=== PATIENT | female | born 1970 | race Caucasian/White ===

== ENCOUNTER 2021-06-07 17:44 | Outpatient (CLI) | payer MEDICARE, SELFPAY ==
--- NOTE | ~2021-06-07 | MM_ITS ---
EXAMINATION: MM screening [facility] BI w babar HISTORY: Screening TECHNIQUE: Craniocaudal and mediolateral oblique 3-D tomosynthesis images were obtained and synthetic 2-D images were generated. CAD analysis was submitted and interpreted. COMPARISON: Comparison to multiple prior studies sequentially, with oldest reviewed study dated 07/23. BREAST PARENCHYMAL COMPOSITION: There are scattered areas of fibroglandular density. FINDINGS: There is no evidence of suspicious mass, calcification, or architectural distortion to sugg est malignancy in either breast. There has been no suspicious interval change. IMPRESSION: 1. No mammographic evidence of malignancy. 2. Recommend routine screening mammography in one year. BI-RADS Category 1: Negative Reviewed, dictated and finalized at location A.
== END 2021-06-07 17:45 | disposition home or self-care (01) ==
LOC: ANHIMG 17:52
PROVIDERS: PCP Emergency Medicine; Visit Provider Emergency Medicine
DX: Z12.31 Encounter for screening mammogram for malignant neoplasm of breast (principal)
CPT/HCPCS: 77063; 77067

== ENCOUNTER 2022-08-10 01:56 | Emergency (ER) | payer MEDICARE, MEDICAID, SELFPAY ==
[2022-08-10 02:04] VITALS: BP 147/107; PULSE 103; RESP 20; O2SAT 100
[2022-08-10] MEDS: diphenhydrAMINE HCl CAP 25 MG CAPSULE 50 MG PO (02:44)
[2022-08-10] MEDS: FAMOTIDINE 20 MG TABLET PO (02:44)
--- NOTE | 2022-08-10 02:49 | ED.GENADULT ---
HPI - General Adult General Chief complaint: Extremity Injury, Upper Stated complaint: left hand swollen Time Seen by Provider: 08/10/22 02:19 History of Present Illness HPI narrative: Patient 52-year-old female presents emerged from with chief complaint of left hand swelling. Patient reports that she was laying down on her bed and noticed that her hand started swelling the patient states that she had a bit of a tingling sensation on the hand and noticed that the dorsum of her left hand was significantly swollen. The patient states that the swelling went down and then came back up and noticed that she had some small bumps on the hand. The patient denies itching reports that her hand also cramped up during the episode. Related Data Allergies Allergy/AdvReac Type Severity Reaction Status Date / Time naproxen Allergy Mild ITCHING Verified 08/10/22 02:08 AND RASH Penicillins Allergy Mild RASH WITH Verified 08/10/22 02:08 ITCHING fentanyl AdvReac Unknown N&V Verified 08/10/22 02:08 Review of Systems Review of Systems: A 10 system review of systems was completed on the patient and is negative except for what is stated in the HPI. Nursing and ancillary documentation was reviewed. Exam Narrative: GENERAL: Well-appearing, well-nourished, and in no acute distress. HEAD: Normocephalic, atraumatic. EYES: PERRLA and EOMI. ENT: Nares clear, no rhinorrhea or epistaxis. Mucous membranes moist. NECK: Supple. CHEST: Clear to auscultation. No respiratory distress. HEART: Regular rate and rhythm. No murmur heard. Normal peripheral pulses. ABDOMEN: Soft, nontender, nondistended, normal active bowel sounds. EXTREMITIES: Normal range of motion. No edema. SKIN: Warm, dry, small red erythematous rash present on the dorsum of the left hand at the thenar area. There is no fluctuance there is no crepitance. Patient has full range of motion her hand. NEURO: No focal deficits. Alert and oriented x3. 5 out of 5 strength in all extremities no paresthesias present no facial droop. NIH 0 PSYCH: Normal mood and affect. Course Vital Signs Vital signs: Vital Signs Pulse Rate 103 H 08/10/22 02:04 Respiratory Rate 20 08/10/22 02:04 Blood Pressure 147/107 H 08/10/22 02:04 Pulse Oximetry 100 08/10/22 02:04 Pulse Rate 103 H 08/10/22 02:04 Respiratory Rate 20 08/10/22 02:04 Blood Pressure 147/107 H 08/10/22 02:04 Pulse Oximetry 100 08/10/22 02:04 Medical Decision Making Vital Signs Vital Signs: Vital Signs Pulse Rate 103 H 08/10/22 02:04 Respiratory Rate 20 08/10/22 02:04 Blood Pressure 147/107 H 08/10/22 02:04 Pulse Oximetry 100 08/10/22 02:04 Pulse Rate 103 H 08/10/22 02:04 Respiratory Rate 20 08/10/22 02:04 Blood Pressure 147/107 H 08/10/22 02:04 Pulse Oximetry 100 08/10/22 02:04 Discharge Plan Discharge Clinical Impression: Allergic reaction Patient Disposition: Home, Self-Care Condition: Stable Instructions: Antibiotic Form, Allergies (ED), General Allergic Reaction (ED) Prescriptions: New prednisone 20 mg tablet 40 mg PO DAILY 5 Days Qty: 10 0RF Follow-up/Referrals: Tal Rosario MD [Primary Care Provider] - Time of Disposition: 02:52
[2022-08-10 02:59] VITALS: BP 143/99; PULSE 71; RESP 23; O2SAT 95
== END 2022-08-10 03:04 | disposition home or self-care (01) ==
PROVIDERS: Emergency Provider Emergency Medicine; PCP Emergency Medicine
DX: T78.40XA Allergy, unspecified, initial encounter (principal)
CPT/HCPCS: 96372; 99283; A9270; J1100

== ENCOUNTER 2022-11-05 15:00 | Outpatient (CLI) | payer MEDICARE, SELFPAY ==
--- NOTE | ~2022-11-05 | MM_ITS ---
EXAMINATION: MM screening [facility] BI w babar HISTORY: Screening TECHNIQUE: Craniocaudal and mediolateral oblique 3-D tomosynthesis images were obtained and synthetic 2-D images were generated. CAD analysis was submitted and interpreted. COMPARISON: Comparison to multiple prior studies sequentially, with oldest reviewed study dated 03/2016. BREAST PARENCHYMAL COMPOSITION: There are scattered areas of fibroglandular density. FINDINGS: There is no evidence of suspicious mass, calcification, or architectural distortion to sugg est malignancy in either breast. There has been no suspicious interval change. IMPRESSION: 1. No mammographic evidence of malignancy. 2. Recommend routine screening mammography in one year. BI-RADS Category 1: Negative Reviewed, dictated and finalized at location A. SORTER
== END 2022-11-05 15:01 | disposition home or self-care (01) ==
PROVIDERS: PCP Emergency Medicine; Visit Provider Emergency Medicine
DX: Z12.31 Encounter for screening mammogram for malignant neoplasm of breast (principal)
CPT/HCPCS: 77063; 77067

== ENCOUNTER 2023-12-02 15:27 | Outpatient (CLI) | payer MEDICARE, MEDICAID, SELFPAY ==
--- NOTE | ~2023-12-02 | MM_ITS ---
EXAMINATION: MM screening [facility] BI w babar HISTORY: Screening mammogram TECHNIQUE: Craniocaudal and mediolateral oblique 3-D tomosynthesis images were obtained and synthetic 2-D images were generated. CAD analysis was submitted and interpreted. COMPARISON: November 05, 2022, June 07, 2021, June 02, 2019 bilateral screening mammogram e xaminations BREAST PARENCHYMAL COMPOSITION: There are scattered areas of fibroglandular density. FINDINGS: There is no evidence of suspicious mass, calcification, or architectural distortion to sugg est malignancy in either breast. There has been no suspicious interval change. IMPRESSION: 1. No mammographic evidence of malignancy. 2. Recommend routine screening mammography in one year. BI-RADS Category 1: Negative Reviewed, dictated and finalized at location A.
== END 2023-12-02 15:28 | disposition home or self-care (01) ==
PROVIDERS: PCP Emergency Medicine; Visit Provider Emergency Medicine
DX: Z12.31 Encounter for screening mammogram for malignant neoplasm of breast (principal)
CPT/HCPCS: 77063; 77067

== ENCOUNTER 2024-01-06 13:56 | Emergency (ER) | payer MEDICARE, MEDICAID, SELFPAY ==
[2024-01-06 14:03] VITALS: BP 162/109; PULSE 100; RESP 16; TEMP 36.6; O2SAT 99
[2024-01-06 14:18] VITALS: BP 153/85; PULSE 80; RESP 15; O2SAT 99
[2024-01-06 14:25] LABS: Basophils Absolute Auto 0.1 K/mm3 (0.0-0.1); Basophils Percent Auto 0.7 % (0.2-1.2); Eosinophils Absolute Auto 0.5 K/mm3 (0-0.3); Eosinophils Percent Auto 4.1 % (0-4.4); Hematocrit 47.7 % (37.0-47.0); Hemoglobin 15.7 g/dL (12.0-15.0); Immature Granulocyte Absolute 0.02 K/mm3 (0.00-0.031); Immature Granulocyte Percent A 0.2 % (0-0.5); Lymphocytes Absolute Auto 3.72 K/mm3 (0.9-3.2); Mean Corpuscular HGB Conc 32.9 g/dl (32-36); Mean Corpuscular Hemoglobin 29.8 pg (26-34); Mean Corpuscular Volume 90.7 fl (80-100); Mean Platelet Volume 11.1 fl (7.4-10.4); Monocytes Absolute Auto 1.2 K/mm3 (0.1-0.6); Monocytes Percent Auto 9.6 % (2.6-8.5); Neutrophils Absolute Auto 6.9 K/mm3 (1.3-6.7); Neutrophils Percent Auto 55.4 % (45.5-73.1); Platelet Count Result 391 k/mm3 (150-375); Red Blood Count 5.26 M/mm3 (4.2-5.4); Red Cell Distribution Width 13.2 % (11.5-14.5); White Blood Count 12.4 K/mm3 (4.5-10.0)
[2024-01-06] MEDS: SODIUM CHLORIDE 0.9% IV 1,000 ML 999 ML IV CONT (14:26)
--- NOTE | 2024-01-06 14:28 | ED.GENADULT ---
HPI - General Adult General Chief complaint: Unspecified Stated complaint: cramping, diarrhea, JUAN Time Seen by Provider: 01/06/24 13:58 History of Present Illness HPI narrative: 53-year-old female history of polycythemia vera and chronic back pain presents to the emergency room for evaluation nausea vomiting and a burning sensation in her fingertips. Patient admits to taking multiple herbal supplements, RYZE, for the past 9 days. Patient states she has been ingesting a coffee, tea, hot cocoa supplements that are made from various ground up with mushrooms. Reports her last use was 2 days ago when she began experiencing the abdominal cramping, burning sensation fingers Related Data Allergies Allergy/AdvReac Type Severity Reaction Status Date / Time naproxen Allergy Mild ITCHING Verified 08/10/22 02:08 AND RASH Penicillins Allergy Mild RASH WITH Verified 08/10/22 02:08 ITCHING fentanyl AdvReac Unknown N&V Verified 08/10/22 02:08 Review of Systems Review of Systems: CONSTITUTIONAL: Denies fever, chills, or sweats. EYES: Denies visual changes, redness, or discharge. ENT: Denies rhinorrhea, congestion, sore throat, or otalgia. CARDIOVASCULAR: Denies chest pain, palpitations, or edema. RESPIRATORY: Denies cough or dyspnea. GASTROINTESTINAL: Reports abdominal pain, nausea, vomiting, diarrhea GENITOURINARY: Denies dysuria or hematuria. SKIN: Denies rash or itching. MUSCULOSKELETAL: Denies back pain, joint pain, or myalgia. NEUROLOGIC: Reports paresthesias in finger tip. PSYCHIATRIC: Denies anxiety or depression. Exam Narrative: GENERAL: Well-appearing, well-nourished, morbidly obese HEAD: Normocephalic, atraumatic. EYES: Conjunctivae normal, PERRLA and EOMI. CHEST: Clear to auscultation. No respiratory distress. No wheezes rales or rhonchi. HEART: Regular rate and rhythm. No murmur heard. Normal peripheral pulses. ABDOMEN: Soft, nontender, nondistended, normal active bowel sounds. BACK: No CVA tenderness EXTREMITIES: Normal range of motion. No edema. No clubbing or cyanosis SKIN: Warm, dry, no rash. No noted wounds NEURO: No focal deficits. Alert and oriented x3. MAEW. CN's II-XI intact bilaterally, normal gait PSYCH: Cooperative. Anxious. Course Vital Signs Vital signs: Vital Signs Temperature 36.6 C 01/06/24 14:03 Pulse Rate 100 01/06/24 14:03 Respiratory Rate 16 01/06/24 14:03 Blood Pressure 162/109 H 01/06/24 14:03 Pulse Oximetry 99 01/06/24 14:03 Oxygen Delivery Room Air 01/06/24 14:03 Temperature 36.6 C 01/06/24 14:03 Pulse Rate 63 01/06/24 15:31 Respiratory Rate 18 01/06/24 15:31 Blood Pressure 122/108 H 01/06/24 15:31 Pulse Oximetry 100 01/06/24 15:31 Oxygen Delivery Room Air 01/06/24 14:03 Medical Decision Making MDM Narrative Medical decision making narrative: 53-year-old female presented to emergency room complaints of abdominal cramping, vomiting and diarrhea for couple of days. Stated she has been ingesting a herbal supplemental TPN coffee containing mushroom products. Poison Control is contacted, recommendations were to be drawn CMP to assess for kidney and liver function. Liver was unremarkable. Urine showed evidence of a urinary tract infection. Patient was given Zofran her symptoms instructed patient to stay using the supplemental drinks and push fluids. Vital Signs Vital Signs: Vital Signs Temperature 36.6 C 01/06/24 14:03 Pulse Rate 100 01/06/24 14:03 Respiratory Rate 16 01/06/24 14:03 Blood Pressure 162/109 H 01/06/24 14:03 Pulse Oximetry 99 01/06/24 14:03 Oxygen Delivery Room Air 01/06/24 14:03 Temperature 36.6 C 01/06/24 14:03 Pulse Rate 63 01/06/24 15:31 Respiratory Rate 18 01/06/24 15:31 Blood Pressure 122/108 H 01/06/24 15:31 Pulse Oximetry 100 01/06/24 15:31 Oxygen Delivery Room Air 01/06/24 14:03 Lab Data 01/06/24 14:19 01/06/24 14:19 Labs:
[2024-01-06 14:36] LABS: Alanine Aminotransferase 31 U/L (6-35); Albumin Level 4.8 g/dL (3.5-5.1); Alkaline Phosphatase 87 U/L (38-126); Anion Gap 9 mmol/L (4-12); Aspartate Amino Transferase 37 U/L (14-36); Blood Urea Nitrogen 17 mg/dL (7-17); Calcium 9.5 mg/dL (8.4-10.2); Carbon Dioxide 24 mmol/L (22-30); Chloride 104 mmol/L (98-107); Estimated CRCL calculation 88 ml/min; Estimated Glomerular Filt Rate > 60; Glucose 105 mg/dL (65-110); Lipase 70 U/L (23-300); Sodium 137 mmol/L (137-145)
[2024-01-06 14:37] LABS: Large Platelets Present; Platelet Estimate Slightly Increased (Adequate); Schistocytes None Seen
[2024-01-06] MEDS: diphenhydrAMINE HCl INJ 50 MG/ML VIAL 25 MG IV PUSH (14:41)
[2024-01-06] MEDS: ONDANSETRON INJ 4 MG/2 ML VIAL IV PUSH (15:06)
[2024-01-06 15:17] VITALS: BP 156/78; PULSE 63; RESP 15; O2SAT 100
[2024-01-06 15:31] VITALS: BP 122/108; PULSE 63; RESP 18; O2SAT 100
[2024-01-06 15:34] LABS: Appearance Urine Cloudy (Clear); Bacteria Urine 3+ /hpf; Bilirubin Urine 1+ (Negative); Blood Urine Negative (Negative); Color Urine Dark Yellow (Yellow); Glucose Urine UA Negative (Negative); Hyaline Casts Urine Present /lpf; Ketones Urine 1+ mg/dL (Negative); Leukocyte Esterase Ur Negative LEU/UL (Negative); Need Manual Microscopic Reviewed; Nitrate Urine Negative (Negative); Protein Urine 1+ mg/dL (Negative); Squamous Epithelial Cell Urine Few /hpf (Few); pH Urine 5.5 (5.0-9.0)
[2024-01-06 15:37] LABS: Add Urine Microscopic? YES; Specific Grav Ur 1.031 (1.001-1.035)
--- NOTE | 2024-01-06 15:46 | PC.NURSE ---
1407 Spoke with poison control who recommended testing the pts liver and kidney functions as herbs can cause damage.
== END 2024-01-06 15:59 | disposition home or self-care (01) ==
PROVIDERS: Emergency Provider Nurse Practitioner Family; PCP Emergency Medicine
DX: K52.9 Noninfective gastroenteritis and colitis, unspecified (principal); T65.91XA Toxic effect of unspecified substance, accidental (unintentional), initial encounter; N30.90 Cystitis, unspecified without hematuria
CPT/HCPCS: 36415; 80053; 81001; 83690; 85025; 87077; 87086; 87088; 96361; 96374; 96375; 99284; J1200; J2405; J7030

== ENCOUNTER 2024-01-09 08:39 | Outpatient (CLI) | payer MEDICARE, MEDICAID, SELFPAY ==
--- NOTE | ~2024-01-09 | DEXA_ITS ---
Bone Density Report Name: MELODY CHARLTON Age: 53 Sex: Female Ethnicity: White Date of : 1970 Indication: postmenopausal; screening for osteoporosis; history of glucocorticoids; cancer; asthma or emphysema; Referring Provider: IRMA MOSQUERA Study: Bone densitometry was performed. Exam Date: January 09, 2024 Accession number: [id number] Bone Density: Region BMD T-score Z-score Classification AP Spine(L1-L4) 1.043 0.0 1.1 Normal Femoral Neck (Left) 0.742 -1.0 0.1 Normal Total Hip (Left) 1.034 0.8 1.5 Normal Femoral Neck (Right) 0.713 -1.2 -0.1 Osteopenia Total Hip (Right) 0.985 0.4 1.1 Normal Total Hip Mean 1.009 0.6 1.3 Normal World Health Organization criteria for BMD impression classify patients as: Normal (T-score at or above -1.0), Osteopenia (T-score between -1.0 and -2.5), or Osteoporosis (T-score at or below -2.5). 10-year Fracture Risk(1): Major Osteoporotic Fracture 8.9% Hip Fracture 0.6% Reported Risk Factors: [place] (), Neck BMD=0.713, BMI=41.3, glucocorticoids Input outside FRAX(R) limits. Adjusted to:Fnuyty=278 kg (1) FRAX(R) Version 3.08. Fracture probability calculated for an untreated patient. Fracture probability may be lower if the patient has received treatment. Clinical Information Provided by Patient: Has taken Glucocorticoids Has used the following medications: Vitamin D Has the following medical conditions: Asthma or Emphysema, Cancer Patient maximum height was 68.5 Menopause Age: 52 Drinks caffeinated beverages Onset of menses at age 11 Number of children 2 Impression: The patient has low bone mass, based on the Right Femoral Neck T-score. The patient has an estimated ten-year risk of hip fracture of 0.6% and an estimated ten-year risk of major fracture of 8.9%, based on the WHO FRAX algorithm. The patient has risk factors, including: history of glucocorticoid therapy. Discussion: BONE DENSITY IS LOW AT ONE OR MORE SKELETAL SITES. This patient's lowest T-score is low at one or more skeletal sites. It meets the World Health Organization's (WHO) criteria for ?low bone mass? (T-score between -1.0 and -2.5). The patient's 10-year risk of fracture as calculated by FRAX is less than the threshold where pharmacological therapy is recommended by the National Osteoporosis Foundation (NOF). However, all treatment decisions require clinical judgment and consideration of individual patient factors, including patient preferences, comorbidities, previous drug use, risk factors not captured in the FRAX model (e.g., frailty, falls, vitamin D deficiency, increased bone turnover, interval significant decline in bone density) and possible under or overestimation of fracture risk by FRAX. The patient should follow a healthful lifestyle (good nutrition with adequate calcium and vitamin D, and appropriate weight-bearing exercise). Follow-Up: Consider repeating this study in 2 to 3 years to reassess this patient's status, or sooner if there is some new clinical indication. Reported by: STANISLAW on 01/09/2024 9:24:00 AM. Reviewed, dictated and finalized at location [facility]
== END 2024-01-09 08:40 | disposition home or self-care (01) ==
PROVIDERS: PCP Emergency Medicine; Visit Provider Emergency Medicine
DX: M85.88 Other specified disorders of bone density and structure, other site (principal); Z78.0 Asymptomatic menopausal state
CPT/HCPCS: 77080

== ENCOUNTER 2024-06-07 01:52 | Day surgery (SDC) | payer MEDICARE, MEDICAID, SELFPAY ==
[2024-02-09 15:23] VITALS: BMI 41.1
[2024-03-04 16:09] VITALS: BMI 41.1
--- NOTE | 2024-03-19 10:02 | SUR.PREOP ---
0958 Attempted to call patient in regards to arriving earlier, unable to leave message as the mail box is full. Attempted to call her helper/driver/call or contact centre manager. Was unable to leave message.
--- NOTE | 2024-03-19 11:50 | SUR.PREOP ---
PATIENT CALLED 1150 AND SAID SHE IS NOT CLEANED OUT STILL HAVING BROWN SOFT STOOLS. WE DISCUSSED CANCELLING HER TODAY AND HAVE HER DO A 2 DAY PREP. I TOLD HER I WOULD DISCUSS HER PREP WITH DR. CUADRA AND THEN WE WOULD CALL HER TO GET HER RESCHEDULED. PATIENT SAID SHE HAD TO DO A TWO DAY PREP IN THE PAST. EXPLAINED THAT IF SHE HAD THIS ISSUE BEFORE SHE MOST LIKELY WOULD NEED TO DO A TWO PREP FOR ALL FUTURE COLONOSCOPIES. PATIENT VOICED UNDERSTANDING. [address] CUADRA REGARDING PREP, HE WOULD LIKE HER TO DO HIS STANDARD 2 DAY MIRALAX/MAG CITRATE X2 PREP.
[2024-05-31 11:10] VITALS: BMI 41.8
[2024-06-07 08:56] VITALS: BP 106/64; PULSE 99; RESP 18; TEMP 36.1; O2SAT 99; BMI 41.7
[2024-06-07] MEDS: LACTATED RINGERS 1,000 ML 150 ML IV CONT (09:08)
--- NOTE | 2024-06-07 09:34 | WPDANESEPPF ---
Anes - Initial Pre Proc Eval Procedure: Operation Date: 03/19/24 15:00 Proposed Procedures p Colonoscopy - Wilder Holcomb MD Operation Date: 06/07/24 09:30 Proposed Procedures p Colonoscopy - Wilder Holcomb MD Date/Time: 06/07/24 09:34 Surgeon: Wilder Holcomb MD Pre Op Diagnosis: Family history malignant neoplasm of digestive org Patient Data Age: 54 Gender: F Height: 1.73 m Weight: 124.4 kg Last Vital Signs Temp 97.0 F L 06/07/24 08:56 Pulse 99 06/07/24 08:56 Resp 18 06/07/24 08:56 BP 106/64 06/07/24 08:56 Pulse Ox 99 06/07/24 08:56 O2 Del Method Room Air 06/07/24 08:56 Allergies Allergy/AdvReac Type Severity Reaction Status Date / Time naproxen Allergy Mild ITCHING Verified 06/07/24 08:50 AND RASH Penicillins Allergy Mild RASH WITH Verified 06/07/24 08:50 ITCHING fentanyl AdvReac Unknown N&V Verified 06/07/24 08:50 Home Medications Medication Instructions Recorded Confirmed Type cyclobenzaprine 10 mg tablet 10 mg PO BID PRN Spasms 03/04/24 06/07/24 History dextroamphetamine-amphetamine 15 15 mg PO BID 03/04/24 06/07/24 History mg tablet hydrocodone 7.5 mg-acetaminophen 1 tablet PO TID PRN Pain 03/04/24 06/07/24 History 325 mg tablet albuterol sulfate 90 mcg/actuation 1 puff inhalation PRN PRN 05/31/24 06/07/24 History aerosol inhaler Shortness Of Breath Or Wheezing diazepam 10 mg tablet 10 mg PO BID PRN muscle spasms 05/31/24 06/07/24 History Patient hx anesthesia problems: none Family hx anesthesia problems: none Results Review: All pre-operative results and documents have been reviewed as part of the pre-operative evaluation. [facility] Social History Social History Smoking status: Never smoker Alcohol intake: never Substance use: current Substance use type: marijuana Other substance usage details: Frequency varies, patient has not used recently Last use: Pt unsure Living arrangements: with family Spiritual care concerns: No Anes - Eval Final PreProcedure Day of Procedure 06/07/24 09:34 Patient weight: morbidly obese Heart: regular rate and rhythm Lungs: clear to auscultation Airway: Mallampati scale class II Neurological: alert and oriented Last oral intake: >/= 8 hours ASA classification: III Emergent: no Anesthetic plan: proceed Anesthesia type and monitoring: general GIVS and standard monitoring Results Review: All pre-operative results and documents have been reviewed as part of the pre-operative evaluation. Hx of polylcythemia vera, marijuana smoker, difficult to quantitate. Informed Consent: The patient's anesthetic plan and its attendant risks and benefits were discussed with the patient/family/POA. Questions were solicited and answers provided to the satisfaction of the patient/family/POA.
--- NOTE | 2024-06-07 10:23 | PM.HPGS ---
History of Present Illness History of Present Illness Consent: Risks, benefits, and alternatives have been discussed and questions answered. Patient agrees to proceed with procedure. Chief complaint: Family history malignant neoplasm of digestive org Narrative: Ericka Bruno is a 54 year old female with last colonoscopy 5 years ago, sibling had colon cancer Review of Systems Review of Systems: All systems reviewed & are unremarkable except as noted in HPI and below PMFSH Past Medical History Medical History (Updated 06/07/24 @ 10:26 by Wilder Holcomb MD) Family history of colon cancer Social History Social History Smoking status: Never smoker Alcohol intake: never Substance use: current Substance use type: marijuana Other substance usage details: Frequency varies, patient has not used recently Last use: Pt unsure Living arrangements: with family Spiritual care concerns: No Meds Home Medications and Allergies Home Medications Medication Instructions Recorded Confirmed Type cyclobenzaprine 10 mg tablet 10 mg PO BID PRN Spasms 03/04/24 06/07/24 History dextroamphetamine-amphetamine 15 15 mg PO BID 03/04/24 06/07/24 History mg tablet hydrocodone 7.5 mg-acetaminophen 1 tablet PO TID PRN Pain 03/04/24 06/07/24 History 325 mg tablet albuterol sulfate 90 mcg/actuation 1 puff inhalation PRN PRN 05/31/24 06/07/24 History aerosol inhaler Shortness Of Breath Or Wheezing diazepam 10 mg tablet 10 mg PO BID PRN muscle spasms 05/31/24 06/07/24 History Allergies Allergy/AdvReac Type Severity Reaction Status Date / Time naproxen Allergy Mild ITCHING Verified 06/07/24 08:50 AND RASH Penicillins Allergy Mild RASH WITH Verified 06/07/24 08:50 ITCHING fentanyl AdvReac Unknown N&V Verified 06/07/24 08:50 Vital Signs Vital Signs - 24 hr 06/07/24 08:56 Temperature 97.0 F L Pulse Rate 99 Respiratory Rate 18 Blood Pressure 106/64 Pulse Oximetry 99 Oxygen Delivery Room Air Exam Const: General: comfortable and no acute distress HENMT: Face/Nose/Sinus: Normal nares present Eyes: General: appearance normal, both eyes and all related structures Neck: Neck: no JVD Resp: Auscultation: clear to auscultation bilaterally Cardio: Rate: regular rate Rhythm: regular rhythm GI: Inspection: non-distended GI Palp: Yes Soft to palpation Skin: General skin exam: normal color Neuro: General: gait normal Speech: normal speech Extrem: General: normal to inspection Psych: Mental Status: mental status grossly normal Assessment and Plan Assessment and plan (1) Family history of colon cancer: Code(s): Z80.0 - Family history of malignant neoplasm of digestive organs Status: Acute Assessment and Plan: colonoscopy
[2024-06-07 10:43] VITALS: BP 139/101; PULSE 75; RESP 17; O2SAT 97
[2024-06-07 10:53] VITALS: BP 165/102; PULSE 69; RESP 19; O2SAT 99
[2024-06-07 11:03] VITALS: BP 164/99; PULSE 70; RESP 20; O2SAT 99
== END 2024-06-07 11:18 | disposition home or self-care (01) ==
PROVIDERS: PCP Emergency Medicine; Visit Provider Internal Medicine Gastroenterology
PROC: 0DJD8ZZ Inspection of Lower Intestinal Tract, Via Natural or Artificial Opening Endoscopic (ICD-10-PCS; CPT 45378; principal; 2024-03-19 15:00)
DX: Z12.11 Encounter for screening for malignant neoplasm of colon (principal); K64.4 Residual hemorrhoidal skin tags; K64.8 Other hemorrhoids; F12.90 Cannabis use, unspecified, uncomplicated; E66.01 Morbid (severe) obesity due to excess calories; Z68.41 Body mass index [BMI] 40.0-44.9, adult; Z79.891 Long term (current) use of opiate analgesic; Z79.51 Long term (current) use of inhaled steroids; Z80.0 Family history of malignant neoplasm of digestive organs
CPT/HCPCS: G0105; J2704; J7120

== ENCOUNTER 2025-01-10 01:05 | Day surgery (SDC) | payer MEDICARE, MEDICAID, SELFPAY ==
[2025-01-07 11:09] VITALS: BMI 44.4
--- OUTSIDE RECORDS SUMMARY | 2025-01-10 01:09 | XMS_ITS | Clinical Summary ---
Author Organization [facility] Address [address] [place] [address] Care Team Providers Care Technician Support Engineer Name Role Phone Tal Rosario MD Primary Care Provider [phone] Tal Rosario MD Unavailable Source Comments [facility],non-owned Affiliates and Associated Physician Practices is amultiple site organization consisting of ambulatory clinics and hospital sitesin [place], [place], [place] and [place]. This disclosure is being madepursuant to the Care Everywhere program and may not contain all information available regarding this patient. Last updated 18.[facility] Allergies Active Allergy Reactions Criticality Noted Date Comments Fentanyl OPERATING ROOM SURGICAL TECHNOLOGIST Dysfunction 02/25/2023 Penicillins Anaphylaxis High 02/25/2023 Penicillins Rash Medium 02/25/2023 Medications * Be aware that medications may not be up to date on this document. Alwaysverify current medications with the patient. albuterol HFA (Proventil; Ventolin; Proair) 108 (90 Base) MCG/ACT inhaler INHALE 2 PUFFS BY MOUTH EVERY 4 TO 6 HOURS NEEDED FOR SHORTNESS OF BREATH 2 Active amphetamine-dex troamphetamine (Adderall) 15 MG tablet Take 1 (one) tablet by mouth 2 times daily 3 Active cyclobenzaprine (Flexeril) 10 MG tablet Take 1 (one) tablet by mouth 2 times daily as needed 3 Active diazePAM (Valium) 10 MG tablet Take 1 (one) tablet by mouth Active diphenhydrAMINE (Benadryl) 25 MG capsule Take 1 (one) capsule by mouth every 6 hours as needed Active HYDROcodone-rickey taminophen ([place]) 7.5-325 MG tablet Take 1 (one) tablet by mouth 3 times daily as needed 3 Active spironolactone (Aldactone) 50 MG tablet Take 1 (one) tablet by mouth once daily 3 Active montelukast (Singulair) 10 MG tablet 4 Active Active Problems Problem Noted Date Diagnosed Date 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 Vitreous hemorrhage of left eye (HCC) due to PVD 01/28/2024 Family History Medical History Relation Name Comments Asthma Brother Cancer - Colon Brother Lymphoma Mother Relation Name Status Comments Brother Mother Social History Tobacco Use Types Packs/Day Years Used Date Smoking Tobacco: Never Smokeless Tobacco: Never Tobacco Cessation:Counseling Given: Not Answered Alcohol Use Standard Drinks/Week Comments Not Currently 0 (1 standard drink = 0.6 oz pur e alcohol) Social Comments Unknown Sex and Gender Information Value Date Recorded Sex Assigned at Not on file 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 Gender Identity Not on file Sexual Orientation Not on file Last Filed Vital Signs Vital Sign Reading Time Taken Comments Blood Pressure 130/118 01/27/2024 3:09 AM CDT Pulse 92 01/27/2024 3:09 AM CDT Temperature 36 C (96.8 F) 01/26/2024 9:42 PM CDT Respiratory Rate 19 01/27/2024 2:29 AM CDT Oxygen Saturation 96% 01/27/2024 3:09 AM CDT Inhaled Oxygen Concentration - - Weight 122.5 kg (270 lb) 01/26/2024 6:29 PM CDT Height 172.7 cm (5' 8 ) 01/26/2024 6:29 PM CDT Body Mass Index 41.05 01/26/2024 6:29 PM CDT Plan of Treatment Health Maintenance Due Date Last Done Comments OGNICOLERD (AGES 45-75) - COL ON CA SCREENING 1968 COLON MONITORING 1968 COLONOSCOPY - COLON CA SCREENING 1968 CT COLONOGRAPHY - COLON CA SCREENING 1968 Colorectal Cancer Screening 1968 FIT - COLON CA SCREENING 1968 FLEX SIG - COLON CA SCREENING 1968 LIPID TESTING 1968 MAMMOGRAM 1968 PAP SMEAR 1968 HEPATITIS C SCREENING 03/19/1986 DTAP/TDAP/TD VACCINES (1 - Tdap) 1987 HEPATITIS B VACCINE (1 of 3 - 19+ 3-dose series) 1987 PNEUMOCOCCAL VACCINE 50+ (1 of 1 - PCV) 2018 ZOSTER VACCINE (1 of 2) 2018 COVID-19 VACCINE (1 - 2023-2 5 season) 2024 DEPRESSION SCREENING 09/22/2024 MEDICARE AWV CALENDAR YEAR 2024 INFLUENZA VACCINE (Season Ended) 2025 SCREENING FOR DIABETES 01/25/2027 01/26/2024 HIV SCREENING Completed 01/27/2024 HIB VACCINE Aged Out No longer eligi ble based on patient's age to complete this topic HPV VACCINE Aged Out No longer eligi ble based on patient's age to complete this topic MENINGOCOCCAL (Group B) VACC INE SHARED DECISION-MAKING Aged Out No longer eligibl e based on patient's age to complete this topic MENINGOCOCCAL GROUPS A/C/Y/W VACCINE Aged Out No longer eligible b ased on patient's age to complete this topic Procedures Procedure Name Priority Date/Time Associated Diagnosis Comments HIV-1 HIV-2 ANTIBODY + HIV P24 AG PANEL STAT 01/27/2024 2:59 AM CDT COMPREHENSIVE METABOLIC PANEL STAT 01/26/2024 11:35 PM CDT from Last 3 Months or Most Recently Relevant to Health Maintenance Results * HIV-1 HIV-2 ANTIBODY + HIV P24 AG PANEL (01/27/2024 2:59 AM CDT) HIV Antigen/Antibod y 1 & 2 Non-reacti ve Non-react alina 01/27/2024 3:53 AM CDT [facility] Comment:No Laboratory eviden ce of HIV infection. Blood BLOOD SPECIMEN / Unknown Venipuncture / Unknown 01/27/2024 2:59 AM CDT 01/27/2024 3:06 AM CDT us Sahil Ponce MD LAB - CHEMISTRY ORDERABLES Fin al Result [facility] [address] [place] [address], [facility] [phone] * (ABNORMAL) COMPREHENSIVE METABOLIC PANEL (01/26/2024 11:35 PM CDT) BUN 13 7 - 26 mg/dL 01/27/2024 12:20 AM [facility] Creatinine 0.84 0.56 - 0.96 mg/dL 01/27/2024 12:20 AM [facility] Sodium 138 136 - 145 mmol/L 01/27/2024 12:20 AM [facility] Potassium 4.1 3.5 - 4.5 mmol/L 01/27/2024 12:20 AM [facility] Chloride 106 98 - 107 mmol/L 01/27/2024 12:20 AM [facility] CO2 21(L) 22 - 29 mmol/L 01/27/2024 12:20 AM [facility] Glucose 100 70 - 115 mg/dL 01/27/2024 12:20 AM [facility] Calcium 10.1 8.4 - 10.2 mg/dL 01/27/2024 12:20 AM [facility] Protein Total 7.3 6.0 - 8.3 g/dL 01/27/2024 12:20 AM [facility] Albumin 4.0 3.4 - 5.0 g/dL 01/27/2024 12:20 AM [facility] Bilirubin Total 0.5 0.2 - 1.2 mg/dL 01/27/2024 12:20 AM [facility] Alkaline Phosphatase 85 40 - 150 U/L 01/27/2024 12:20 AM [facility] ALT 19 5 - 55 U/L 01/27/2024 12:20 AM [facility] AST 22 5 - 34 U/L 01/27/2024 12:20 AM [facility] Anion Gap 11 6 - 16 01/27/2024 12:20 AM [facility] BUN/Creatinine Ratio 15 7 - 23 01/27/2024 12:20 AM [facility] Osmolality Calculated 286 275 - 295 mOsm/kg 01/27/2024 12:20 AM [facility] Albumin/Globulin Ratio 1.2 1.1 - 2.3 01/27/2024 12:20 AM [facility] eGFR by CKD-EPI 82(L) >=90 mL/min/1.7 3 m2 01/27/2024 12:20 AM [facility] Blood BLOOD SPECIMEN / Unknown Venipuncture / Unknown 01/26/2024 11:35 PM CDT 01/26/2024 11:54 PM [facility] Sahil Ponce MD LAB - CHEMISTRY ORDERABLES Fin al Result [facility] [address] [place] [address], [facility] [phone] from Last 3 Months or Most Recently Relevant to Health Maintenance Insurance AETNA MEDICARE [facility] MEDICAID - [place] MEDICARE [employer] MEDICARE MANAGED CARE MEDICARE ADV MEDICAID - [place] Care Teams Technician Support Engineer Relationship Specialty Start Date End Date Tal Rosario MD [address] [place] [address] PCP - General Family Medicine 02/26/23 Tal Rosario MD [address] [place] [address] [facility] 02/26/23
--- OUTSIDE RECORDS SUMMARY | 2025-01-10 01:10 | XMS_ITS | Encounter Summary ---
Author Organization [facility] Address [address] [place] [address] Phone Care Team Providers Care Nurse Practitioner Manager Name Role Phone Tal Rosario Primary Care Provider [phone] Charla Brothers MD Unavailable Reason for Visit * Reason Comments Medication Refill Encounter Details Date Type Department Care Team (Late st Contact Info) Description 01/14/2024 Refill [facility] [address] [address] Charla Brothers MD [address] [place] [address] Medication Refill Social History Tobacco Use Types Packs/Day Years Used Date Smoking Tobacco: Never Smokeless Tobacco: Never Alcohol Use Standard Drinks/Week Comments Yes 1 (1 standard drink = 0.6 oz pur e alcohol) rarely Comments Unknown Sex and Gender Information Value Date Recorded Sex Assigned at Not on file 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 Question Answer Date of Assessment Author Patient Health Questionnaire-2 Score 0 01/14/2024 1:19 PM Sulema Mitchell CMA documented as of this encounter Miscellaneous Notes * Telephone Encounter - Sabra James RN - 01/14/2024 2:33 PM CDT Refill request from pharmacy. Please fill if appropriate. documented in this encounter Plan of Treatment Upcoming Encounters Date Type Department Care Team (Late st Contact Info) Description 01/12/2025 1:00 PM CDT Lab [facility] [address] [phone] Charla Brothers MD [address] [place] [address] [phone] Lab [facility] 01/12/2025 1:15 PM CDT Office Visit [facility] [address] [phone] Charla Brothers MD [address] [place] [address] [phone] documented as of this encounter Visit Diagnoses Not on filedocumented in this encounter Care Teams Nurse Practitioner Manager Relationship Specialty Start Date End Date Tal Rosario [address] [place] [address] PCP - General Family Medicine 11/13/22 Charla Brothers MD [address] [place] [address] [phone] Consulting Physician Oncology 03/26/24 documented as of this encounter
--- OUTSIDE RECORDS SUMMARY | 2025-01-10 01:10 | XMS_ITS | Referral Summary ---
Author Organization [facility] Address [address] [place] [address] Care Team Providers Care Screw Machine Set Up Operator Name Role Phone Referral, Self Unavailable Unavailable Rosy Cote MD Unavailable [phone] Charla Brothers MD Unavailable Tal Rosario MD Primary Care Provider [phone] Allergies Active Allergy Reactions Criticality Noted Date Comments Fentanyl Other (See comments) Low 02/25/2023 Penicillamine Rash Medium 01/08/2016 Rash Medications albuterol HFA (PROVENTIL HFA,VENTOLIN HFA,PROAIR HFA) 90 mcg/actuation inhaler Inhale 1 puff every 8 (eight) hours as needed 04/11/2022 Active cyanocobalamin (Vitamin B-12) 1,000 mcg tablet Take 1 tablet (1,000 mcg total) by mouth daily Active cyclobenzaprine (FLEXERIL) 10 mg tablet Take 1 tablet (10 mg total) by mouth 2 (two) times a day as needed 10/24/2022 Active dextroamphetami ne-amphetamine (ADDERALL) 15 mg tablet Take 1 tablet (15 mg total) by mouth 2 (two) times a day Active diazePAM (VALIUM) 10 mg tablet Take 1 tablet (10 mg total) by mouth every 6 (six) hours as needed Active diphenhydrAMINE 25 mg capsule Take 1 tablet/capsu le (25 mg total) by mouth every 8 (eight) hours as needed Active HYDROcodone-rickey taminophen (NORCO) 7.5-325 mg per tablet Take 1 tablet by mouth 3 (three) times a day as needed for pain Active clindamycin (CLEOCIN) 150 mg capsule Take 1 capsule (150 mg total) by mouth every 6 (six) hours 07/22/2024 Active Active Problems Problem Noted Date Diagnosed Date 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 Monthly or less 08/16/2024 Q2: How many drinks containi ng alcohol do you have on a typical day when you are drinking? 1 or 2 08/16/2024 Q3: How often do you have si x or more drinks on one occasion? 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 Gender Identity Not on file Sexual Orientation Not on file Last Filed Vital Signs Vital Sign Reading Time Taken Comments Blood Pressure 136/90 08/16/2024 2:19 PM DIALYSIS TECH Pulse 91 08/16/2024 2:19 PM DIALYSIS TECH Temperature 36.7 C (98.1 F) 08/16/2024 2:19 PM DIALYSIS TECH Respiratory Rate 19 08/16/2024 2:19 PM DIALYSIS TECH Oxygen Saturation 97% 08/16/2024 2:19 PM DIALYSIS TECH Inhaled Oxygen Concentration - - Weight 129 kg (284 lb 6.4 oz) 08/16/2024 2:19 PM DIALYSIS TECH Height 172.7 cm (5' 8 ) 05/07/2024 2:46 PM CDT Body Mass Index 43.24 05/07/2024 2:46 PM CDT Plan of Treatment Not on file Insurance IDPA AETNA MEDICARE GOLD AETNA MEDICARE GOLD [facility] Address: [facility] [id number] [place] [phone] [facility] Care Teams Screw Machine Set Up Operator Relationship Specialty Start Date End Date Tal Rosario MD [facility] [place] [address] PCP - General Family Medicine 05/07/24 Referral, Self 04/30/24 Rosy Cote MD Consulting Physician Hematology 04/30/24 Charla Brothers MD [address] [place] [phone] Referring Physician Hematology 05/05/24
--- OUTSIDE RECORDS SUMMARY | 2025-01-10 01:10 | XMS_ITS | Continuity of Care Document ---
Author Organization [facility] Address [address] [place] [address] Phone Care Team Providers Care Soil Expert Name Role Phone Santana Martins MD Unavailable Unavailable Allergies, Adverse Reactions, Alerts Substance Reaction Status Criticality Penicillins Hives / Skin Rash Active No Informa tion Medications Medication Instructions Dosage Effective Dates (start - stop) Status Comments Patanol 0.1 % Eye Drops instill 1 drop by ophthalmic route 2 times every day into affected eye(s) at an interval of 6 to 8 hours - Active Qvar 40 mcg/Actuation Aerosol Inhaler inhale 2 puff by inhalation route 2 times every day - Active ProAir HFA 90 mcg/Actuation Aerosol Inhaler inhale 2 puff by inhalation route 4 - 6 hours as needed - Active fexofenadine 180 mg Tab take 1 tablet (180MG) by oral route every day 180 MG - Active Vicoprofen 7.5 mg-200 mg Tab - Active Sudafed 12 Hour 120 mg Tab take 1 tablet (120MG) by oral route every 12 hours 120 MG - Active Patanol 0.1 % Eye Drops instill 1 drop by ophthalmic route 2 times every day into affected eye(s) at an interval of 6 to 8 hours - No Longer Active Advance Directives Directive Yes / No Effective Date File Name No Information Encounters Encounter Description Practice Location Reason(s) For Visit Diagnoses Date Provider Providers Copied on Encounter [employer] [facility], [address], [place], [place], [id number] , tel: [phone] [facility] No Information 2 Eliezer Dillon. [address] [place], [place], [id number] , . tel: [phone] [employer], [address] [place] [address], [id number] , tel: [phone] [facility] Allergic rhinitis due to other allergenAcute atopic conjunctivitisINTRI NSIC ASTHMA, UNSPECIFIEDContact dermatitis and other eczema due to other s Nov-3 0201 1 Eliezer Dillon. [address], [id number] , . tel: [phone] Referring Provider: Dario Thomas, [facility] [address], [address]. tel:[phone] [employer], [address] [place] [address], [id number] , tel: [phone] [facility] Allergic rhinitis due to other allergenAcute atopic conjunctivitis January-0 4 1 Eliezer Dillon. [address], [id number] , . tel: [phone] Referring Provider: Dario Thomas, [facility] [address], [address]. tel:[phone] Family History Family Member Type Diagnosis Age At Onset Brother Problem (finding) Allergies Brother Problem (finding) Allergies Father Problem (finding) Allergies Payers Payer name Insurance type Covered green party ID Authoriza tion(s) MEDICARE [place] [id number] Social History Type Description Quantity Date Captured Comments Sex Female Smoking Status No Information Chief Complaint And Reason For Visit No Information Reason For Referral Reason For Referral No Information History Of Present Illness Encounter Date Complaint History Of Prese nt Illness No Information Functional Status Date Functional Assessmen t No Information Instructions Date Instruction Additional Infor mation No Information Assessments Type Assessment Date No Information Patient Care Teams Name Effective Dates (start - stop) Status Members No Information
--- OUTSIDE RECORDS SUMMARY | 2025-01-10 01:10 | XMS_ITS | Clinical Summary ---
Author Organization [facility] Address [address], [address] [place] [address] Phone Care Team Providers Care Oil Lease Buyer Name Role Phone Tal Rosario Primary Care Provider [phone] Charla Brothers MD Unavailable Allergies Active Allergy Reactions Criticality Noted Date Comments Fentanyl Other (see Comments) 02/25/2023 Penicillin V Rash 12/09/2022 Medications cyclobenzaprine (FLEXERIL) 10 MG Tablet TAKE 1 TABLET BY MOUTH TWICE DAILY NEEDED 3 Active HYDROcodone-rickey taminophen (NORCO) 7.5-325 MG Tablet TAKE 1 TABLET BY MOUTH THREE TIMES DAILY NEEDED FOR PAIN 3 Active diphenhydrAMINE (BENADRYL) 25 MG Capsule Take 25 mg by mouth. Active albuterol 108 (90 Base) MCG/ACT Aerosol Solution 2 Active Cyanocobalamin (VITAMIN B-12) 1000 MCG Tablet Take 1,000 mcg by mouth daily. Active other by Other route. Nad vitamin Active spironolactone (ALDACTONE) 50 MG Tablet Take 50 mg by mouth daily. 4 Active famotidine (PEPCID) 10 MG Tablet Take 40 mg by mouth daily. Active amphetamine-dex troamphetamine (Adderall) 15 MG Tablet Take 1 Tablet by mouth 2 times daily. 5 Active diazePAM (Valium) 10 MG Tablet Take 10 mg by mouth 2 times daily as needed. 5 Active Omeprazole 20 MG Tablet Delayed Response Take by mouth. Active amphetamine-dex troamphetamine (ADDERALL) 15 MG Tablet Take 15 mg by mouth 2 times daily. 3 12/16/19 Discontinu ed(Med List Clean Up) diazePAM (Valium) 10 MG Tablet Take 1 Tablet by mouth. 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 Encounters Date Type Department Care Team Description 12/15/2024 1:15 PM CDT Office Visit [facility] [address] [phone] Sharon Quesada APRN, JB Polycythemia vera (HCC) (Primary Dx); Nausea; Gastroesophageal reflux disease without esophagitis; MALORIE-2 gene mutation; B12 deficiency 12/15/2024 1:00 PM CDT Lab [facility] [address] [phone] Nurse, Cc [place] Polycythemia vera (HCC) 12/15/2024 Travel 11/17/2024 1:30 PM CLOUD PHYSICIST Office Visit [facility] [address] [phone] Janice Garnett APRN, CORPORATE TRAINING MANAGER Polycythemia vera (HCC) (Primary Dx); Nausea; MALORIE-2 gene mutation; Thrombocytosis; Gastroesophageal reflux disease without esophagitis 11/17/2024 1:00 PM CLOUD PHYSICIST Lab [facility] [address] [phone] Nurse, Cc [place] Polycythemia vera (HCC) 11/17/2024 Travel 10/22/2024 1:35 PM CLOUD PHYSICIST Lab [facility] [address] [phone] Nurse, Cc [place] Serum calcium elevated 10/22/2024 Travel 10/15/2024 Results Follow-Up [facility] [address] [place] [phone] Charla Brothers MD Serum calcium elevated (Primary Dx) 10/13/2024 2:30 PM CLOUD PHYSICIST Office Visit [facility] [address] [address] Janice Garnett APRN, JB Polycythemia vera (HCC) (Primary Dx); MALORIE-2 gene mutation; Nausea; Gastroesophageal reflux disease without esophagitis 10/13/2024 2:15 PM CLOUD PHYSICIST Lab [facility] [address] [address] [facility]); MALORIE-2 gene mutation; Thrombocytosis 10/13/2024 Refill [facility] [address] [phone] Janice Garnett APRN, CNP Medication Refill 10/13/2024 Travel from Last 3 Months Family History Medical History Relation Name Comments Colon Cancer Brother 1 Dementia Mother Leukemia/Lymphoma Mother Relation Name Status Comments Brother 1 Alive Brother 2 Alive Child 1 Alive Child 2 Alive Child 3 Alive Father pancreatic dise ase Mother large cell non hodgkins Sister 1 Alive Sister 2 Alive Social History Tobacco Use Types Packs/Day Years Used Date Smoking Tobacco: Never Smokeless Tobacco: Never Tobacco Cessation:Counseling Given: Not Answered Alcohol Use Standard Drinks/Week Comments Yes 1 (1 standard drink = 0.6 oz pur e alcohol) rarely Comments Unknown Sex and Gender Information Value Date Recorded Sex Assigned at Not on file Legal Sex Female 11:26 AM CLOUD PHYSICIST Gender Identity Not on file Sexual Orientation Not on file Last Filed Vital Signs Vital Sign Reading Time Taken Comments Blood Pressure 148/88 12/15/2024 1:32 PM CDT Pulse 102 12/15/2024 1:32 PM CDT Temperature 36.4 C (97.5 F) 12/15/2024 1:32 PM CDT Respiratory Rate 18 12/15/2024 1:32 PM CDT Oxygen Saturation 98% 12/15/2024 1:32 PM CDT Inhaled Oxygen Concentration - - Weight 132.2 kg (291 lb 6.4 oz) 12/15/2024 1:32 PM CDT Height 172.7 cm (5' 8 ) 12/15/2024 1:32 PM CDT Body Mass Index 44.31 12/15/2024 1:32 PM CDT Plan of Treatment Upcoming Encounters Date Type Department Care Team (Late st Contact Info) Description 01/12/2025 1:00 PM CDT Lab [facility] [address] [phone] Charla Brothers MD [address] [place] [phone] Lab, [facility] 01/12/2025 1:15 PM CDT Office Visit [facility] [address] [phone] Charla Brothers MD [address] [place] [phone] Health Maintenance Due Date Last Done Comments Hepatitis C Virus (HCV) Screening 1968 Mammogram 1968 TdaP Immunization 1968 SARS-COV-2 Immunization (#1) 1973 Hepatitis B Immunization (1 of 3 - 19+ 3-dose series) 1987 Pneumococcal Immunization (5 0+ years) (1 of 2 - PCV) 1987 Zoster Immunization (1 of 2) 1987 Pap Smear 1989 Cervical Cancer Screening (CCS) 1998 HPV/Cotest 1998 Colonoscopy 2013 Colorectal Cancer Screening 2013 Cologuard 2018 Immunochemical Fecal Occult Blood 2018 Influenza Immunization (Seas on Ended) 2025 Respiratory Syncytial Virus (RSV) Immunization (Adult) (1 - 1-dose 75+ series) 2043 Meningococcal Immunization (ACWY) Aged Out No longer eligible based on patient's age to complete this topic Rotavirus Immunization Aged Out No lo nger eligible based on patient's age to complete this topic Procedures Procedure Name Priority Date/Time Associated Diagnosis Comments CBC WITH AUTO DIFF OH Routine 12/15/2024 1:18 PM CDT CMP (COMPREHENSIVE METABOLIC PANEL) Routine 12/15/2024 1:18 PM CDT Polycythemia vera (HCC) LACTATE DEHYDROGENASE (LD) Routine 12/15/2024 1:18 PM CDT Polycythemia vera (HCC) CBC WITH AUTO DIFF OH Routine 11/17/2024 1:45 PM CLOUD PHYSICIST CMP (COMPREHENSIVE METABOLIC PANEL) Routine 11/17/2024 1:45 PM CLOUD PHYSICIST Polycythemia vera (HCC) LACTATE DEHYDROGENASE (LD) Routine 11/17/2024 1:45 PM CLOUD PHYSICIST Polycythemia vera (HCC) CMP (COMPREHENSIVE METABOLIC PANEL) Routine 10/22/2024 1:41 PM CLOUD PHYSICIST Serum calcium elevated CBC WITH AUTO DIFF OH Routine 10/13/2024 2:41 PM CLOUD PHYSICIST CMP (COMPREHENSIVE METABOLIC PANEL) Routine 10/13/2024 2:41 PM CLOUD PHYSICIST Polycythemia vera (HCC) MALORIE-2 gene mutation Thrombocytosis LACTATE DEHYDROGENASE (LD) Routine 10/13/2024 2:41 PM CLOUD PHYSICIST Polycythemia vera (HCC) MALORIE-2 gene mutation Thrombocytosis from Last 3 Months Results * (ABNORMAL) CBC WITH AUTO DIFF OH (12/15/2024 1:18 PM CDT) Only the most recent of3 resultswithin the time period is included. [facility] WBC 9.6 4.0 - 10.0 10*3/uL [facility] HGB 13.9 11.2 - 15.7 g/dL [facility] HCT 44.4 34.1 - 44.9 % [facility] PLT 400(H) 163 - 369 10*3/uL [facility] MPV 10.6 9.4 - 12.4 fL [facility] RBC 4.99 3.93 - 5.22 10*6/uL [facility] MCV 89 79 - 95 fL [facility] MCH 27.9 25.6 - 32.2 pg [facility] MCHC 31.3(L) 32.2 - 36.5 g/dL [facility] RDW 16.6(H) 11.6 - 14.4 % [facility] Neutrophils % 65.4 36.0 - 66.0 % [facility] Lymphocytes % 23.3 19.0 - 40.0 % [facility] Monocytes % 5.9 4.1 - 12.1 % [facility] Eosinophils % 4.4(H) 0.0 - 3.5 % [facility] Basophils % 0.7 0.0 - 1.0 % [facility] Absolute Neutrophils 6.3 1.4 - 6.6 10*3/uL [facility] Absolute Lymphocytes 2.2 0.8 - 4.0 10*3/uL [facility] Absolute Monocytes 0.6 0.2 - 1.2 10*3/uL [facility] Absolute Eosinophils 0.4 0.0 - 0.4 10*3/uL [facility] Absolute Basophils 0.1 0.0 - 0.1 10*3/uL [facility] 12/15/2024 1:18 PM CDT us Charla Brothers MD LAB SEND OUTS Final Result [facility] EX[facility]NAL [facility] * LACTATE DEHYDROGENASE (LD) (12/15/2024 1:18 PM CDT) Only the most recent of3 resultswithin the time period is included. LDH 149 140 - 271 U/L [facility] Blood 12/15/2024 1:18 PM CDT Narrative [facility] - 12/15/2024 2:58 PM CDT Release to patient->Immediate us Charla Brothers MD CHEMISTRY ORDERABLES Final Resul t [facility] [place] [address], [place] [phone] * (ABNORMAL) CMP (COMPREHENSIVE METABOLIC PANEL) (12/15/2024 1:18 PM CDT) Only the most recent of4 resultswithin the time period is included. Glucose 141(H) 70 - 105 mg/dL [facility] Blood Urea Nitrogen 17 7 - 25 mg/dL [facility] Creatinine 1.1 0.6 - 1.2 mg/dL [facility] Sodium 139 136 - 145 mEq/L [facility] Potassium 3.8 3.5 - 5.1 mEq/L [facility] Chloride 105 98 - 107 mEq/L [facility] Bicarbonate 24 21 - 31 mEq/L [facility] Total Bilirubin 0.4 0.3 - 1.0 mg/dL [facility] Alk. Phosphatase 80 34 - 104 U/L [facility] Aspartate Aminotransferase 22 13 - 39 U/L [facility] Alanine Aminotransferase 21 7 - 52 U/L [facility] Total Protein 7.1 6.4 - 8.9 g/dL [facility] Albumin 4.1 3.5 - 5.7 g/dL [facility] Calcium 9.1 8.6 - 10.3 mg/dL [facility] Anion Gap 13.8 7.0 - 15.0 mEq/L [facility] Globulin 3.0 2.0 - 3.5 g/dL [facility] EGFR 59(L) >60 ml/min/1. 73m2 [facility] Comment: This eGFR is calculated using 2020 CKD-EPI Creatinine equation without race modifier based on the NKF-ASN task force recommendations Equation: jOHK=766*min(SCr/k,1)a*max(SCr/k,1)-1.200*0.9938Age*1.012 (if female), where SCr is serum creatinine, k is 0.7 for females and 0.9 for males, and a is -0.241 for females and -0.302 for males Blood 12/15/2024 1:[address] [facility] - 12/15/2024 2:58 PM CDT Release to patient->Immediate IS THE PATIENT REQUIRED TO BE FASTING FOR 8 HOURS?->No Charla Brothers MD CHEMISTRY ORDERABLES Final Resul t [facility] [place] [address], [place] [phone] from Last 3 Months Insurance MEDICAID [place] MEDICARE C [employer]ET[employer] Care Teams Oil Lease Buyer Relationship Specialty Start Date End Date Tal Rosario [address] [place] [address] PCP - General Family Medicine 11/13/22 Charla Brothers MD [address] [place] [address] Consulting Physician Oncology 03/26/24
--- OUTSIDE RECORDS SUMMARY | 2025-01-10 01:10 | XMS_ITS | Encounter Summary ---
Author Organization [facility] Health Address [address] [place] [address] Care Team Providers Care Cured Meat Packing Supervisor Name Role Phone Tal Rosario MD Primary Care Provider [phone] Tal Rosario MD Unavailable Encounter Details Date Type Department Care Team (Late st Contact Info) Description 03/06/2023 Telephone [facility] - Centralized Scheduling [address] [place] [phone] Torrey Borges MD [address] [place] [address] Social History Tobacco Use Types Packs/Day Years Used Date Smoking Tobacco: Never Assessed Comments Unknown Sex and Gender Information Value Date Recorded Sex Assigned at Not on file Legal Sex Female 6:26 AM ENGROSSER Gender Identity Not on file Sexual Orientation Not on file documented as of this encounter Miscellaneous Notes * Telephone Encounter - Guido Holder - 03/11/2023 4:06 PM CDT R/S BMP APPOINTMENT. Guido Holder Bench Lathe Operator III Pulmonary Critical Care & Sleep Disorders * Telephone Encounter - Chapis Godoy - 03/06/2023 9:54 AM CDT Has multiple tests scheduled on same day as bumped appt. Please contact the patient to reschedule. documented in this encounter Plan of Treatment Not on file documented as of this encounter Visit Diagnoses Not on filedocumented in this encounter Care Teams Cured Meat Packing Supervisor Relationship Specialty Start Date End Date Tal Rosario MD [address] [place] [address] PCP - General Family Medicine 02/26/23 Tal Rosario MD [address] [place] [address] Family Medicine 02/26/23 documented as of this encounter
--- OUTSIDE RECORDS SUMMARY | 2025-01-10 01:10 | XMS_ITS | Encounter Summary ---
Author Organization [facility] Health Address [address] [place] [address] Care Team Providers Care Global Account Executive Name Role Phone Tal Rosario MD Primary Care Provider [phone] Tal Rosario MD Unavailable Encounter Details Date Type Department Care Team (Late st Contact Info) Description 01/27/2024 Ophth Exam [facility] - Ophthalmology [address] [place] [phone] Gareth Nicholas MD [address] [facility] [address] Social History Tobacco Use Types Packs/Day Years Used Date Smoking Tobacco: Never Smokeless Tobacco: Never Alcohol Use Standard Drinks/Week Comments Not Currently 0 (1 standard drink = 0.6 oz pur e alcohol) Social Comments Unknown Sex and Gender Information Value Date Recorded Sex Assigned at Not on file Legal Sex Female 6:26 AM TOBACCO WEIGHER Gender Identity Not on file Sexual Orientation Not on file documented as of this encounter Plan of Treatment Not on file documented as of this encounter Visit Diagnoses Not on filedocumented in this encounter Care Teams Global Account Executive Relationship Specialty Start Date End Date Tal Rosario MD [address] [place] [address] PCP - General Family Medicine 02/26/23 Tal Rosario MD [address] [place] [address] Family Medicine 02/26/23 documented as of this encounter
--- OUTSIDE RECORDS SUMMARY | 2025-01-10 01:10 | XMS_ITS | Encounter Summary ---
Author Organization [facility] Health Address [address] [facility] [place] [address] Care Team Providers Care Bromination Equipment Operator Name Role Phone Tal Rosario MD Primary Care Provider [phone] Tal Rosario MD Unavailable Encounter Details Date Type Department Care Team (Late st Contact Info) Description 03/11/2023 Telephone [facility] - Centralized Scheduling [address] [place] [phone] Torrey Borges MD [address] [place] [address] Social History Tobacco Use Types Packs/Day Years Used Date Smoking Tobacco: Never Assessed Comments Unknown Sex and Gender Information Value Date Recorded Sex Assigned at Not on file Legal Sex Female 6:26 AM JANITOR CARETAKER Gender Identity Not on file Sexual Orientation Not on file documented as of this encounter Miscellaneous Notes * Telephone Encounter - Chapis Godoy - 03/11/2023 1:42 PM CDT Patient wants all 3 tests scheduled on same day as appointment w/ Dr. Borges. Please contact the patients to assist w/ rescheduling all appointments. documented in this encounter Plan of Treatment Not on file documented as of this encounter Visit Diagnoses Not on filedocumented in this encounter Care Teams Bromination Equipment Operator Relationship Specialty Start Date End Date Tal Rosario MD [address] [place] [address] PCP - General Family Medicine 02/26/23 Tal Rosario MD [address] [place] [address] Family Medicine 02/26/23 documented as of this encounter
--- OUTSIDE RECORDS SUMMARY | 2025-01-10 01:10 | XMS_ITS | Continuity of Care Document ---
Author Organization [facility] Address [address] [place] [address] Phone Care Team Providers Care Metal Or Wood Blocker Name Role Phone Alex Hernandez Unavailable Unavailable Advance Directives Directive Yes / No Effective Date File Name No Information Encounters Encounter Description Practice Location Reason(s) For Visit Diagnoses Date Provider Providers Copied on Encounter [facility], [address], [place], [place], [id number], tel:[phone] [facility] No Information David Johnson. [address] [place], [address], . tel:[phone] Referring Provider: Alex Mc, [address] [place], [place], [place]. tel:[phone] Family History Family Member Type Diagnosis Age At Onset No Information Payers Payer name Insurance type Covered republican ID Authoriza tion(s) Medicaid [facility] [id number] Social History Type Description Quantity Date Captured [...]
--- OUTSIDE RECORDS SUMMARY | 2025-01-10 01:10 | XMS_ITS | Continuity of Care Document ---
Author Organization [facility] Address [address] [place] [address] [place] [address] Phone Care Team Providers Care Strip Presser Name Role Phone Tal Rosario MD Unavailable Unavailable Allergies, Adverse Reactions, Alerts Substance Reaction Status Criticality penicillin G Active No Information Medications Medication Instructions Dosage Effective Dates (start - stop) Status Comments Ventolin HFA 90 mcg/actuation aerosol inhaler inhale 2 puff by inhalation route every 4 - 6 hours as needed as needed - Active PRN for sob spironolactone 50 mg tablet take 1 tablet by oral route every day 50 MG - Active Adderall 15 mg tablet take 1 tablet by oral route 2 times every day - Active hydrocodone 7.5 mg-acetaminophen 325 mg tablet take 1 tablet by oral route 3 times every day as needed for pain as needed 1 tablet - Active PRN for pain, avoid driving or operate machines, naloxone 0.4 mg/mL injection solution inject 0.4 milliliter by intravenous route over once, may repeat at 2 to 3 minute intervals as needed as needed 0.4 MG - Active PRN for OD Valium 10 mg tablet take 1 tablet by oral route 2 times every day as needed 10 MG - Active avoid driving or operate machines, PRN for anxiety cyclobenzaprine 10 mg tablet take 1 tablet by oral route 2 times every day as needed 10 MG - Active PRN for pain, avoid driving or operate machines Singulair 10 mg tablet take 1 tablet by oral route every day in the evening 10 MG - Active Procedures Procedure Date OFFICE/OUTPATIENT VISIT, EST OFFICE/OUTPATIENT VISIT, EST PREV VISIT, EST, AGE 40-64 OFFICE/OUTPATIENT VISIT, EST OFFICE/OUTPATIENT VISIT, EST OFFICE/OUTPATIENT VISIT, EST OFFICE/OUTPATIENT VISIT, EST OFFICE/OUTPATIENT VISIT, EST OFFICE/OUTPATIENT VISIT, EST OFFICE/OUTPATIENT VISIT, EST OFFICE/OUTPATIENT VISIT, EST OFFICE/OUTPATIENT VISIT, EST OFFICE/OUTPATIENT VISIT, EST OFFICE/OUTPATIENT VISIT, EST OFFICE/OUTPATIENT VISIT, EST OFFICE/OUTPATIENT VISIT, EST PREV VISIT, EST, AGE 40-64 OFFICE/OUTPATIENT VISIT, EST OFFICE/OUTPATIENT VISIT, EST OFFICE/OUTPATIENT VISIT, EST OFFICE/OUTPATIENT VISIT, EST OFFICE/OUTPATIENT VISIT, EST OFFICE/OUTPATIENT VISIT, EST OFFICE/OUTPATIENT VISIT, EST OFFICE/OUTPATIENT VISIT, EST OFFICE/OUTPATIENT VISIT, EST OFFICE/OUTPATIENT VISIT, EST OFFICE/OUTPATIENT VISIT, EST OFFICE/OUTPATIENT VISIT, EST OFFICE/OUTPATIENT VISIT, EST PREV VISIT, EST, AGE 40-64 OFFICE/OUTPATIENT VISIT, EST OFFICE/OUTPATIENT VISIT, EST OFFICE/OUTPATIENT VISIT, EST OFFICE/OUTPATIENT VISIT, EST OFFICE/OUTPATIENT VISIT, EST OFFICE/OUTPATIENT VISIT, EST OFFICE/OUTPATIENT VISIT, EST OFFICE/OUTPATIENT VISIT, EST OFFICE/OUTPATIENT VISIT, EST OFFICE/OUTPATIENT VISIT, EST OFFICE/OUTPATIENT VISIT, EST OFFICE/OUTPATIENT VISIT, EST OFFICE/OUTPATIENT VISIT, EST OFFICE/OUTPATIENT VISIT, EST PREV VISIT, EST, AGE 40-64 OFFICE/OUTPATIENT VISIT, EST OFFICE/OUTPATIENT VISIT, EST OFFICE/OUTPATIENT VISIT, EST OFFICE/OUTPATIENT VISIT, EST OFFICE/OUTPATIENT VISIT, EST OFFICE/OUTPATIENT VISIT, EST OFFICE/OUTPATIENT VISIT, EST OFFICE/OUTPATIENT VISIT, EST OFFICE/OUTPATIENT VISIT, EST OFFICE/OUTPATIENT VISIT, EST OFFICE/OUTPATIENT VISIT, EST OFFICE/OUTPATIENT VISIT, EST OFFICE/OUTPATIENT VISIT, EST OFFICE/OUTPATIENT VISIT, EST -2019 OFFICE/OUTPATIENT VISIT, EST OFFICE/OUTPATIENT VISIT, EST OFFICE/OUTPATIENT VISIT, EST -2019 PPPS, subseq visit OFFICE/OUTPATIENT VISIT, EST OFFICE/OUTPATIENT VISIT, EST OFFICE/OUTPATIENT VISIT, EST -2019 OFFICE/OUTPATIENT VISIT, EST -2019 OFFICE/OUTPATIENT VISIT, EST -2019 OFFICE/OUTPATIENT VISIT, EST -2019 OFFICE/OUTPATIENT VISIT, EST -2019 OFFICE/OUTPATIENT VISIT, EST OFFICE/OUTPATIENT VISIT, EST OFFICE/OUTPATIENT VISIT, EST OFFICE/OUTPATIENT VISIT, EST OFFICE/OUTPATIENT VISIT, EST OFFICE/OUTPATIENT VISIT, EST OFFICE/OUTPATIENT VISIT, EST OFFICE/OUTPATIENT VISIT, EST OFFICE/OUTPATIENT VISIT, EST OFFICE/OUTPATIENT VISIT, EST PPPS, subseq visit OFFICE/OUTPATIENT VISIT, EST OFFICE/OUTPATIENT VISIT, EST OFFICE/OUTPATIENT VISIT, EST OFFICE/OUTPATIENT VISIT, EST OFFICE/OUTPATIENT VISIT, EST OFFICE/OUTPATIENT VISIT, EST OFFICE/OUTPATIENT VISIT, EST OFFICE/OUTPATIENT VISIT, EST OFFICE/OUTPATIENT VISIT, EST OFFICE/OUTPATIENT VISIT, EST OFFICE/OUTPATIENT VISIT, EST OFFICE/OUTPATIENT VISIT, EST OFFICE/OUTPATIENT VISIT, EST PPPS, initial visit OFFICE/OUTPATIENT VISIT, EST OFFICE/OUTPATIENT VISIT, EST OFFICE/OUTPATIENT VISIT, EST OFFICE/OUTPATIENT VISIT, EST OFFICE/OUTPATIENT VISIT, EST OFFICE/OUTPATIENT VISIT, EST OFFICE/OUTPATIENT VISIT, EST OFFICE/OUTPATIENT VISIT, EST OFFICE/OUTPATIENT VISIT, EST OFFICE/OUTPATIENT VISIT, EST OFFICE/OUTPATIENT VISIT, EST OFFICE/OUTPATIENT VISIT, EST OFFICE/OUTPATIENT VISIT, EST OFFICE/OUTPATIENT VISIT, EST OFFICE/OUTPATIENT VISIT, EST OFFICE/OUTPATIENT VISIT, EST OFFICE/OUTPATIENT VISIT, EST OFFICE/OUTPATIENT VISIT, EST OFFICE/OUTPATIENT VISIT, EST -2015 OFFICE/OUTPATIENT VISIT, EST OFFICE/OUTPATIENT VISIT, EST OFFICE/OUTPATIENT VISIT, EST OFFICE/OUTPATIENT VISIT, EST OFFICE/OUTPATIENT VISIT, EST OFFICE/OUTPATIENT VISIT, EST OFFICE/OUTPATIENT VISIT, EST OFFICE/OUTPATIENT VISIT, EST OFFICE/OUTPATIENT VISIT, EST OFFICE/OUTPATIENT VISIT, EST OFFICE/OUTPATIENT VISIT, EST OFFICE/OUTPATIENT VISIT, EST OFFICE/OUTPATIENT VISIT, EST OFFICE/OUTPATIENT VISIT, EST OFFICE/OUTPATIENT VISIT, EST OFFICE/OUTPATIENT VISIT, EST OFFICE/OUTPATIENT VISIT, EST OFFICE/OUTPATIENT VISIT, EST OFFICE/OUTPATIENT VISIT, EST OFFICE/OUTPATIENT VISIT, EST OFFICE/OUTPATIENT VISIT, EST OFFICE/OUTPATIENT VISIT, EST OFFICE/OUTPATIENT VISIT, EST OFFICE/OUTPATIENT VISIT, EST OFFICE/OUTPATIENT VISIT, EST OFFICE/OUTPATIENT VISIT, EST OFFICE/OUTPATIENT VISIT, EST OFFICE/OUTPATIENT VISIT, EST OFFICE/OUTPATIENT VISIT, EST OFFICE/OUTPATIENT VISIT, EST OFFICE/OUTPATIENT VISIT, EST OFFICE/OUTPATIENT VISIT, EST OFFICE/OUTPATIENT VISIT, EST OFFICE/OUTPATIENT VISIT, EST OFFICE/OUTPATIENT VISIT, EST OFFICE/OUTPATIENT VISIT, EST OFFICE/OUTPATIENT VISIT, EST OFFICE/OUTPATIENT VISIT, EST OFFICE/OUTPATIENT VISIT, EST OFFICE/OUTPATIENT VISIT, EST OFFICE/OUTPATIENT VISIT, EST OFFICE/OUTPATIENT VISIT, EST OFFICE/OUTPATIENT VISIT, EST OFFICE/OUTPATIENT VISIT, EST OFFICE/OUTPATIENT VISIT, EST OFFICE/OUTPATIENT VISIT, EST OFFICE/OUTPATIENT VISIT, EST OFFICE/OUTPATIENT VISIT, EST OFFICE/OUTPATIENT VISIT, EST OFFICE/OUTPATIENT VISIT, EST OFFICE/OUTPATIENT VISIT, EST OFFICE/OUTPATIENT VISIT, EST OFFICE/OUTPATIENT VISIT, EST OFFICE/OUTPATIENT VISIT, EST Advance Directives Directive Yes / No Effective Date File Name No Information Encounters Encounter Description Practice Location Reason(s) For Visit Diagnoses Date Provider Providers Copied on Encounter OFFICE/OUTPA TIENT VISIT, [facility], [address] [place], [place] [address]alexandria [place], [address], tel:[phone] [facility] ADD (chief complaint)manuel n (chief complaint)AUSTIN D1 (chief complaint)hir ustism1 (chief complaint)ast hma1 (chief complaint) Chronic pain syndromeAttentio n deficitGERD w/o esophagitisMild intermittent asthma, uncomplicatedHir sutism 5 Abraham Parada. [address], [place], [place], [address] , [place]. [phone] OFFICE/OUTPA TIENT VISIT, EST [facility], [address], [place], [place], [address], [place] tel:[phone] [facility] ADD (chief complaint)manuel n (chief complaint)AUSTIN D1 (chief complaint)anx iety1 (chief complaint) Chronic pain syndromeAttentio n deficitGERD w/o esophagitisGener alized Anxiety DisorderEncounte r for other screening for malignant neoplasm of breast 5 Abraham Parada. [address], [address], [place], [place], [address] , [place]. [phone] PREV VISIT, EST, AGE 40-64 [facility], [address], [place], [place], [address], [place] tel:[phone] [facility] physical (chief complaint) Encounter for general adult medical examination without abnormal findings 5 Abraham Parada. [address], [place], [place], [address] , [place]. tel:[phone] OFFICE/OUTPA TIENT VISIT, EST [facility], [address], [place], [place], [address], [place] tel:[phone] [facility] ADD (chief complaint)manuel n (chief complaint)P vera1 (chief complaint)anx iety1 (chief complaint) Attention deficitChronic pain syndromePolycyth emia veraGeneralized Anxiety DisorderGERD w/o esophagitis 5 Abraham Parada. [address], [place], [place], [address] , [place]. tel:[phone] OFFICE/OUTPA TIENT VISIT, EST [facility], [address] [place], [address], [place] tel:[phone] [facility] ADD (chief complaint)manuel n (chief complaint)hir sutism1 (chief complaint) HirsutismChronic pain syndromeAttentio n deficitPolycythe jose vera 4 Abraham Parada. [address], [place], [place], [address] , [place]. tel:[phone] OFFICE/OUTPA TIENT VISIT, [facility], [address] [place], [address], [place] tel:[phone] [facility] ADD (chief complaint)manuel n (chief complaint)P vera1 (chief complaint) Attention deficitChronic pain syndromePolycyth emia veraThrombocytos is 4 Abraham Parada. [address], [place], [place], [address] , [place]. tel:[phone] OFFICE/OUTPA TIENT VISIT, EST [facility], [address] [place], [address], [place] tel:[phone] [facility] ADD (chief complaint)manuel n (chief complaint)too thache1 (chief complaint)P vera1 (chief complaint) Chronic pain syndromeAttentio n deficitAtypical facial painPolycythemia veraGeneralized Anxiety Disorder 4 Abraham Parada. [address] [place], [address] , [place]. tel:[phone] OFFICE/OUTPA TIENT VISIT, EST [facility], [address] [place], [address], [place] tel:[phone] [facility] ADD (chief complaint)manuel n (chief complaint) Attention deficitChronic pain syndromeEncounte r for screening for malignant neoplasm of colon 4 Abraham Parada. [address], [place], [place], [address] , [place]. tel:[phone] OFFICE/OUTPA TIENT VISIT, [facility], [address], [place], [place], [address], [place] tel:[phone] [facility] ADD (chief complaint)manuel n (chief complaint)kimmie ycythemia1 (chief complaint)anx iety1 (chief complaint) Attention deficitChronic pain syndromeHirsutis mSecondary polycythemiaGene ralized Anxiety Disorder 4 Abraham Parada. [address], [address], [place], [place], [address] , [place]. tel:[phone] OFFICE/OUTPA TIENT VISIT, [facility], [address], [place], [place], [address], [place] tel:[phone] [facility] ADD (chief complaint)manuel n (chief complaint) Attention deficitChronic pain syndrome 4 Abraham Parada. [address], [place], [place], [address] , [place]. tel:[phone] OFFICE/OUTPA TIENT VISIT, [facility], [address], [place], [place], [address], [place] tel:[phone] [facility] ADD (chief complaint)manuel n (chief complaint) Chronic pain syndromeAttentio n deficit 4 Abraham Parada. [address], [place], [place], [address] , [place]. tel:[phone] OFFICE/OUTPA TIENT VISIT, [facility], [address], [place], [place], [address], [place] tel:[phone] [facility] ADD (chief complaint)manuel n (chief complaint)ast hma1 (chief complaint)hir sutism1 (chief complaint) Attention deficitChronic pain syndromeHirsutis mMild intermittent asthma, uncomplicated 4 Abraham Parada. [address], [place], [place], [address] , [place]. tel:[phone] OFFICE/OUTPA TIENT VISIT, [facility], [address], [place], [place], [address], [place] tel:[phone] [facility] ADD (chief complaint)manuel n (chief complaint)ost eopenia1 (chief complaint) Attention deficitChronic pain syndromeOther specified disorder of bone densitySecondary polycythemia 4 Abraham Parada. [address] [facility] [address], [place], [place], [address] , [place]. tel:[phone] OFFICE/OUTPA TIENT VISIT, EST [facility], [address], [place], [place], [address], [place] tel:[phone] [facility] hypothyroidis m1 (chief complaint)ADD (chief complaint)manuel n (chief complaint)GI virus1 (chief complaint) Attention deficitChronic pain syndromeHypothyr oidismGastroente ritis 4 Abraham Parada. [address], [place], [place], [address] , [place]. tel:[phone] OFFICE/OUTPA TIENT VISIT, [facility], [address] [place], [address], [place] tel:[phone] [facility] ADD (chief complaint)manuel n (chief complaint)thy roid1 (chief complaint) Attention deficitChronic pain syndromeHypothyr oidismOth disrd of bone density and structure, unspecified siteEncounter for screening for malignant neoplasm of colon 4 Abraham Walsh [address], [place], [place], [address] , [place]. tel:[phone] OFFICE/OUTPA TIENT VISIT, EST [facility], [address] [place], [address], [place] tel:[phone] [facility] ADD (chief complaint)manuel n (chief complaint)anx iety1 (chief complaint)HLP (chief complaint)thy roid1 (chief complaint) Attention deficitChronic pain syndromeMixed hyperlipidemiaGe neralized Anxiety DisorderHypothyr oidism 4 Rosario Tal. [address], [place], [place], [address] , [place]. tel:[phone] PREV VISIT, EST, AGE 40-64 [facility], [address], [place], [place], [address], [place] tel:[phone] [facility] Medicine physical (chief complaint) Encounter for general adult medical exam w abnormal findingsAttentio n deficitHirsutism Chronic pain syndromePolycyth emia veraProteinuriaM ild intermittent asthma, uncomplicated Sep- 4 Rosario Tal. [address], [place], [place], [address] , [place]. tel:[phone] OFFICE/OUTPA TIENT VISIT, EST [facility], [address], [place], [place], [address], [place] tel:[phone] [facility] ADD (chief complaint)manuel n (chief complaint)hir sutism1 (chief complaint)fac ial flushing1 (chief complaint) Attention deficitChronic pain syndromeHirsutis mFlushing 3 Rosario Tal. [address], [place], [place], [address] , [place]. tel:[phone] OFFICE/OUTPA TIENT VISIT, EST [facility], [address], [place], [place], [address], [place] tel:[phone] [facility] ADD (chief complaint)ast hma1 (chief complaint)manuel n (chief complaint)vis ual1 (chief complaint) Mild intermittent asthma, uncomplicatedAtt ention deficitChronic pain syndromeOther visual disturbances Jul-3 0 3 Rosario Tal. [address], [place], [place], [address] , [place]. tel:[phone] OFFICE/OUTPA TIENT VISIT, EST [facility], [address], [place], [place], [address], [place] tel:[phone] [facility] ADD (chief complaint)manuel n (chief complaint)ast hma1 (chief complaint) Chronic pain syndromeAttentio n deficitMild intermittent asthma, uncomplicated 3 Abraham Parada. [address], [place], [place], [address] , [place]. tel:[phone] OFFICE/OUTPA TIENT VISIT, [facility], [address], [place], [place], [address], [place] tel:[phone] [facility] ADD (chief complaint)manuel n (chief complaint)ast hma1 (chief complaint) Attention deficitChronic pain syndromeMild intermittent asthma, uncomplicated 3 Abraham Parada. [address], [place], [place], [address] , [place]. tel:[phone] OFFICE/OUTPA TIENT VISIT, [facility], [address], [place], [place], [address], [place] tel:[phone] [facility] ADD (chief complaint)manuel n (chief complaint)brien ropathy1 (chief complaint) Attention deficitChronic pain syndromeIdiopath ic progressive neuropathySecond solis polycythemia 3 Abraham Parada. [address], [place], [place], [address] , [place]. tel:[phone] OFFICE/OUTPA TIENT VISIT, [facility], [address], [place], [place], [address], [place] tel:[phone] [facility] ADD (chief complaint)manuel n (chief complaint) Chronic pain syndromeAttentio n deficit 3 Abraham Parada. [address], [place], [place], [address] , [place]. tel:[phone] OFFICE/OUTPA TIENT VISIT, EST [facility], [address] [place], [address], [place] tel:[phone] [facility] ADD (chief complaint)manuel n (chief complaint)gra nuloma1 (chief complaint)P vera1 (chief complaint) Polycythemia veraAttention deficitChronic pain syndromeShortnes s of breath 3 Abraham Parada. [address], [place], [place], [address] , [place]. tel:[phone] OFFICE/OUTPA TIENT VISIT, [facility], [address], [place], [place], [address], [place] [phone] [facility] ADD (chief complaint)manuel n (chief complaint)maxi g nodule1 (chief complaint)fat igue1 (chief complaint) Attention deficitChronic pain syndromePolycyth emia veraSolitary lung nodule 3 Rosario Tal. [address], [place], [place], [address] , [place]. tel:[phone] OFFICE/OUTPA TIENT VISIT, [facility], [address], [place], [place], [address], [place] tel:[phone] [facility] ADD (chief complaint)manuel n (chief complaint)P vera1 (chief complaint)hir ustism1 (chief complaint) Polycythemia veraFibrosis of lungAttention deficitChronic pain syndromeHirsutis m 3 Rosario Tal. [address], [place], [place], [address] , [place]. [phone] OFFICE/OUTPA TIENT VISIT, [facility], [address], [place], [place], [address], [place] tel:[phone] [facility] ADD (chief complaint)manuel n (chief complaint)Kimmie ycythemia1 (chief complaint) Attention deficitChronic pain syndromeSecondar y polycythemiaFibr osis of lung 3 Rosario Tal. [address], [place], [place], [address] , [place]. tel:[phone] OFFICE/OUTPA TIENT VISIT, [facility], [address], [place], [place], [address], [place] tel:[phone] [facility] ADD (chief complaint)manuel n (chief complaint)kimmie ycythemia1 (chief complaint)manuel n (chief complaint)con stipation1 (chief complaint) Irritable bowel syndrome with constipationAtte ntion deficitChronic pain syndromeSecondar y polycythemiaMono neuropathy 3 Abraham Walsh [address], [place], [place], [address] , [place]. [phone] OFFICE/OUTPA TIENT VISIT, EST [facility], [address], [place], [place], [address], [place] tel:[phone] [facility] ADD (chief complaint)manuel n (chief complaint)con stipation1 (chief complaint) Attention deficitChronic pain syndromeIrritabl e bowel syndrome with constipationSeco ndary polycythemia 3 Abraham Walsh [address], [place], [place], [address] , [place]. tel:[phone] PREV VISIT, EST, AGE 40-64 [facility], [address], [place], [place], [address], [place] tel:[phone] [facility] physical (chief complaint) Encounter for general adult medical exam w abnormal findingsMixed hyperlipidemiaPr oteinuriaSeconda ry polycythemiaVisu al disturbanceAtten tion deficitChronic pain syndromeHirsutis m 3 Abraham Walsh [address], [place], [place], [address] , [place]. tel:[phone] OFFICE/OUTPA TIENT VISIT, EST [facility], [address] [place], [address], [place] tel:[phone] [facility] ADD (chief complaint)manuel n (chief complaint)hir sutism1 (chief complaint)orozco d pain1 (chief complaint) MononeuropathyHi rsutismChronic pain syndromeAttentio n deficit 3 Abraham Walsh [address], [place], [place], [address] , [place]. tel:[phone] OFFICE/OUTPA TIENT VISIT, EST [facility], [address] [place], [address], [place] tel:[phone] [facility] ADD (chief complaint)manuel n (chief complaint)orozco d swelling1 (chief complaint) Attention deficitChronic pain syndromeAbnormal weight gainLocalized swelling of left arm w/ lump 2 Abraham Parada. [address], [place], [place], [address] , [place]. tel:[phone] OFFICE/OUTPA TIENT VISIT, [facility], [address] [place], [address], [place] tel:[phone] [facility] pain (chief complaint)ADd (chief complaint)hir sutism1 (chief complaint) Attention deficitChronic pain syndromeHirsutis m 2 Abraham Parada. [address], [place], [place], [address] , [place]. tel:[phone] OFFICE/OUTPA TIENT VISIT, [facility], [address] [place], [address], [place] tel:[phone] [facility] pain (chief complaint)ADD (chief complaint)hir sutism1 (chief complaint) HirsutismChronic pain syndromeAttentio n deficitEncounter for other screening for malignant neoplasm of breast 2 Abraham Parada. [address], [place], [place], [address] , [place]. tel:[phone] OFFICE/OUTPA TIENT VISIT, [facility], [address] [place], [place], [address], [place] tel:[phone] [facility] pain (chief complaint)ADD (chief complaint) Chronic pain syndromeAttentio n deficit 2 Abraham Parada. [address], [place], [place], [address] , [place]. tel:[phone] OFFICE/OUTPA TIENT VISIT, [facility], [address] [place], [address], [place] tel:[phone] [facility] Medicine pain (chief complaint)ADD (chief complaint)alexander ght gain1 (chief complaint)HLP (chief complaint) Attention deficitChronic pain syndromeMixed hyperlipidemiaAb normal weight gain 2 Abraham Walsh [address], [place], [place], [address] , [place]. tel:[phone] OFFICE/OUTPA TIENT VISIT, [facility], [address], [place], [place], [address], [place] tel:[phone] [facility] pain (chief complaint)ADD (chief complaint)ast hma1 (chief complaint) Attention deficitChronic pain syndromeAllergic rhinitis due to pollenMild intermittent asthma, uncomplicated 2 Abraham Walsh [address], [place], [place], [address] , [place]. tel:[phone] OFFICE/OUTPA TIENT VISIT, [facility], [address], [place], [place], [address], [place] tel:[phone] [facility] pain (chief complaint)ADD (chief complaint) Chronic pain syndromeAttentio n deficit 2 Abraham Walsh [address], [place], [place], [address] , [place]. tel:[phone] OFFICE/OUTPA TIENT VISIT, [facility], [address], [place], [place], [address], [place] tel:[phone] [facility] pain (chief complaint)ADD (chief complaint) Attention deficitChronic pain syndrome 2 Abraham Walsh [address], [address], [place], [place], [address] , [place]. tel:[phone] OFFICE/OUTPA TIENT VISIT, [facility], [address], [place], [place], [address], [place] tel:[phone] [facility] Medicine sick (chief complaint)manuel n (chief complaint)ADD (chief complaint) Attention deficitChronic pain syndromeAcute bronchitisGenera lized Anxiety Disorder 2 Abraham Walsh [address], [address] [place], [address] , . tel:[phone] OFFICE/OUTPA TIENT VISIT, EST [facility], [address], [place], [address], tel:[phone] [facility] anxiety1 (chief complaint)manuel n (chief complaint)ADD (chief complaint) Attention deficitChronic pain syndromeGenerali zed Anxiety Disorder 2 Abraham Parada. [address], [address], [place], [place], [address] , [place]. tel:[phone] OFFICE/OUTPA TIENT VISIT, EST [facility], [address] [place], [place], [address], tel:[phone] [facility] anxiety1 (chief complaint)manuel n (chief complaint)ADD (chief complaint) Chronic pain syndromeAttentio n deficitNeuropath yAnxiolytic dependence 2 Abraham Parada. [address], [address], [place], [place], [address] , [place]. tel:[phone] OFFICE/OUTPA TIENT VISIT, EST [facility], [address], [place], [address], tel:[phone] [facility] pain (chief complaint)ADD (chief complaint)anx iety1 (chief complaint) Attention deficitChronic pain syndromeAnxiolyt ic dependenceNeurop athy 2 Abraham Parada. [address], [place], [place], [address] , [place]. tel:[phone] PREV VISIT, EST, AGE 40-64 [facility], [address] [place], [place], [address], tel:[phone] [facility] pain (chief complaint)ADD (chief complaint)anx iety1 (chief complaint) Encounter for general adult medical exam w abnormal findingsAttentio n deficitChronic pain syndromeAnxiolyt ic dependenceHyperl ipidemia 2 Abraham Parada. [address], [address], [place], [place], [address] , . tel:[phone] OFFICE/OUTPA TIENT VISIT, [facility], [address] [place], [place], [address], tel:[phone] [facility] pain (chief complaint)ADD (chief complaint)anx iety1 (chief complaint) Attention deficitChronic pain syndromeAnxiolyt ic dependence 1 Abraham Walsh [address] [place], [address] , [place]. tel:[phone] OFFICE/OUTPA TIENT VISIT, [facility], [address] [place], [place], [address], tel:[phone] [facility] pain (chief complaint)ADD (chief complaint)anx iety1 (chief complaint) Attention deficitChronic pain syndromeAnxiolyt ic dependence 1 Abraham Walsh [address] [place], [place], [address] , [place]. tel:[phone] OFFICE/OUTPA TIENT VISIT, [facility], [address], [place], [address], tel:[phone] [facility] pain (chief complaint)ADD (chief complaint)anx iety1 (chief complaint) Chronic pain syndromeAttentio n deficitAnxiolyti c dependenceEncoun ter for other screening for malignant neoplasm of breast 1 Abraham Walsh [address] [place], [address] , [place]. [phone] OFFICE/OUTPA TIENT VISIT, [facility], [address], [place], [address], tel:[phone] [facility] pain (chief complaint)ADD (chief complaint)anx iety1 (chief complaint)sin us1 (chief complaint) Anxiolytic dependenceChroni c pain syndromeAttentio n deficitAcute sinusitis 1 Abraham Walsh [address] [place], [place], [address] , [place]. tel:[phone] OFFICE/OUTPA TIENT VISIT, EST [facility], [address] [place], [address], [place] tel:[phone] [facility] ADD (chief complaint)manuel n (chief complaint)anx iety1 (chief complaint)HLP (chief complaint)dexter norrhea1 (chief complaint) HyperlipidemiaAm enorrheaAttentio n deficitAnxiolyti c dependenceChroni c pain syndrome 1 Rosario Tal. [address], [address], [place], [place], [address] , [place]. tel:[phone] OFFICE/OUTPA TIENT VISIT, [facility], [address] [place], [place], [address], [place] tel:[phone] [facility] ADD (chief complaint)manuel n (chief complaint)anx iety1 (chief complaint)ear pain1 (chief complaint)itc hing1 (chief complaint) Attention deficitChronic pain syndromeAnxiolyt ic dependenceDiffus e otitis externa, right earItch 1 Rosario Tal. [address], [address], [place], [place], [address] , [place]. tel:[phone] OFFICE/OUTPA TIENT VISIT, [facility], [address] [place], [place], [address], [place] tel:[phone] [facility] ADD (chief complaint)manuel n (chief complaint)anx iety1 (chief complaint) Anxiolytic dependenceAttent ion deficitChronic pain syndrome 1 Rosario Tal. [address], [address], [place], [place], [address] , [place]. tel:[phone] OFFICE/OUTPA TIENT VISIT, [facility], [address] [place], [address], [place] tel:[phone] [facility] ADD (chief complaint)manuel n (chief complaint)anx iety1 (chief complaint) Chronic pain syndromeAnxiolyt ic dependenceAttent ion deficitAbnormal weight gain 1 Abraham Parada. [address], [address], [place], [place], [address] , [place]. tel:[phone] OFFICE/OUTPA TIENT VISIT, [facility], [address], [place], [place], [address], [place] tel:[phone] [facility] ADD (chief complaint)manuel n (chief complaint)anx iety1 (chief complaint) Chronic pain syndromeAnxiolyt ic dependenceAttent ion deficit Dec- 1 Abraham Parada. [address], [address], [place], [place], [address] , [place]. tel:[phone] OFFICE/OUTPA TIENT VISIT, [facility], [address], [place], [place], [address], [place] tel:[phone] [facility] ADD (chief complaint)manuel n (chief complaint)anx iety1 (chief complaint)ast hma1 (chief complaint) Chronic pain syndromeAnxiolyt ic dependenceFatigu eAsthma 1 Abraham Parada. [address], [address], [place], [place], [address] , [place]. tel:[phone] OFFICE/OUTPA TIENT VISIT, [facility], [address], [place], [place], [address], [place] tel:[phone] [facility] ADD (chief complaint)manuel n (chief complaint)anx iety1 (chief complaint) Chronic pain syndromeFatigueA nxiolytic dependence 1 Abraham Parada. [address], [address], [place], [place], [address] , [place]. tel:[phone] OFFICE/OUTPA TIENT VISIT, [facility], [address] [place], [place], [address], [place] tel:[phone] [facility] ADD (chief complaint)manuel n (chief complaint)anx ity1 (chief complaint)ear pain1 (chief complaint) Chronic pain syndromeAnxiolyt ic dependenceFatigu eOtalgia, right ear 1 Abraham Parada. [address], [address], [place], [place], [address] , [place]. tel:[phone] OFFICE/OUTPA TIENT VISIT, [facility], [address], [place], [place], [address], [place] tel:[phone] [facility] ADD (chief complaint)manuel n (chief complaint)anx iety1 (chief complaint)HLP (chief complaint)irr egular period1 (chief complaint) Chronic pain syndromeAnxiolyt ic dependenceFatigu eHyperlipidemiaA menorrhea - 0 Abraham Parada. [address], [place], [place], [address] , [place]. [phone] OFFICE/OUTPA TIENT VISIT, [facility], [address] [place], [place], [address], [place] tel:[phone] [facility] pain (chief complaint)anx iety1 (chief complaint)ADD (chief complaint)abd pain1 (chief complaint) Abdominal painChronic pain syndromeFatigueA nxiolytic dependence 0 Abraham Parada. [address], [place], [place], [address] , [place]. [phone] OFFICE/OUTPA TIENT VISIT, [facility], [address] [place], [place], [address], [place] tel:[phone] [facility] pain (chief complaint)anx iety1 (chief complaint)ADD (chief complaint)sob (chief complaint) Chronic pain syndromeFatigueA nxiolytic dependenceAsthma Encounter for other screening for malignant neoplasm of breast 0 Abraham Parada. [address], [address], [place], [place], [address] , [place]. tel:[phone] OFFICE/OUTPA TIENT VISIT, [facility], [address] [place], [place], [address], [place] tel:[phone] [facility] pain (chief complaint)anx iety1 (chief complaint)ADD (chief complaint)HLP (chief complaint)hem orrhoid1 (chief complaint) Chronic pain syndromeFatigueA nxiolytic dependenceHyperl ipidemiaHemorrho idAllergic rhinitis 0 Abraham Walsh [address] [facility] [address] [place], [place], [address] , [place]. [phone] OFFICE/OUTPA TIENT VISIT, [facility], [address] [place], [address], [place] [phone] [facility] physical (chief complaint) Encounter for general adult medical exam w abnormal findingsFatigueH yperlipidemiaAll ergic rhinitisChronic pain syndromeAnxiolyt ic dependence 0 Abraham Walsh [address] [facility] [place], [address] , [place]. [phone] OFFICE/OUTPA TIENT VISIT, [facility], [address] [place], [place], [address], [place] tel:[phone] [facility] pain (chief complaint)anx iety1 (chief complaint)ADD (chief complaint) FatigueChronic pain syndromeAnxiolyt ic dependence 0 Abraham Walsh [address] [facility] [place], [address] , [place]. [phone] OFFICE/OUTPA TIENT VISIT, [facility], [address] [place], [place], [address], [place] tel:[phone] [facility] pain1 (chief complaint)anx iety1 (chief complaint)ADD (chief complaint) Chronic pain syndromeFatigueA nxiolytic dependence 0 Abraham Walsh [address] [place], [place], [address] , [place]. tel:[phone] OFFICE/OUTPA TIENT VISIT, [facility], [address] [place], [address], [place] tel:[phone] [facility] pain (chief complaint)anx iety1 (chief complaint)fat igue1 (chief complaint)ast hma1 (chief complaint) FatigueAsthmaChr onic pain syndromeAnxiolyt ic dependence 0 Abraham Parada. [address] [place], [place], [address] , [place]. tel:[phone] OFFICE/OUTPA TIENT VISIT, [facility], [address] [place], [place], [address], tel:[phone] [facility] pain (chief complaint)anx iety1 (chief complaint)fat igue1 (chief complaint)HLP (chief complaint) Chronic pain syndromeAnxiolyt ic dependenceHyperl ipidemiaFatigue 0 Abraham Walsh [address] [place], [place], [address] , [place]. tel:[phone] OFFICE/OUTPA TIENT VISIT, [facility], [address] [place], [place], [address], [place] tel:[phone] [facility] pain (chief complaint)anx iety1 (chief complaint)ADD (chief complaint) FatigueAnxiolyti c dependenceChroni c pain syndrome 0 Abraham Walsh [address] [place], [place], [address] , [place]. tel:[phone] OFFICE/OUTPA TIENT VISIT, [facility], [address] [place], [place], [address], [place] tel:[phone] [facility] pain (chief complaint)anx iety1 (chief complaint)fat igue (chief complaint) FatigueChronic pain syndromeAnxiolyt ic dependence 0 Abraham Parada. [address] [place], [place], [address] , [place]. tel:[phone] OFFICE/OUTPA TIENT VISIT, [facility], [address] [place], [place], [address], tel:[phone] [facility] pain (chief complaint)anx iety1 (chief complaint)fat igue1 (chief complaint) Chronic pain syndromeFatigueA nxiolytic dependence 3 0 Abraham Parada. [address], [address], [place], [place], [address] , [place]. tel:[phone] OFFICE/OUTPA TIENT VISIT, [facility], [address], [place], [place], [address], [place] tel:[phone] [facility] chronic pain (chief complaint)anx iety1 (chief complaint)ADD (chief complaint) Chronic pain syndromeFatigueA nxiolytic dependence 0 - 0 Abraham Parada. [address], [address], [place], [place], [address] , [place]. tel:[phone] OFFICE/OUTPA TIENT VISIT, [facility], [address] [place], [place], [address], [place] tel:[phone] [facility] anxiety1 (chief complaint)manuel n1 (chief complaint)fat igue1 (chief complaint) Essential (primary) hypertensionFati gueAnxiolytic dependenceGlauco maChronic pain syndrome 0 9 Abraham Parada. [address], [facility] A, [place], [place], [address] , [place]. tel:[phone] Referring Provider: Isma Adan [place], [place], [address]. tel:[phone] OFFICE/OUTPA TIENT VISIT, [facility], [address] [place], [place], [address], [place] tel:[phone] [facility] anxiety1 (chief complaint)chr onic pain1 (chief complaint)ADD (chief complaint)ast hma1 (chief complaint)HTN (chief complaint) AsthmaChronic pain syndromeAttentio n deficitEssential (primary) hypertensionAnxi olytic dependenceGlauco ma 0 6 9 Abraham Walsh [address], [address], [place], [place], [address] , [place]. tel:[phone] Referring Provider: Isma Adan [address], [place], [place], [address]. tel:[phone] OFFICE/OUTPA TIENT VISIT, [facility], [address], [place], [place], [address], [place] tel:[phone] [facility] chronic pain1 (chief complaint)anx iety1 (chief complaint)ADD (chief complaint)ast hma1 (chief complaint) AsthmaChronic pain syndromeAnxiolyt ic dependenceFatigu e 9 Abraham Parada. [address], [address], [place], [place], [address] , [place]. [phone] Referring Provider: Isma Adan, [place], [place], [address]. tel:[phone] OFFICE/OUTPA TIENT VISIT, [facility], [address], [place], [place], [address], [place] tel:[phone] [facility] chronic pain1 (chief complaint)ADD (chief complaint)anx iety1 (chief complaint) Attention deficitChronic pain syndromeAnxiolyt ic dependence May-0 6 9 Abraham Parada. [address], [place], [place], [address] , [place]. [phone] OFFICE/OUTPA TIENT VISIT, [facility], [address] [place], [place], [address], [place] tel:[phone] [facility] chronic pain1 (chief complaint)ADD (chief complaint)anx iety1 (chief complaint)fat igue1 (chief complaint)all ergy1 (chief complaint) FatigueChronic pain syndromeAnxiolyt ic dependenceAllerg ic rhinitis Apr-0 9 Abraham Parada. [address], [place], [place], [address] , [place]. tel:[phone] Referring Provider: Isma Adan, [place], [place], [address]. tel:[phone] OFFICE/OUTPA TIENT VISIT, [facility], [address], [place], [place], [address], [place] tel:[phone] [facility] cough1 (chief complaint)kathryn k pain1 (chief complaint)anx iety1 (chief complaint)ADD 1 (chief complaint) Acute bronchitisChroni c pain syndromeAnxiolyt ic dependenceAttent ion deficit 9 Abraham Parada. [address], [place], [place], [address] , [place]. tel:[phone] Referring Provider: Isma Adan [address], [place], [place], [address]. tel:[phone] OFFICE/OUTPA TIENT VISIT, [facility], [address] [place], [place], [address], [place] tel:[phone] [facility] fatigue1 (chief complaint)manuel n1 (chief complaint)ADD (chief complaint)hem orrhoid1 (chief complaint)sob 1 (chief complaint) FatigueAsthmaChr onic pain syndromeAnxiolyt ic dependenceEncoun ter for other screening for malignant neoplasm of breast 9 Abraham Parada. [address], [address], [place], [place], [address] , [place]. tel:[phone] Referring Provider: Isma Adan [facility] [address], [place], [place], [address]. tel:[phone] OFFICE/OUTPA TIENT VISIT, [facility], [address] [place], [address], [place] tel:[phone] [facility] HTN (chief complaint)anx iety1 (chief complaint)kathryn k pain1 (chief complaint)fat igue1 (chief complaint) Essential (primary) hypertensionAbno rmal weight gainChronic pain syndromeAnxiolyt ic dependenceFatigu e 9 Abraham Parada. [address], [place], [place], [address] , [place]. tel:[phone] Referring Provider: Isma Adan [address], [place], [place], [address]. tel:[phone] OFFICE/OUTPA TIENT VISIT, [facility], [address], [place], [place], [address], [place] tel:[phone] [facility] PHysical (chief complaint) Encounter for general adult medical exam w abnormal findingsHyperlip idemiaEssential (primary) hypertensionChro joseph pain syndromeAnxiolyt ic dependence Apr- 0-201 9 Abraham Parada. [address], [place], [place], [address] , [place]. tel:[phone] Referring Provider: Isma Adan [address], [place], [place], [address]. tel:[phone] OFFICE/OUTPA TIENT VISIT, [facility], [address], [place], [place], [address], [place] tel:[phone] [facility] HLP (chief complaint)chr onic pain1 (chief complaint)anx iety1 (chief complaint)ADD (chief complaint) HyperlipidemiaCh ronic pain syndromeAbnormal weight gainAnxiolytic dependenceAttent ion deficit Nov- 4 9 Abraham Parada. [address], [address], [place], [place], [address] , [place]. tel:[phone] Referring Provider: Isma Adan [address], [place], [place], [address]. tel:[phone] OFFICE/OUTPA TIENT VISIT, [facility], [address], [place], [place], [address], [place] tel:[phone] [facility] chronic pain (chief complaint)ADD (chief complaint)anx iety1 (chief complaint)alexander ght gain1 (chief complaint) Abnormal weight gainChronic pain syndromeAttentio n deficitAnxiolyti c dependence 9 Abraham Parada. [address], [place], [place], [address] , [place]. tel:[phone] Referring Provider: Isma Adan [address], [place], [place], [address]. tel:[phone] OFFICE/OUTPA TIENT VISIT, [facility], [address], [place], [place], [address], [place] tel:[phone] [facility] chronic pain1 (chief complaint)ADD (chief complaint)anx iety1 (chief complaint)HTN (chief complaint) Essential (primary) hypertensionChro joseph pain syndromeAnxiolyt ic dependenceAttent ion deficit 9 Abraham Parada. [address], [place], [place], [address] , [place]. tel:[phone] Referring Provider: Tal Rosario, [address], [place], [place], [address]. tel:[phone] OFFICE/OUTPA TIENT VISIT, [facility], [address], [place], [place], [address], [place] tel:[phone] [facility] chronic pain1 (chief complaint)anx iety1 (chief complaint)ADD (chief complaint)HTN (chief complaint) Essential (primary) hypertensionChro joseph pain syndromeAnxiolyt ic dependence 8 Abraham Parada. [address], [place], [place], [address] , [place]. [phone] Referring Provider: Isma Adan [facility] [address], [place], [place], [address]. tel:[phone] OFFICE/OUTPA TIENT VISIT, [facility], [address], [place], [place], [address], [place] tel:[phone] [facility] asthma1 (chief complaint)kathryn k pain1 (chief complaint)ADD (chief complaint)anx iety1 (chief complaint)dys phagia1 (chief complaint) AsthmaDysphagiaA nxiolytic dependenceChroni c pain syndromeEssentia l (primary) hypertension 8 Abraham Parada. [address], [place], [place], [address] , [place]. tel:[phone] Referring Provider: Isma Adan [address], [place], [place], [address]. tel:[phone] OFFICE/OUTPA TIENT VISIT, [facility], [address], [place], [place], [address], [place] tel:[phone] [facility] chronic pain (chief complaint)ins omnia1 (chief complaint)ADD (chief complaint)dys hpagia1 (chief complaint)MTH FR (chief complaint) DysphagiaMethyle netetrahydrofola te reductase deficiencyAttent ion deficitChronic pain syndromeInsomnia Asthma 8 Abraham Walsh [address], [address], [place], [place], [address] , [place]. tel:[phone] Referring Provider: Isma Adan [facility], [place], [place], [address]. tel:[phone] OFFICE/OUTPA TIENT VISIT, [facility], [address], [place], [place], [address], [place] tel:[phone] [facility] chronic pain1 (chief complaint)anx iety1 (chief complaint)ADD (chief complaint)AUSTIN D1 (chief complaint) Chronic pain syndromeAnxiolyt ic dependenceAttent ion and concentration deficitDysphagia 8 Abraham Walsh [address], [address], [place], [place], [address] , [place]. tel:[phone] Referring Provider: Isma Adan [facility] A, [place], [place], [address]. tel:[phone] OFFICE/OUTPA TIENT VISIT, [facility], [address] [place], [place], [address], [place] [phone] [facility] chronci pain1 (chief complaint)anx iety1 (chief complaint)ADD (chief complaint)MTH FR (chief complaint) Body mass index (BMI) 36.0-36.9, adultChronic pain syndromeAnxiolyt ic dependenceMethyl enetetrahydrofol ate reductase deficiency 8 Abraham Walsh [address], [address], [place], [place], [address] , [place]. tel:[phone] Referring Provider: Isma Adan [address], [place], [place], [address]. tel:[phone] OFFICE/OUTPA TIENT VISIT, [facility], [address], [place], [place], [address], [place] tel:[phone] [facility] asthma1 (chief complaint)chr onic pain1 (chief complaint)anx iety1 (chief complaint)ADD (chief complaint) AsthmaChronic pain syndromeAllergic rhinitisAnxiolyt ic dependence 8 Abraham Parada. [address], [address], [place], [place], [address] , [place]. tel:[phone] OFFICE/OUTPA TIENT VISIT, [facility], [address], [place], [place], [address], [place] tel:[phone] [facility] chronic pain1 (chief complaint)anx iety1 (chief complaint)ADD (chief complaint)sin us allergy1 (chief complaint) Body mass index (BMI) 36.0-36.9, adultChronic pain syndromeAnxiolyt ic dependenceAllerg ic rhinitis 8 Abraham Parada. [address], [place], [place], [address] , [place]. tel:[phone] Referring Provider: Isma Adan [facility] [address], [place], [place], [address]. tel:[phone] OFFICE/OUTPA TIENT VISIT, [facility], [address], [place], [place], [address], [place] tel:[phone] [facility] chronic pain (chief complaint)anx iety1 (chief complaint)ADD (chief complaint)alexander ght gain1 (chief complaint) Body mass index (BMI) 36.0-36.9, adultAbnormal weight gainChronic pain syndromeAnxiolyt ic dependence 8 Abraham Parada. [address], [place], [place], [address] , [place]. tel:[phone] Referring Provider: Isma Adan [facility] [address], [place], [place], [address]. tel:[phone] OFFICE/OUTPA TIENT VISIT, [facility], [address], [place], [place], [address], [place] tel:[phone] [facility] back pain1 (chief complaint)ins omnia1 (chief complaint)ADD (chief complaint) Chronic pain syndromeInsomnia 8 Abraham Parada. [address], [place], [place], [address] , [place]. tel:[phone] Referring Provider: Isma Adan [address], [place], [place], [address]. tel:[phone] OFFICE/OUTPA TIENT VISIT, [facility], [address], [place], [place], [address], [place] tel:[phone] [facility] back pain1 (chief complaint)ins omnia1 (chief complaint)ADD (chief complaint)can nabis (chief complaint) Abnormal weight gainChronic pain syndromeEncounte r for general adult medical exam w abnormal findingsEncntr for general adult medical exam w/o abnormal findings 8 Abraham Parada. [address], [place], [place], [address] , [place]. tel:[phone] Referring Provider: Isma Adan [address], [place], [place], [address]. tel:[phone] OFFICE/OUTPA TIENT VISIT, [facility], [address], [place], [place], [address], [place] tel:[phone] [facility] lumbago1 (chief complaint)ADD (chief complaint)anx iety1 (chief complaint) Chronic pain syndromeBody mass index (BMI) 35.0-35.9, adult 8 Abraham Parada. [address], [place], [place], [address] , [place]. tel:[phone] Referring Provider: Isma Adan [address], [place], [place], [address]. tel:[phone] OFFICE/OUTPA TIENT VISIT, [facility], [address], [place], [place], [address], [place] [phone] [facility] back pain1 (chief complaint)ADD 1 (chief complaint)anx iety1 (chief complaint)fin austin pain1 (chief complaint) Chronic pain syndromePain in left finger(s)Anxioly tic dependence 8 Abraham Parada. [address], [place], [place], [address] , [place]. tel:[phone] Referring Provider: Isma Adan [facility], [place], [place], [address]. tel:[phone] OFFICE/OUTPA TIENT VISIT, [facility], [address], [place], [place], [address], [place] tel:[phone] [facility] anxiety1 (chief complaint)kathryn k pain1 (chief complaint)ADD (chief complaint)obe sity1 (chief complaint)All ergy (chief complaint) Anxiolytic dependenceChroni c pain syndromeBody mass index (BMI) 35.0-35.9, adultAllergic rhinitis 7 Abraham Parada. [address], [place], [place], [address] , [place]. tel:[phone] Referring Provider: Isma Adan [facility] A, [place], [place], [address]. tel:[phone] OFFICE/OUTPA TIENT VISIT, [facility], [address] [place], [address], [place] tel:[phone] [facility] back pain1 (chief complaint)anx iety1 (chief complaint)ADD (chief complaint) Chronic pain syndromeAnxiolyt ic dependence 7 Abraham Parada. [address], [place], [place], [address] , [place]. [phone] Referring Provider: Isma Adan [address], [place], [place], [address]. tel:[phone] OFFICE/OUTPA TIENT VISIT, [facility], [address], [place], [place], [address], [place] tel:[phone] [facility] allergy1 (chief complaint)kathryn k pain1 (chief complaint)ADD (chief complaint)col on CA (chief complaint) InsomniaAllergic rhinitisChronic pain syndromeFamily history of malignant neoplasm of digestive organs 7 Abraham Parada. [address], [place], [place], [address] , [place]. tel:[phone] Referring Provider: Isma Adan [address], [place], [place], [address]. tel:[phone] OFFICE/OUTPA TIENT VISIT, [facility], [address], [place], [place], [address], [place] tel:[phone] [facility] HTN (chief complaint)kathryn k pain1 (chief complaint)ADD (chief complaint)anx iety1 (chief complaint)all ergy1 (chief complaint) Allergic rhinitisEssentia l (primary) hypertensionChro joseph pain syndromeInsomnia 7 Abraham Parada. [address], [place], [place], [address] , [place]. tel:[phone] Referring Provider: Isma Adan [address], [place], [place], [address]. tel:[phone] OFFICE/OUTPA TIENT VISIT, [facility], [address], [place], [place], [address], [place] tel:[phone] [facility] ADD (chief complaint)kathryn k pain1 (chief complaint)ins omnia1 (chief complaint) InsomniaChronic pain syndrome 7 Abraham Parada. [address], [place], [place], [address] , [place]. tel:[phone] Referring Provider: Isma Adan [address], [place], [place], [address]. tel:[phone] OFFICE/OUTPA TIENT VISIT, [facility], [address], [place], [place], [address], [place] tel:[phone] [facility] Medicine Allergy1 (chief complaint)ins omnia1 (chief complaint)kathryn k pain1 (chief complaint)ADD (chief complaint) Allergic rhinitisChronic pain syndromeInsomnia 7 Abraham Parada. [address], [place], [place], [address] , [place]. tel:[phone] Referring Provider: Isma Adan [address], [place], [place], [address]. tel:[phone] OFFICE/OUTPA TIENT VISIT, [facility], [address], [place], [place], [address], [place] tel:[phone] [facility] back pain1 (chief complaint)ins omnia1 (chief complaint)ADD 1 (chief complaint)all ergy1 (chief complaint) Chronic pain syndromeInsomnia Allergic rhinitisOtitis media, unspecified, right ear Abraham Parada. [address], [place], [place], [address] , [place]. tel:[phone] Referring Provider: Isma Adan [address], [place], [place], [address]. tel:[phone] OFFICE/OUTPA TIENT VISIT, [facility], [address], [place], [place], [address], [place] tel:[phone] [facility] back pain1 (chief complaint)ins omnia1 (chief complaint)ADD 1 (chief complaint)HTN (chief complaint) Chronic pain syndromeEssentia l (primary) hypertensionAnxi olytic dependence 7 Abraham Walsh [address], [place], [place], [address] , [place]. tel:[phone] Referring Provider: Isma Adan [address], [place], [place], [address]. tel:[phone] OFFICE/OUTPA TIENT VISIT, [facility], [address], [place], [place], [address], [place] tel:[phone] [facility] Medicine ADD (chief complaint)kathryn k pain1 (chief complaint)anx iety1 (chief complaint) Chronic pain syndromeAnxiolyt ic dependence Dec- 7 Abraham Parada. [address], [place], [place], [address] , [place]. tel:[phone] Referring Provider: Isma Adan [address], [place], [place], [address]. tel:[phone] OFFICE/OUTPA TIENT VISIT, [facility], [address], [place], [place], [address], [place] tel:[phone] [facility] pain1 (chief complaint)ADD (chief complaint)anx iety1 (chief complaint) Chronic pain syndromeAnxiolyt ic dependence Nov- 7 Abraham Parada. [address], [place], [place], [address] , [place]. tel:[phone] Referring Provider: Isma Adan [address], [place], [place], [address]. tel:[phone] OFFICE/OUTPA TIENT VISIT, [facility], [address], [place], [place], [address], [place] tel:[phone] [facility] back pain1 (chief complaint)anx iety1 (chief complaint)ADD 1 (chief complaint) Chronic pain syndromeAnxiolyt ic dependence Oct- 7 Abraham Parada. [address], [place], [place], [address] , [place]. tel:[phone] Referring Provider: Isma Adan [address], [place], [place], [address]. tel:[phone] OFFICE/OUTPA TIENT VISIT, [facility], [address], [place], [place], [address], [place] tel:[phone] [facility] HTN (chief complaint)kathryn k pain1 (chief complaint)Anx iety1 (chief complaint)ADD 1 (chief complaint) Essential (primary) hypertensionChro joseph pain syndromeAnxiolyt ic dependenceEncoun ter for other screening for malignant neoplasm of breast 7 Abraham Parada. [address], [place], [place], [address] , [place]. tel:[phone] Referring Provider: Isma Adan [address], [place], [place], [address]. tel:[phone] OFFICE/OUTPA TIENT VISIT, [facility], [address], [place], [place], [address], [place] tel:[phone] [facility] HTN (chief complaint)kathryn k pain1 (chief complaint)ADD (chief complaint)anx iety1 (chief complaint) Chronic pain syndromeInsomnia Essential (primary) hypertension 6 Abraham Walsh [address], [place], [place], [address] , [place]. tel:[phone] Referring Provider: Isma Adan [facility], [place], [place], [address]. tel:[phone] OFFICE/OUTPA TIENT VISIT, [facility], [address], [place], [place], [address], [place] tel:[phone] [facility] HTN (chief complaint)kathryn k pain1 (chief complaint)ADD (chief complaint)anx etiy1 (chief complaint) Essential (primary) hypertensionChro joseph pain syndromeAnxiolyt ic dependenceInsomn ia 6 Abraham Walsh [address], [place], [place], [address] , [place]. tel:[phone] Referring Provider: Isma Adan [address], [place], [place], [address]. tel:[phone] OFFICE/OUTPA TIENT VISIT, [facility], [address] [place], [address], [place] tel:[phone] [facility] back apin1 (chief complaint)ADD (chief complaint)anx iety1 (chief complaint) Chronic pain syndromeAnxiolyt ic dependence 0 6 Abraham Walsh [address], [place], [place], [address] , [place]. tel:[phone] Referring Provider: Isma Adan [address], [place], [place], [address]. tel:[phone] OFFICE/OUTPA TIENT VISIT, [facility], [address], [place], [place], [address], [place] tel:[phone] [facility] LBP (chief complaint)anx iety1 (chief complaint)ADD (chief complaint)hem aturia1 (chief complaint) Chronic pain syndromeAnxiolyt ic dependenceHematu nora 6 Abraham Parada. [address], [place], [place], [address] , [place]. tel:[phone] Referring Provider: Isma Adan [address], [place], [place], [address]. tel:[phone] OFFICE/OUTPA TIENT VISIT, [facility], [address], [place], [place], [address], [place] tel:[phone] [facility] hematuria1 (chief complaint)LBP (chief complaint)anx iety1 (chief complaint)HTN (chief complaint) Essential (primary) hypertensionLow back painAnxiolytic dependenceHematu nora 6 Abraham Parada. [address], [place], [place], [address] , [place]. tel:[phone] Referring Provider: Isma Adan [address], [place], [place], [address]. tel:[phone] OFFICE/OUTPA TIENT VISIT, [facility], [address], [place], [place], [address], [place] tel:[phone] [facility] anxiety1 (chief complaint)kathryn k pain1 (chief complaint)ADD (chief complaint) Chronic pain syndromeAnxiolyt ic dependence 6 Abraham Parada. [address], [place], [place], [address] , [place]. tel:[phone] Referring Provider: Isma Adan [address], [place], [place], [address]. tel:[phone] OFFICE/OUTPA TIENT VISIT, [facility], [address], [place], [place], [address], [place] tel:[phone] [facility] chronic pain (chief complaint)anx iety1 (chief complaint) Abnormal weight gainChronic pain syndrome 6 Abraham Parada. [address], [place], [place], [address] , [place]. [phone] Referring Provider: Tal Rosario, Isma [facility] A, [place], [place], [address]. tel:[phone] OFFICE/OUTPA TIENT VISIT, [facility], [address], [place], [place], [address], [place] tel:[phone] [facility] anxiety1 (chief complaint)fib romyalgia1 (chief complaint)ADD 1 (chief complaint)hem aturia1 (chief complaint) Chronic pain syndromeAnxiolyt ic dependenceHematu riaAttention deficit 3 6 Abraham Parada. [address], [place], [place], [address] , [place]. [phone] Referring Provider: Isma Adan [facility], [place], [place], [address]. tel:[phone] OFFICE/OUTPA TIENT VISIT, [facility], [address], [place], [place], [address], [place] tel:[phone] [facility] Fibromyalgia (chief complaint)fib romyalgia1 (chief complaint)ADD (chief complaint)anx iety1 (chief complaint)HTN (chief complaint)hem aturia1 (chief complaint) FibromyalgiaEsse ntial (primary) hypertensionHema turiaAnxiolytic dependence 0 6 Abraham Parada. [address], [place], [place], [address] , [place]. [phone] Referring Provider: Isma Adan [facility], [place], [place], [address]. tel:[phone] OFFICE/OUTPA TIENT VISIT, [facility], [address], [place], [place], [address], [place] tel:[phone] [facility] fibromyalgia (chief complaint)fib romyalgia1 (chief complaint)ADD (chief complaint)anx iety1 (chief complaint)HTN (chief complaint) Anxiolytic dependenceFibrom yalgiaEssential (primary) hypertension January-0 5 6 Abraham Parada. [address], [place], [place], [address] , [place]. [phone] Referring Provider: Isma Adan [facility], [place], [place], [address]. tel:[phone] OFFICE/OUTPA TIENT VISIT, [facility], [address], [place], [place], [address], [place] tel:[phone] [facility] back pain1 (chief complaint)anx iety1 (chief complaint)ADD 1 (chief complaint)col on CA (chief complaint)itc hy eye (chief complaint) Acute atopic conjunctivitis, bilateralFibromy algiaFamily history of malignant neoplasm, unspecified Dec-0 7 6 Abraham Parada. [address], [place], [place], [address] , [place]. [phone] Referring Provider: Isma Adan [facility], [place], [place], [address]. tel:[phone] OFFICE/OUTPA TIENT VISIT, [facility], [address], [place], [place], [address], [place] tel:[phone] [facility] anxiety (chief complaint)chr onic pain (chief complaint)ADD (chief complaint) Chronic pain syndromeAnxiolyt ic dependence Nov- 0 6 Abraham Parada. [address], [place], [place], [address] , [place]. tel:[phone] Referring Provider: Isma Adan [address], [place], [place], [address]. tel:[phone] OFFICE/OUTPA TIENT VISIT, [facility], [address], [place], [place], [address], [place] tel:[phone] [facility] Medicine HTN (chief complaint)fib romyalgia1 (chief complaint)anx iety1 (chief complaint)chio mogram (chief complaint)ADD (chief complaint) FibromyalgiaAnxi olytic dependenceInconc lusive mammogramEssenti al (primary) hypertension 6 Abraham Parada. [address], [place], [place], [address] , [place]. [phone] Referring Provider: Isma Adan Sebastian [facility] A, [place], [place], [address]. tel:[phone] OFFICE/OUTPA TIENT VISIT, [facility], [address], [place], [place], [address], [place] tel:[phone] [facility] mammogram1 (chief complaint)kathryn k pain (chief complaint)anx iety1 (chief complaint)ADD (chief complaint) Inconclusive mammogramChronic pain syndromeAnxiolyt ic dependence 6 Abraham Parada. [address], [place], [place], [address] , [place]. [phone] Referring Provider: Isma Adna [address], [place], [place], [address]. tel:[phone] OFFICE/OUTPA TIENT VISIT, [facility], [address], [place], [place], [address], [place] tel:[phone] [facility] HTN1 (chief complaint)anx iety1 (chief complaint)kathryn k pain1 (chief complaint) Chronic pain syndromeAnxiolyt ic dependenceEssent ial (primary) hypertension 5 Abraham Parada. [address], [place], [place], [address] , [place]. [phone] Referring Provider: Isma Adan [address], [place], [place], [address]. tel:[phone] OFFICE/OUTPA TIENT VISIT, [facility], [address], [place], [place], [address], [place] tel:[phone] [facility] HTN1 (chief complaint)kathryn k pain1 (chief complaint)ADD 1 (chief complaint) Essential (primary) hypertensionOthe r spondylosis, lumbar regionAttention deficitGeneraliz ed anxiety disorder 5 Abraham Walsh [address], [place], [place], [address] , [place]. tel:[phone] Referring Provider: Isma Adan [address], [place], [place], [address]. tel:[phone] OFFICE/OUTPA TIENT VISIT, [facility], [address], [place], [place], [address], [place] tel:[phone] [facility] HTN (chief complaint)LBP 1 (chief complaint)ADD 1 (chief complaint)Anx iety1 (chief complaint) Essential (primary) hypertensionEnco unter for other screening for malignant neoplasm of breastOther spondylosis, lumbar region 5 Abraham Parada. [address], [place], [place], [address] , [place]. tel:[phone] Referring Provider: Isma Adan [address], [place], [place], [address]. tel:[phone] OFFICE/OUTPA TIENT VISIT, [facility], [facility] [address] [place], [address], [place] tel:[phone] [facility] HTN (chief complaint)Anx iety (chief complaint)kathryn k pain (chief complaint)ADD (chief complaint) Dietary surveillance and counselingLumbag oUnspecified essential hypertensionAnxi olytic dependence 5 Abraham Parada. [address], [place], [place], [address] , [place]. tel:[phone] Referring Provider: Isma Adan [address], [place], [place], [address]. tel:[phone] OFFICE/OUTPA TIENT VISIT, [facility], [address], [place], [place], [address], [place] tel:[phone] [facility] lumbago (chief complaint)Anx iety (chief complaint)ADD (chief complaint)HTN (chief complaint) LumbagoUnspecifi ed essential hypertensionDiet solis surveillance and counseling 5 Abraham Parada. [address], [place], [place], [address] , [place]. tel:[phone] Referring Provider: Isma Adan [address], [place], [place], [address]. tel:[phone] OFFICE/OUTPA TIENT VISIT, [facility], [address], [place], [place], [address], [place] tel:[phone] [facility] back pain (chief complaint)ADD (chief complaint)Anx eity (chief complaint) Dietary surveillance and counselingUnspec ified essential hypertensionLumb agoAnxiolytic dependence 5 Abraham Parada. [address], [place], [place], [address] , [place]. tel:[phone] Referring Provider: Isma Adan [address], [place], [place], [address]. tel:[phone] OFFICE/OUTPA TIENT VISIT, [facility], [address], [place], [place], [address], [place] tel:[phone] [facility] lumbago (chief complaint)ADD (chief complaint)Anx iety (chief complaint) Dietary surveillance and counselingUnspec ified essential hypertensionLumb ago 5 Abraham Parada. [address], [place], [place], [address] , [place]. tel:[phone] Referring Provider: Isma Adan [address], [place], [place], [address]. tel:[phone] OFFICE/OUTPA TIENT VISIT, [facility], [address], [place], [place], [address], [place] tel:[phone] [facility] back pain (chief complaint)ADD (chief complaint)Anx iety (chief complaint) Dietary surveillance and counselingLumbag oAnxiolytic dependence 5 Abraham Parada. [address], [place], [place], [address] , [place]. tel:[phone] Referring Provider: Isma Adan [address], [place], [place], [address]. tel:[phone] OFFICE/OUTPA TIENT VISIT, [facility], [address], [place], [place], [address], [place] [phone] [facility] bee sting (chief complaint)kathryn k pain (chief complaint)ADD (chief complaint)anx iety (chief complaint) Dietary surveillance and counselingOrbita l cellulitisLumbag o 5 Abraham Walsh [address], [place], [place], [address] , [place]. tel:[phone] Referring Provider: Isma Adan [address], [place], [place], [address]. tel:[phone] OFFICE/OUTPA TIENT VISIT, [facility], [address], [place], [place], [address], [place] tel:[phone] [facility] ulnar neuropathy (chief complaint)kathryn k pain (chief complaint)hem aturia (chief complaint)anx iety (chief complaint) Dietary surveillance and counselingLesion of ulnar nerveLumbagoHEMA TURIA NOS 5 Abraham Ash[address], [place], [place], [address] , [place]. [phone] Referring Provider: Isma Adan [address], [place], [place], [address]. tel:[phone] OFFICE/OUTPA TIENT VISIT, [facility], [address], [place], [place], [address], [place] tel:[phone] [facility] back pain (chief complaint)Anx eity (chief complaint)ADD (chief complaint) Dietary surveillance and counselingLumbag oOpioid type dependence, unspecified use 5 Abraham Parada. [address], [place], [place], [address] , . tel:[phone] Referring Provider: Isma Adan [address], [place], [place], [address]. tel:[phone] OFFICE/OUTPA TIENT VISIT, [facility], [address] [place], [address], [place] tel:[phone] [facility] chest nodule (chief complaint)kathryn k pain (chief complaint)anx iety (chief complaint)ADD (chief complaint)sin us (chief complaint) Dietary surveillance and counselingSOLITA RY PULMONRY NODULELumbagoSed ative, hypnotic or anxiolytic dependence, unspecifiedOther acute sinusitis 5 Abraham Parada. [address], [place], [place], [address] , [place]. tel:[phone] Referring Provider: Isma Adan [address], [place], [place], [address]. tel:[phone] OFFICE/OUTPA TIENT VISIT, [facility], [address] [place], [address], [place] tel:[phone] [facility] back pain (chief complaint)ADD (chief complaint)anx iety (chief complaint) Dietary surveillance and counselingOther diseases of lung, not elsewhere classifiedLumbag o 5 Abraham Parada. [address], [place], [place], [address] , [place]. [phone] Referring Provider: Isma Adan [address] [place], [address]. tel:[phone] OFFICE/OUTPA TIENT VISIT, [facility], [address], [place], [place], [address], [place] tel:[phone] [facility] back pain (chief complaint)anx iety (chief complaint)ADD (chief complaint) Dietary surveillance and counselingLumbag oSwelling, mass, or lump in chest 4 Abraham Parada. [address], [place], [place], [address] , [place]. tel:[phone] Referring Provider: Isma Adan [address], [place], [place], [address]. tel:[phone] OFFICE/OUTPA TIENT VISIT, [facility], [address], [place], [place], [address], [place] tel:[phone] [facility] paresthesia (chief complaint)kathryn k pain (chief complaint)ADd (chief complaint)anx iety (chief complaint) Dietary surveillance and counselingDistur bance of skin sensationCervica lgiaInjury to ulnar nerveSwelling, mass, or lump in chest 4 Abraham Walsh [address], [place], [place], [address] , [place]. tel:[phone] Referring Provider: Isma Adan [address], [place], [place], [address]. tel:[phone] OFFICE/OUTPA TIENT VISIT, [facility], [address] [place], [address], [place] tel:[phone] [facility] back pain (chief complaint)num bness (chief complaint)Anx iety (chief complaint) Dietary surveillance and counselingLumbag oDisturbance of skin sensationCervica lgia 4 Abraham Walsh [address], [address], [place], [place], [address] , [place]. tel:[phone] Referring Provider: Isma Adan [address], [place], [place], [address]. tel:[phone] OFFICE/OUTPA TIENT VISIT, [facility], [address], [place], [place], [address], [place] tel:[phone] [facility] numbness (chief complaint)kathryn k pain (chief complaint)anx iety (chief complaint)fat igue (chief complaint) Dietary surveillance and counselingFatigu e / MalaiseDisturban ce of skin sensationLumbago 4 Abraham Parada. [address], [place], [place], [address] , [place]. tel:[phone] Referring Provider: Isma Adan [address], [place], [place], [address]. tel:[phone] OFFICE/OUTPA TIENT VISIT, [facility], [address] [place], [address], [place] tel:[phone] [facility] back pain (chief complaint)Anx iety (chief complaint)maxi g nodule (chief complaint)num bness (chief complaint) Dietary surveillance and counselingDistur bance of skin sensationLumbago Swelling, mass, or lump in chest 4 Abraham Walsh [address], [address], [place], [place], [address] , [place]. tel:[phone] Referring Provider: Isma Adan [address], [place], [place], [address]. tel:[phone] OFFICE/OUTPA TIENT VISIT, [facility], [address] [place], [address], [place] tel:[phone] [facility] cough (chief complaint)kathryn k pain (chief complaint)anx iety (chief complaint)aDD (chief complaint)con traception (chief complaint) Dietary surveillance and counselingBronch itis, AcuteLumbago 4 Abraham Parada. [address], [place], [place], [address] , [place]. tel:[phone] Referring Provider: Isma Adan [facility] A, [place], [place], [address]. tel:[phone] OFFICE/OUTPA TIENT VISIT, [facility], [address] [place], [address], [place] tel:[phone] [facility] back pain (chief complaint)anx iety (chief complaint)ADD (chief complaint) Dietary surveillance and counselingLumbag o 4 Abraham Parada. [address], [place], [place], [address] , [place]. tel:[phone] Referring Provider: Isma Adan [address], [place], [place], [address]. tel:[phone] OFFICE/OUTPA TIENT VISIT, [facility], [address] [place], [address], [place] tel:[phone] [facility] contact dermatitis (chief complaint)anx iety (chief complaint)kathryn k pain (chief complaint) Dietary surveillance and counselingOther diseases of lung, not elsewhere classifiedRash and other nonspecific skin eruptionLumbago 4 Abraham Parada. [address], [place], [place], [address] , [place]. tel:[phone] Referring Provider: Isma Adan [facility] [place], [address]. tel:[phone] OFFICE/OUTPA TIENT VISIT, [facility], [address] [place], [address], [place] tel:[phone] [facility] rash (chief complaint)kathryn k pain (chief complaint)Anx iety (chief complaint)num bness (chief complaint) Dietary surveillance and counselingContac t dermatitis and other eczema due to other specified agentsLumbagoDis turbance of skin sensationSwellin g, mass, or lump in chest 4 Abraham Parada. [address], [place], [place], [address] , [place]. [phone] Referring Provider: [facility] [place], [address]. tel:[phone] OFFICE/OUTPA TIENT VISIT, [facility], [address], [place], [place], [address], [place] tel:[phone] [facility] back pain (chief complaint)rig ht arm numbness (chief complaint)maxi g nodule (chief complaint) Dietary surveillance and counselingSwelli ng, mass, or lump in chestDisturbance of skin sensationLumbago Dec- 4 Abraham Walsh [address], [place], [place], [address] , [place]. tel:[phone] Referring Provider: Isma Adan [address], [place], [place], [address]. tel:[phone] OFFICE/OUTPA TIENT VISIT, [facility], [address], [place], [place], [address], [place] tel:[phone] [facility] back pain (chief complaint)orozco d numbness (chief complaint)Anx iety (chief complaint)ADD (chief complaint) Dietary surveillance and counselingLumbag oDisturbance of skin sensationOther diseases of lung, not elsewhere classified 4 Abraham Walsh [address], [place], [place], [address] , [place]. [phone] Referring Provider: Isma Adan [address], [place], [place], [address]. tel:[phone] OFFICE/OUTPA TIENT VISIT, [facility], [address], [place], [place], [address], [place] tel:[phone] [facility] back pain (chief complaint)ADD (chief complaint)anx iety (chief complaint) Dietary surveillance and counselingLumbag oOther diseases of lung, not elsewhere classified 4 Abraham Walsh [address], [place], [place], [address] , [place]. tel:[phone] Referring Provider: Isma Adan [address], [place], [place], [address]. tel:[phone] OFFICE/OUTPA TIENT VISIT, [facility], [address], [place], [place], [address], [place] tel:[phone] [facility] back pain (chief complaint)anx iety (chief complaint)ADD (chief complaint) Dietary surveillance and counselingLumbag o Sep- 4 Abraham Walsh [address], [place], [place], [address] , [place]. tel:[phone] Referring Provider: Isma Adan [address], [place], [place], [address]. tel:[phone] OFFICE/OUTPA TIENT VISIT, [facility], [address], [place], [place], [address], [place] tel:[phone] [facility] lung nodule (chief complaint)anx iety (chief complaint)ADD (chief complaint)nec k pain (chief complaint) Dietary surveillance and counselingOther diseases of lung, not elsewhere classifiedCervic algiaLumbago 3 Abraham Walsh [address], [place], [place], [address] , [place]. [phone] Referring Provider: Isma Adan [address], [place], [place], [address]. tel:[phone] OFFICE/OUTPA TIENT VISIT, [facility], [address], [place], [place], [address], [place] tel:[phone] [facility] back pain (chief complaint)anx iety (chief complaint)ADD (chief complaint) Dietary surveillance and counselingLumbag oPain in joint involving lower leg 3 Abraham Walsh [address], [place], [place], [address] , [place]. [phone] Referring Provider: Isma Adan [address], [place], [place], [address]. tel:[phone] OFFICE/OUTPA TIENT VISIT, [facility], [address], [place], [place], [address], [place] tel:[phone] [facility] pain (chief complaint)blo piedad in stool (chief complaint)nod e left knee (chief complaint) Dietary surveillance and counselingLumbag oPain in joint involving lower legHemorrhage of rectum and anus 3 Abraham Walsh [address], [place], [place], [address] , [place]. tel:[phone] Referring Provider: Tal Rosario, [address], [place], [place], [address]. tel:[phone] OFFICE/OUTPA TIENT VISIT, [facility], [address], [place], [place], [address], [place] [phone] [facility] lumbago (chief complaint)anx iety (chief complaint) Dietary surveillance and counselingLumbag oCervicalgia 3 Abraham Parada. [address], [place], [place], [address] , [place]. [phone] Referring Provider: Isma Adan [address], [place], [place], [address]. tel:[phone] OFFICE/OUTPA TIENT VISIT, [facility], [address], [place], [place], [address], [place] tel:[phone] [facility] lumbago (chief complaint)ADD (chief complaint)par esthesia (chief complaint) Dietary surveillance and counselingCervic algiaLumbagoDist urbance of skin sensationOther diseases of lung, not elsewhere classified 3 Abraham Parada. [address], [place], [place], [address] , [place]. tel:[phone] Referring Provider: Isma Adan [address], [place], [place], [address]. tel:[phone] OFFICE/OUTPA TIENT VISIT, [facility], [address], [place], [place], [address], [place] tel:[phone] [facility] back pain (chief complaint)anx iety (chief complaint)ADD (chief complaint) Dietary surveillance and counselingLumbag oDisturbance of skin sensationCervica lgia 3 Abraham Parada. [address], [place], [place], [address] , [place]. tel:[phone] Referring Provider: Tal Rosario [address], [place], [place], [address]. tel:[phone] OFFICE/OUTPA TIENT VISIT, [facility], [address], [place], [place], [address], [place] tel:[phone] [facility] back pain (chief complaint)anx iety (chief complaint)ADD (chief complaint) Dietary surveillance and counselingLumbag oHypertension, Unspecified 3 Abraham Parada. [address], [place], [place], [address] , [place]. tel:[phone] Referring Provider: Isma Adan [address], [place], [place], [address]. tel:[phone] OFFICE/OUTPA TIENT VISIT, [facility], [address], [place], [place], [address], [place] tel:[phone] [facility] back pain (chief complaint)anx iety (chief complaint)ADD (chief complaint)all ergy (chief complaint) Dietary surveillance and counselingLumbag oInsomnia, OtherAllergic rhinitis, cause unspecified 3 Abraham Parada. [address], [place], [place], [address] , [place]. tel:[phone] Referring Provider: Isma Adan [address], [place], [place], [address]. tel:[phone] OFFICE/OUTPA TIENT VISIT, [facility], [address], [place], [place], [address], [place] tel:[phone] [facility] back pain (chief complaint)ADD (chief complaint)juan david matitis (chief complaint)all ergy (chief complaint) Dietary surveillance and counselingLumbag oInsomnia, OtherContact dermatitis and other eczema, unspecified cause 3 Abraham Parada. [address], [place], [place], [address] , [place]. tel:[phone] Referring Provider: Isma Adan [address], [place], [place], [address]. tel:[phone] OFFICE/OUTPA TIENT VISIT, [facility], [address], [place], [place], [address], [place] tel:[phone] [facility] HTN (chief complaint)anx iety (chief complaint)ADD (chief complaint)obe isty (chief complaint) Dietary surveillance and counselingHypert ension, UnspecifiedAbnor mal weight gainInsomnia, Other Dec- 3 Abraham Parada. [address], [place], [place], [address] , [place]. [phone] Referring Provider: Isma Adan [address], [place], [place], [address]. tel:[phone] OFFICE/OUTPA TIENT VISIT, [facility], [address], [place], [place], [address], [place] tel:[phone] [facility] back pain (chief complaint)anx iety (chief complaint) Dietary surveillance and counselingLumbag oHypertension, Unspecified Nov- 3 Abraham Parada. [address], [place], [place], [address] , [place]. tel:[phone] Referring Provider: Isma Adan [address], [place], [place], [address]. tel:[phone] OFFICE/OUTPA TIENT VISIT, [facility], [address], [place], [place], [address], [place] tel:[phone] [facility] back pain (chief complaint)anx iety (chief complaint)rashad h (chief complaint) Dietary surveillance and counselingLumbag oRash and other nonspecific skin eruption 3 Abraham Parada. [address], [place], [place], [address] , [place]. tel:[phone] Referring Provider: Isma Adan [address], [place], [place], [address]. tel:[phone] OFFICE/OUTPA TIENT VISIT, [facility], [address], [place], [place], [address], [place] tel:[phone] [facility] back pain (chief complaint)anx iety (chief complaint)ADD (chief complaint)HLP (chief complaint) Dietary surveillance and counselingLumbag oOther and unspecified hyperlipidemia 3 Abraham Parada. [address], [place], [place], [address] , [place]. tel:[phone] Referring Provider: Isma Adan [address], [place], [place], [address]. tel:[phone] OFFICE/OUTPA TIENT VISIT, [facility], [address], [place], [place], [address], [place] tel:[phone] [facility] back pain (chief complaint)ADD (chief complaint)Anx iety (chief complaint)Obe sity (chief complaint) Dietary surveillance and counselingLumbag oObesity 2 Abraham Parada. [address], [place], [place], [address] , [place]. tel:[phone] Referring Provider: Isma Adan [address], [place], [place], [address]. tel:[phone] OFFICE/OUTPA TIENT VISIT, [facility], [address], [place], [place], [address], [place] tel:[phone] [facility] back pain (chief complaint)anx iety (chief complaint)ADD (chief complaint) LumbagoOther and unspecified hyperlipidemiaDi etary surveillance and counseling 2 Abraham Parada. [address], [place], [place], [address] , [place]. tel:[phone] Referring Provider: Isma Adan [address], [place], [place], [address]. tel:[phone] OFFICE/OUTPA TIENT VISIT, [facility], [address], [place], [place], [address], [place] tel:[phone] [facility] back pain (chief complaint)anx iety (chief complaint) Dietary surveillance and counselingLumbag oGeneralized anxiety disorderAttentio n deficit disorder of childhood without mention of hyperactivity 2 Abraham Parada. [address], [place], [place], [address] , . [phone] Referring Provider: Isma Adan [facility] A, [place], [place], [address]. tel:[phone] OFFICE/OUTPA TIENT VISIT, [facility], [address], [place], [place], [address], [phone] [facility] sore throat (chief complaint) Viral Infection, Unspecified 2 Abraham Parada. [address], [place], [place], [address] , [place]. [phone] Referring Provider: Isma Adan [facility] [place], [address]. tel:[phone] OFFICE/OUTPA TIENT VISIT, [facility], [address], [place], [place], [address], [place] [phone] [facility] back pain (chief complaint)anx iety (chief complaint)fat igue (chief complaint) Dietary surveillance and counselingLumbag oGeneralized anxiety disorderAttentio n deficit disorder of childhood without mention of hyperactivity 2 Abraham Parada. [address] [place], [address] , [place]. [phone] Referring Provider: Isma Adan [address] [place], [address]. tel:[phone] Family History Family Member Type Diagnosis Age At Onset Brother Problem (finding) colon CA at 49 Brother Problem (finding) Alive and well Mother Problem (finding) Stroke Father Problem (finding) pancrea disease Payers Payer name Insurance type Covered green party ID Authoriza tion(s) [employer] CI [id number] Social History Type Description Quantity Date Captured Comments Alcohol Use Details Caffeine Use Details Unknown Tobacco Use Status Never smoked tobacco 2024 Smoking Status Never smoker Sex Female Vital Signs Date / Time: Height Weight BMI Pulse Rate Blood Pressure Temperature Respiratory Rate Body Surface Area Head Circumference BMI percentile Pulse Ox Inhaled Ox 3:03 PM 68.00 in 293.40 lbs 44.6 1 kg/m eter (2) 90 /min 120/74 mm[Hg] 97.8 F 16 /min 96 Chief Complaint And Reason For Visit From encounter dated '12/30/2024 14:55'. ADD (chief complaint). Description: Patient has ADD. Patient has inattentive type. Patient feels scatterbrained. Patient feel poor focus and difficulty completing tasks. Patient states that Adderall is helping with symptoms. Patient feels more focused. Pt feels more energy. Patient denies any headache, dry mouth, headache, chest pain. Patient denies any appetite loss. pain (chief complaint). Description: Pt has chronic low back pain. Pt denies any worsening pain. Ptdenies any loss of bladder control. Pt has 7/10 pain pt failed NSAID and ultram. Pt has DDD ,Pt takes norco PRN for pain. Pt denies any saddle area paresthesia. Pt failed neurontin. pt takes norco and flexeril PRn and doing ok. Pt also takes flexeril PRn GERD1 (chief complaint). Description: Pt has been having GERD and frequent nausea, Pt unable to tolerate omeprazole or pepcid Pt was referred to GI for EGD. Pt has some dysphagia feeling and globus feeling as well. hirustism1 (chief complaint). Description: Pt has facial hirsutism. pt takes spironolactone and doing ok Pt needs it refilled asthma1 (chief complaint). Description: Pt has asthma Pt is on singulair Pt needs albuterol refilled pt unable to tolerate steroid inhaler Plan Of Treatment Date Type Action Status Goal Pap/HPV testing. Due on due Goal Influenza vaccine. Due on Ap due Goal Depression screening. Due on due Goal FOBT. Due on due Goal Tdap. Due on due Goal Td vaccine. Due on due Goal Lipid panel. Due on due Goal Sigmoidoscopy. Due on due Goal Sigmoidoscopy. Due on due Goal Pap/HPV testing. Due on due Goal Influenza vaccine. Due on due Goal Depression screening. Due on due Goal FOBT. Due on due Goal Tdap. Due on due Goal Td vaccine. Due on due Goal Lipid panel. Due on due Goal Lipid panel. Due on due Goal Td vaccine. Due on due Goal Tdap. Due on due Goal FOBT. Due on due Goal Sigmoidoscopy. Due on due Goal Pap/HPV testing. Due on due Goal Influenza vaccine. Due on due Goal Depression screening. Due on due Goal Depression screening. Due on due Goal Influenza vaccine. Due on due Goal Pap/HPV testing. Due on due Goal Sigmoidoscopy. Due on due Goal Lipid panel. Due on due Goal Td vaccine. Due on due Goal Tdap. Due on due Goal FOBT. Due on due Goal Tdap. Due on due Goal Td vaccine. Due on due Goal Lipid panel. Due on due Goal Sigmoidoscopy. Due on due Goal Pap/HPV testing. Due on due Goal Influenza vaccine. Due on due Goal Depression screening. Due on due Goal FOBT. Due on due Goal FOBT. Due on due Goal Tdap. Due on due Goal Td vaccine. Due on due Goal Lipid panel. Due on due Goal Sigmoidoscopy. Due on due Goal Pap/HPV testing. Due on due Goal Influenza vaccine. Due on due Goal Depression screening. Due on due Goal Depression screening. Due on due Goal Influenza vaccine. Due on due Goal Pap/HPV testing. Due on due Goal Sigmoidoscopy. Due on due Goal FOBT. Due on due Goal Tdap. Due on due Goal Td vaccine. Due on due Goal Lipid panel. Due on due Goal Depression screening. Due on due Goal Influenza vaccine. Due on Oc due Goal Pap/HPV testing. Due on due Goal Sigmoidoscopy. Due on due Goal FOBT. Due on due Goal Tdap. Due on due Goal Td vaccine. Due on due Goal Lipid panel. Due on due Goal Depression screening. Due on due Goal Influenza vaccine. Due on due Goal Pap/HPV testing. Due on due Goal Sigmoidoscopy. Due on due Goal FOBT. Due on due Goal Tdap. Due on due Goal Td vaccine. Due on due Goal Lipid panel. Due on due Goal Depression screening. Due on due Goal Influenza vaccine. Due on due Goal Pap/HPV testing. Due on due Goal Sigmoidoscopy. Due on due Goal FOBT. Due on due Goal Tdap. Due on due Goal Td vaccine. Due on due Goal Lipid panel. Due on due Goal Lipid panel. Due on due Goal Td vaccine. Due on due Goal Tdap. Due on due Goal FOBT. Due on due Goal Depression screening. Due on due Goal Influenza vaccine. Due on due Goal Pap/HPV testing. Due on due Goal Sigmoidoscopy. Due on due Goal Sigmoidoscopy. Due on due Goal Lipid panel. Due on due Goal Td vaccine. Due on due Goal Tdap. Due on due Goal FOBT. Due on due Goal Depression screening. Due on due Goal Influenza vaccine. Due on due Goal Pap/HPV testing. Due on due Goal Pap/HPV testing. Due on due Goal Influenza vaccine. Due on due Goal Depression screening. Due on due Goal FOBT. Due on due Goal Tdap. Due on due Goal Sigmoidoscopy. Due on due Goal Lipid panel. Due on due Goal Td vaccine. Due on due Goal Td vaccine. Due on due Goal Lipid panel. Due on due Goal Sigmoidoscopy. Due on due Goal Pap/HPV testing. Due on due Goal Influenza vaccine. Due on due Goal Depression screening. Due on due Goal FOBT. Due on due Goal Tdap. Due on due Goal Tdap. Due on due Goal FOBT. Due on due Goal Td vaccine. Due on due Goal Lipid panel. Due on due Goal Sigmoidoscopy. Due on due Goal Pap/HPV testing. Due on due Goal Influenza vaccine. Due on due Goal Depression screening. Due on due Goal Depression screening. Due on due Goal Influenza vaccine. Due on due Goal Pap/HPV testing. Due on due Goal Sigmoidoscopy. Due on due Goal Tdap. Due on due Goal FOBT. Due on due Goal Td vaccine. Due on due Goal Lipid panel. Due on due Goal Lipid panel. Due on due Goal Td vaccine. Due on due Goal FOBT. Due on due Goal Tdap. Due on due Goal Depression screening. Due on due Goal Influenza vaccine. Due on due Goal Pap/HPV testing. Due on due Goal Sigmoidoscopy. Due on due Goal Sigmoidoscopy. Due on due Goal Lipid panel. Due on due Goal Td vaccine. Due on due Goal FOBT. Due on due Goal Tdap. Due on due Goal Depression screening. Due on due Goal Influenza vaccine. Due on due Goal Pap/HPV testing. Due on due Goal Pap/HPV testing. Due on due Goal Influenza vaccine. Due on due Goal Depression screening. Due on due Goal Tdap. Due on due Goal FOBT. Due on due Goal Sigmoidoscopy. Due on due Goal Lipid panel. Due on due Goal Td vaccine. Due on due Goal Td vaccine. Due on due Goal Lipid panel. Due on due Goal Sigmoidoscopy. Due on due Goal Pap/HPV testing. Due on due Goal Influenza vaccine. Due on due Goal Depression screening. Due on due Goal Tdap. Due on due Goal FOBT. Due on due Goal FOBT. Due on due Goal Tdap. Due on due Goal Td vaccine. Due on due Goal Lipid panel. Due on due Goal Sigmoidoscopy. Due on due Goal Pap/HPV testing. Due on due Goal Influenza vaccine. Due on due Goal Depression screening. Due on due Goal Depression screening. Due on due Goal Influenza vaccine. Due on due Goal Pap/HPV testing. Due on due Goal Sigmoidoscopy. Due on due Goal FOBT. Due on due Goal Tdap. Due on due Goal Td vaccine. Due on due Goal Lipid panel. Due on due Goal Sigmoidoscopy. Due on due Goal Pap/HPV testing. Due on due Goal Influenza vaccine. Due on due Goal Depression screening. Due on due Goal FOBT. Due on due Goal Tdap. Due on due Goal Td vaccine. Due on due Goal Lipid panel. Due on due Goal Lipid panel. Due on due Goal Td vaccine. Due on due Goal Tdap. Due on due Goal FOBT. Due on due Goal Sigmoidoscopy. Due on due Goal Pap/HPV testing. Due on due Goal Influenza vaccine. Due on due Goal Depression screening. Due on due Goal Depression screening. Due on due Goal Influenza vaccine. Due on due Goal Pap/HPV testing. Due on due Goal Sigmoidoscopy. Due on due Goal Lipid panel. Due on due Goal Td vaccine. Due on due Goal Tdap. Due on due Goal FOBT. Due on due Goal FOBT. Due on due Goal Tdap. Due on due Goal Depression screening. Due on due Goal Influenza vaccine. Due on due Goal Pap/HPV testing. Due on due Goal Sigmoidoscopy. Due on due Goal Lipid panel. Due on due Goal Td vaccine. Due on due Goal Td vaccine. Due on due Goal Lipid panel. Due on due Goal Sigmoidoscopy. Due on due Goal FOBT. Due on due Goal Tdap. Due on due Goal Depression screening. Due on due Goal Influenza vaccine. Due on due Goal Pap/HPV testing. Due on due Goal Sigmoidoscopy. Due on due Goal Pap/HPV testing. Due on due Goal Influenza vaccine. Due on due Goal Depression screening. Due on due Goal Tdap. Due on due Goal FOBT. Due on due Goal Td vaccine. Due on due Goal Lipid panel. Due on due Goal Lipid panel. Due on due Goal Td vaccine. Due on due Goal FOBT. Due on due Goal Tdap. Due on due Goal Sigmoidoscopy. Due on due Goal Pap/HPV testing. Due on due Goal Influenza vaccine. Due on due Goal Depression screening. Due on due Goal Lipid panel. Due on due Goal Td vaccine. Due on due Goal FOBT. Due on due Goal Tdap. Due on due Goal Sigmoidoscopy. Due on due Goal Pap/HPV testing. Due on due Goal Influenza vaccine. Due on due Goal Depression screening. Due on due Goal Pap/HPV testing. Due on due Goal Sigmoidoscopy. Due on due Goal Lipid panel. Due on due Goal Td vaccine. Due on due Goal FOBT. Due on due Goal Tdap. Due on due Goal Depression screening. Due on due Goal Influenza vaccine. Due on due Goal Influenza vaccine. Due on due Goal Depression screening. Due on due Goal Pap/HPV testing. Due on due Goal Sigmoidoscopy. Due on due Goal Lipid panel. Due on 022 due Goal Td vaccine. Due on due Goal FOBT. Due on due Goal Tdap. Due on due Goal Tdap. Due on due Goal FOBT. Due on due Goal Td vaccine. Due on due Goal Lipid panel. Due on due Goal Influenza vaccine. Due on due Goal Depression screening. Due on due Goal Pap/HPV testing. Due on due Goal Sigmoidoscopy. Due on due Goal Sigmoidoscopy. Due on due Goal Pap/HPV testing. Due on due Goal Tdap. Due on due Goal FOBT. Due on due Goal Td vaccine. Due on due Goal Lipid panel. Due on due Goal Influenza vaccine. Due on due Goal Depression screening. Due on due Goal Depression screening. Due on due Goal Influenza vaccine. Due on due Goal Lipid panel. Due on due Goal Td vaccine. Due on due Goal Sigmoidoscopy. Due on due Goal Pap/HPV testing. Due on due Goal Tdap. Due on due Goal FOBT. Due on due Goal FOBT. Due on due Goal Tdap. Due on due Goal Depression screening. Due on due Goal Influenza vaccine. Due on due Goal Lipid panel. Due on due Goal Td vaccine. Due on due Goal Sigmoidoscopy. Due on due Goal Pap/HPV testing. Due on due Goal Pap/HPV testing. Due on due Goal Sigmoidoscopy. Due on due Goal Td vaccine. Due on due Goal Lipid panel. Due on due Goal FOBT. Due on due Goal Tdap. Due on due Goal Depression screening. Due on due Goal Influenza vaccine. Due on due Goal Influenza vaccine. Due on due Goal Depression screening. Due on due Goal Pap/HPV testing. Due on due Goal Sigmoidoscopy. Due on due Goal Td vaccine. Due on due Goal Lipid panel. Due on due Goal FOBT. Due on due Goal Tdap. Due on due Goal Tdap. Due on due Goal FOBT. Due on due Goal Lipid panel. Due on due Goal Td vaccine. Due on due Goal Influenza vaccine. Due on due Goal Depression screening. Due on due Goal Pap/HPV testing. Due on due Goal Sigmoidoscopy. Due on due Goal Sigmoidoscopy. Due on due Goal Pap/HPV testing. Due on due Goal Tdap. Due on due Goal FOBT. Due on due Goal Lipid panel. Due on due Goal Td vaccine. Due on due Goal Influenza vaccine. Due on due Goal Depression screening. Due on due Goal Depression screening. Due on due Goal Influenza vaccine. Due on due Goal Td vaccine. Due on due Goal Lipid panel. Due on due Goal Sigmoidoscopy. Due on due Goal Pap/HPV testing. Due on due Goal Tdap. Due on due Goal FOBT. Due on due Goal Influenza vaccine. Due on due Goal Td vaccine. Due on due Goal Lipid panel. Due on due Goal Sigmoidoscopy. Due on due Goal Pap/HPV testing. Due on due Goal FOBT. Due on due Goal Tdap. Due on due Goal Depression screening. Due on due Goal Depression screening. Due on due Goal Tdap. Due on due Goal Influenza vaccine. Due on due Goal Td vaccine. Due on due Goal Lipid panel. Due on due Goal Sigmoidoscopy. Due on due Goal Pap/HPV testing. Due on due Goal FOBT. Due on due Goal FOBT. Due on due Goal Pap/HPV testing. Due on due Goal Depression screening. Due on due Goal Tdap. Due on due Goal Influenza vaccine. Due on due Goal Td vaccine. Due on due Goal Lipid panel. Due on due Goal Sigmoidoscopy. Due on due Goal Sigmoidoscopy. Due on due Goal Lipid panel. Due on due Goal Td vaccine. Due on due Goal Influenza vaccine. Due on due Goal Tdap. Due on due Goal FOBT. Due on due Goal Pap/HPV testing. Due on due Goal Depression screening. Due on due Goal Depression screening. Due on due Goal Pap/HPV testing. Due on due Goal Sigmoidoscopy. Due on due Goal Lipid panel. Due on due Goal Td vaccine. Due on due Goal Influenza vaccine. Due on due Goal Tdap. Due on due Goal FOBT. Due on due Goal FOBT. Due on due Goal Tdap. Due on due Goal Depression screening. Due on due Goal Pap/HPV testing. Due on due Goal Sigmoidoscopy. Due on due Goal Lipid panel. Due on due Goal Td vaccine. Due on due Goal Influenza vaccine. Due on Oc due Goal Influenza vaccine. Due on Se due Goal Td vaccine. Due on due Goal Lipid panel. Due on due Goal Sigmoidoscopy. Due on due Goal Pap/HPV testing. Due on due Goal FOBT. Due on due Goal Tdap. Due on due Goal Depression screening. Due on due Goal Depression screening. Due on due Goal Tdap. Due on due Goal Influenza vaccine. Due on due Goal Td vaccine. Due on due Goal Lipid panel. Due on due Goal Sigmoidoscopy. Due on due Goal Pap/HPV testing. Due on due Goal FOBT. Due on due Goal FOBT. Due on due Goal Pap/HPV testing. Due on due Goal Depression screening. Due on due Goal Tdap. Due on due Goal Influenza vaccine. Due on due Goal Td vaccine. Due on due Goal Lipid panel. Due on due Goal Sigmoidoscopy. Due on due Goal Sigmoidoscopy. Due on due Goal Lipid panel. Due on due Goal Td vaccine. Due on due Goal Influenza vaccine. Due on due Goal Tdap. Due on due Goal FOBT. Due on due Goal Pap/HPV testing. Due on due Goal Depression screening. Due on due Goal Sigmoidoscopy. Due on due Goal Lipid panel. Due on due Goal Td vaccine. Due on due Goal Influenza vaccine. Due on due Goal Tdap. Due on due Goal FOBT. Due on due Goal Pap/HPV testing. Due on due Goal Depression screening. Due on due Goal Sigmoidoscopy. Due on due Goal Lipid panel. Due on due Goal Td vaccine. Due on due Goal Influenza vaccine. Due on due Goal Tdap. Due on due Goal FOBT. Due on due Goal Pap/HPV testing. Due on due Goal Depression screening. Due on due Goal Depression screening. Due on due Goal Sigmoidoscopy. Due on due Goal Lipid panel. Due on due Goal Td vaccine. Due on due Goal Influenza vaccine. Due on due Goal Tdap. Due on due Goal FOBT. Due on due Goal Pap/HPV testing. Due on due Goal Sigmoidoscopy. Due on due Goal Lipid panel. Due on due Goal Td vaccine. Due on due Goal Influenza vaccine. Due on due Goal Tdap. Due on due Goal FOBT. Due on due Goal Pap/HPV testing. Due on due Goal Depression screening. Due on due Goal Sigmoidoscopy. Due on due Goal Lipid panel. Due on due Goal Td vaccine. Due on due Goal Influenza vaccine. Due on due Goal Tdap. Due on due Goal FOBT. Due on due Goal Pap/HPV testing. Due on due Goal Depression screening. Due on due Goal Depression screening. Due on due Goal Pap/HPV testing. Due on due Goal FOBT. Due on due Goal Tdap. Due on due Goal Influenza vaccine. Due on due Goal Td vaccine. Due on due Goal Lipid panel. Due on due Goal Sigmoidoscopy. Due on due Goal Sigmoidoscopy. Due on due Goal Lipid panel. Due on due Goal Td vaccine. Due on due Goal Influenza vaccine. Due on due Goal Tdap. Due on due Goal FOBT. Due on due Goal Pap/HPV testing. Due on due Goal Depression screening. Due on due Goal Sigmoidoscopy. Due on due Goal Lipid panel. Due on due Goal Td vaccine. Due on due Goal Influenza vaccine. Due on Oc due Goal Tdap. Due on due Goal FOBT. Due on due Goal Pap/HPV testing. Due on due Goal Depression screening. Due on due Goal Depression screening. Due on due Goal Pap/HPV testing. Due on due Goal FOBT. Due on due Goal Tdap. Due on due Goal Influenza vaccine. Due on Se due Goal Td vaccine. Due on due Goal Lipid panel. Due on due Goal Sigmoidoscopy. Due on due Goal Depression screening. Due on due Goal Pap/HPV testing. Due on due Goal FOBT. Due on due Goal Tdap. Due on due Goal Influenza vaccine. Due on due Goal Td vaccine. Due on due Goal Lipid panel. Due on due Goal Sigmoidoscopy. Due on due Goal Depression screening. Due on due Goal Pap/HPV testing. Due on due Goal FOBT. Due on due Goal Tdap. Due on due Goal Influenza vaccine. Due on due Goal Td vaccine. Due on due Goal Lipid panel. Due on due Goal Sigmoidoscopy. Due on due Goal Depression screening. Due on due Goal Pap/HPV testing. Due on due Goal FOBT. Due on due Goal Tdap. Due on due Goal Influenza vaccine. Due on due Goal Td vaccine. Due on due Goal Lipid panel. Due on due Goal Sigmoidoscopy. Due on due Goal Depression screening. Due on due Goal Pap/HPV testing. Due on due Goal FOBT. Due on due Goal Tdap. Due on due Goal Influenza vaccine. Due on due Goal Td vaccine. Due on due Goal Lipid panel. Due on due Goal Sigmoidoscopy. Due on due Goal Sigmoidoscopy. Due on due Goal Lipid panel. Due on due Goal Td vaccine. Due on due Goal Influenza vaccine. Due on due Goal Tdap. Due on due Goal FOBT. Due on due Goal Pap/HPV testing. Due on due Goal Depression screening. Due on due Goal Depression screening. Due on due Goal Pap/HPV testing. Due on due Goal FOBT. Due on due Goal Tdap. Due on due Goal Influenza vaccine. Due on due Goal Td vaccine. Due on due Goal Lipid panel. Due on due Goal Sigmoidoscopy. Due on due Goal Depression screening. Due on due Goal Pap/HPV testing. Due on due Goal FOBT. Due on due Goal Tdap. Due on due Goal Influenza vaccine. Due on due Goal Td vaccine. Due on due Goal Lipid panel. Due on due Goal Sigmoidoscopy. Due on due Goal Depression screening. Due on due Goal Pap/HPV testing. Due on due Goal FOBT. Due on due Goal Tdap. Due on due Goal Influenza vaccine. Due on due Goal Td vaccine. Due on due Goal Lipid panel. Due on due Goal Sigmoidoscopy. Due on due Goal Sigmoidoscopy. Due on due Goal Lipid panel. Due on due Goal Td vaccine. Due on due Goal Influenza vaccine. Due on due Goal Tdap. Due on due Goal FOBT. Due on due Goal Pap/HPV testing. Due on due Goal Depression screening. Due on due Goal Sigmoidoscopy. Due on due Goal Lipid panel. Due on due Goal Td vaccine. Due on due Goal Influenza vaccine. Due on due Goal Tdap. Due on due Goal FOBT. Due on due Goal Pap/HPV testing. Due on due Goal Depression screening. Due on due Goal Special diet education compl eted Goal Sigmoidoscopy. Due on due Goal Lipid panel. Due on due Goal Td vaccine. Due on due Goal Influenza vaccine. Due on due Goal Tdap. Due on due Goal FOBT. Due on due Goal Pap/HPV testing. Due on due Goal Depression screening. Due on due Goal Special diet education compl eted Goal FOBT. Due on due Goal Pap/HPV testing. Due on due Goal Depression screening. Due on due Goal Sigmoidoscopy. Due on due Goal Lipid panel. Due on due Goal Td vaccine. Due on due Goal Influenza vaccine. Due on due Goal Tdap. Due on due Goal Special diet education compl eted Goal Lipid panel. Due on due Goal Sigmoidoscopy. Due on due Goal Depression screening. Due on due Goal Pap/HPV testing. Due on due Goal FOBT. Due on due Goal Tdap. Due on due Goal Influenza vaccine. Due on due Goal Td vaccine. Due on due Goal Special diet education compl eted Goal Lipid panel. Due on due Goal Sigmoidoscopy. Due on due Goal Depression screening. Due on due Goal Pap/HPV testing. Due on due Goal FOBT. Due on due Goal Tdap. Due on due Goal Influenza vaccine. Due on due Goal Td vaccine. Due on due Goal Special diet education compl eted Goal Lipid panel. Due on due Goal Sigmoidoscopy. Due on due Goal Depression screening. Due on due Goal Pap/HPV testing. Due on due Goal FOBT. Due on due Goal Tdap. Due on due Goal Influenza vaccine. Due on due Goal Td vaccine. Due on due Goal Special diet education compl eted Goal Lipid panel. Due on due Goal Sigmoidoscopy. Due on due Goal Depression screening. Due on due Goal Pap/HPV testing. Due on due Goal FOBT. Due on due Goal Tdap. Due on due Goal Influenza vaccine. Due on due Goal Td vaccine. Due on due Goal Prescribed dietary intake co mpleted Goal Lipid panel. Due on due Goal Sigmoidoscopy. Due on due Goal Depression screening. Due on due Goal Pap/HPV testing. Due on due Goal FOBT. Due on due Goal Tdap. Due on due Goal Influenza vaccine. Due on due Goal Td vaccine. Due on due Goal Special diet education compl eted Goal Td vaccine. Due on due Goal Influenza vaccine. Due on due Goal Tdap. Due on due Goal FOBT. Due on due Goal Pap/HPV testing. Due on due Goal Depression screening. Due on due Goal Sigmoidoscopy. Due on due Goal Lipid panel. Due on due Goal Special diet education compl eted Goal Td vaccine. Due on due Goal Influenza vaccine. Due on due Goal Tdap. Due on due Goal FOBT. Due on due Goal Pap/HPV testing. Due on due Goal Depression screening. Due on due Goal Sigmoidoscopy. Due on due Goal Lipid panel. Due on due Goal Special diet education compl eted Goal Td vaccine. Due on 19 due Goal Influenza vaccine. Due on due Goal Tdap. Due on due Goal FOBT. Due on due Goal Pap/HPV testing. Due on due Goal Depression screening. Due on due Goal Sigmoidoscopy. Due on due Goal Lipid panel. Due on due Goal Special diet education compl eted Goal Td vaccine. Due on 19 due Goal Influenza vaccine. Due on due Goal Tdap. Due on due Goal FOBT. Due on due Goal Pap/HPV testing. Due on due Goal Depression screening. Due on due Goal Sigmoidoscopy. Due on due Goal Lipid panel. Due on due Goal Special diet education compl eted Goal Td vaccine. Due on 18 due Goal Influenza vaccine. Due on due Goal Tdap. Due on due Goal FOBT. Due on due Goal Pap/HPV testing. Due on due Goal Depression screening. Due on due Goal Sigmoidoscopy. Due on due Goal Lipid panel. Due on due Goal Special diet education compl eted Goal Td vaccine. Due on 18 due Goal Influenza vaccine. Due on due Goal Tdap. Due on due Goal FOBT. Due on due Goal Pap/HPV testing. Due on due Goal Depression screening. Due on due Goal Sigmoidoscopy. Due on due Goal Lipid panel. Due on due Goal Special diet education compl eted Goal Lipid panel. Due on due Goal Sigmoidoscopy. Due on due Goal Depression screening. Due on due Goal Pap/HPV testing. Due on due Goal FOBT. Due on due Goal Tdap. Due on due Goal Influenza vaccine. Due on due Goal Td vaccine. Due on 18 due Goal Special diet education compl eted Goal Td vaccine. Due on 18 due Goal Influenza vaccine. Due on due Goal Tdap. Due on due Goal FOBT. Due on due Goal Pap/HPV testing. Due on due Goal Depression screening. Due on due Goal Sigmoidoscopy. Due on due Goal Lipid panel. Due on due Goal Prescribed dietary intake co mpleted Goal Lipid panel. Due on due Goal Sigmoidoscopy. Due on due Goal Depression screening. Due on due Goal Pap/HPV testing. Due on due Goal FOBT. Due on due Goal Tdap. Due on due Goal Influenza vaccine. Due on due Goal Td vaccine. Due on 18 due Goal Special diet education compl eted Goal Lipid panel. Due on due Goal Sigmoidoscopy. Due on due Goal Depression screening. Due on due Goal Pap/HPV testing. Due on due Goal FOBT. Due on due Goal Tdap. Due on due Goal Influenza vaccine. Due on due Goal Td vaccine. Due on due Goal Special diet education compl eted Goal Lipid panel. Due on due Goal Depression screening. Due on due Goal Pap/HPV testing. Due on due Goal Tdap. Due on due Goal Influenza vaccine. Due on due Goal Td vaccine. Due on 18 due Goal Special diet education compl eted Goal Td vaccine. Due on 18 due Goal Influenza vaccine. Due on due Goal Tdap. Due on due Goal Pap/HPV testing. Due on due Goal Depression screening. Due on due Goal Lipid panel. Due on 018 due Goal Special diet education compl eted Goal Td vaccine. Due on 18 due Goal Influenza vaccine. Due on due Goal Tdap. Due on due Goal Pap/HPV testing. Due on due Goal Depression screening. Due on due Goal Lipid panel. Due on due Goal Special diet education compl eted Goal Depression screening. Due on due Goal Pap/HPV testing. Due on due Goal Tdap. Due on due Goal Td vaccine. Due on due Goal Special diet education compl eted Goal Tdap. Due on due Goal Pap/HPV testing. Due on due Goal Td vaccine. Due on due Goal Depression screening. Due on due Goal Td vaccine. Due on 18 due Goal Depression screening. Due on due Goal Tdap. Due on due Goal Pap/HPV testing. Due on due Goal Pap/HPV testing. Due on due Goal Td vaccine. Due on due Goal Tdap. Due on due Goal Depression screening. Due on due Goal Td vaccine. Due on due Goal Depression screening. Due on due Goal Tdap. Due on due Goal Pap/HPV testing. Due on due Goal Pap/HPV testing. Due on due Goal Depression screening. Due on due Goal Td vaccine. Due on due Goal Tdap. Due on due Goal Pap/HPV testing. Due on due Goal Td vaccine. Due on due Goal Tdap. Due on due Goal Depression screening. Due on due Goal Td vaccine. Due on due Goal Tdap. Due on due Goal Pap/HPV testing. Due on due Goal Depression screening. Due on due Goal Depression screening. Due on due Goal Td vaccine. Due on due Goal Pap/HPV testing. Due on due Goal Tdap. Due on due Goal Pap/HPV testing. Due on due Goal Depression screening. Due on due Goal Td vaccine. Due on due Goal Tdap. Due on due Goal Pap/HPV testing. Due on due Goal Td vaccine. Due on 17 due Goal Tdap. Due on due Goal Depression screening. Due on due Goal Tdap. Due on due Goal Pap/HPV testing. Due on due Goal Depression screening. Due on due Goal Td vaccine. Due on due Goal Td vaccine. Due on due Goal Pap/HPV testing. Due on due Goal Tdap. Due on due Goal Depression screening. Due on due Goal Depression screening. Due on due Goal Pap/HPV testing. Due on due Goal Tdap. Due on due Goal Td vaccine. Due on due Goal Depression screening. Due on due Goal Td vaccine. Due on due Goal Tdap. Due on due Goal Pap/HPV testing. Due on due Goal Depression screening. Due on due Goal Td vaccine. Due on 16 due Goal Tdap. Due on due Goal Pap/HPV testing. Due on due Goal Tdap. Due on due Goal Pap/HPV testing. Due on due Goal Td vaccine. Due on 16 due Goal Depression screening. Due on due Goal Depression screening. Due on due Goal Td vaccine. Due on 16 due Goal Tdap. Due on due Goal Pap/HPV testing. Due on due Goal Depression screening. Due on due Goal Td vaccine. Due on 16 due Goal Pap/HPV testing. Due on due Goal Tdap. Due on due Goal Depression screening. Due on due Goal Pap/HPV testing. Due on due Goal Tdap. Due on due Goal Td vaccine. Due on 16 due Goal Pap/HPV testing. Due on due Goal Depression screening. Due on due Goal Td vaccine. Due on due Goal Tdap. Due on due Goal Pap/HPV testing. Due on due Goal Tdap. Due on due Goal Td vaccine. Due on 16 due Goal Depression screening. Due on due Goal Td vaccine. Due on 16 due Goal Depression screening. Due on due Goal Pap/HPV testing. Due on due Goal Tdap. Due on due Goal Pap/HPV testing. Due on due Goal Td vaccine. Due on 16 due Goal Depression screening. Due on due Goal Tdap. Due on due Goal Depression screening. Due on due Goal Tdap. Due on due Goal Td vaccine. Due on 16 due Goal Pap/HPV testing. Due on due Goal Depression screening. Due on due Goal Pap/HPV testing. Due on due Goal Td vaccine. Due on 16 due Goal Tdap. Due on due Goal Tdap. Due on due Goal Depression screening. Due on due Goal Td vaccine. Due on 16 due Goal Pap/HPV testing. Due on due Goal Tdap. Due on due Goal Pap/HPV testing. Due on due Goal Td vaccine. Due on due Goal Depression screening. Due on due Goal Pap/HPV testing. Due on due Goal Tdap. Due on due Goal Td vaccine. Due on 16 due Goal Depression screening. Due on due Goal Pap/HPV testing. Due on due Goal Tdap. Due on due Goal Td vaccine. Due on 15 due Goal Depression screening. Due on due Goal Tdap. Due on due Goal Pap/HPV testing. Due on due Goal Depression screening. Due on due Goal Td vaccine. Due on 15 due Goal Pap/HPV testing. Due on due Goal Td vaccine. Due on 15 due Goal Tdap. Due on due Goal Depression screening. Due on due Goal Pap/HPV testing. Due on due Goal Td vaccine. Due on due Goal Depression screening. Due on due Goal Tdap. Due on due Goal Pap/HPV testing. Due on due Goal Depression screening. Due on due Goal Td vaccine. Due on due Goal Tdap. Due on due Goal Tdap. Due on due Goal Pap/HPV testing. Due on due Goal Td vaccine. Due on due Goal Depression screening. Due on due Goal Td vaccine. Due on due Goal Depression screening. Due on due Goal Tdap. Due on due Goal Pap/HPV testing. Due on due Goal Depression screening. Due on due Goal Pap/HPV testing. Due on due Goal Td vaccine. Due on due Goal Tdap. Due on due Goal Special diet education compl eted Goal Mammogram. Due on 3 due Referral Ordered: DXA BONE DENSITY, AXIAL ordered Referral Ordered: Utility Service Worker (related to Other visual disturbances) ordered Referral Ordered: Referrals: Utility Service Worker. Evaluate and treat ordered Referral Ordered: Ophthalmology (related to Visual disturbance) ordered Referral Ordered: Hematology (related to Secondary polycythemia) ordered Referral Ordered: Referrals: Ophthalmology. Evaluate and treat ordered Referral Ordered: Referrals: Hematology. Evaluate and treat ordered Referral Ordered: Physical Therapy (related to Chronic pain syndrome) ordered Referral Referred To: Physical Therapy Ordered: Referrals: Physical Therapy. Evaluate and treat ordered Referral Ordered: SLEEP STUDY, ATTENDED ordered Referral Ordered: UPPER GI W/ KUB ordered Referral Ordered: COLONOSCOPY AND BIOPSY ordered Referral Ordered: MAMMOGRAM, ONE BREAST ordered Referral Ordered: MRI BRAIN W/O & W/DYE ordered Referral Ordered: Referral: Pulmonary Diseases. ordered Referral Ordered: MOTOR NERVE CONDUCTION TEST ordered Referral Ordered: CT THORAX W/O DYE ordered Referral Referred To: Physical Therapy Ordered: Referral: Physical Therapy. Evaluate and treat. ordered Referral Ordered: Physical Therapy (related to Lumbago) ordered Referral Ordered: KNEE XRAY TWO-VIEW Left ordered Referral Ordered: MAMMOGRAM, SCREENING ordered Referral Ordered: Physical Therapy (related to Cervicalgia) ordered Referral Referred To: Physical Therapy Ordered: Referral: Physical Therapy. ordered Referral Ordered: MRI LUMBAR SPINE W/O DYE ordered Referral Ordered: Referral: Plastic Surg. Evaluate and treat. ordered Appointment Ericka Bruno BOOKED Appointment Ericka Bruno BOOKED Appointment Ericka Bruno BOOKED Appointment Ericka Bruno BOOKED Appointment Ericka Bruno BOOKED Appointment Ericka Bruno BOOKED History Of Present Illness Encounter Date Complaint History Of Prese nt Illness GERD1 Pt has been havi ng GERD and frequent nausea, Pt unable to tolerate omeprazole or pepcid Pt was referred to GI for EGD. Pt has some dysphagia feeling and globus feeling as well. hirustism1 Pt has facial hi rsutism. pt takes spironolactone and doing ok Pt needs it refilled asthma1 Pt has asthma Pt is on singulair Pt needs albuterol refilled pt unable to tolerate steroid inhaler ADD Patient has ADD. Patient has inattentive type. Patient feels scatterbrained. Patient feel poor focus and difficulty completing tasks. Patient states that Adderall is helping with symptoms. Patient feels more focused. Pt feels more energy. Patient denies any headache, dry mouth, headache, chest pain. Patient denies any appetite loss. pain Pt has chronic l ow back pain. Pt denies any worsening pain. Pt denies any loss of bladder control. Pt has 7/10 pain pt failed NSAID and ultram. Pt has DDD ,Pt takes norco PRN for pain. Pt denies any saddle area paresthesia. Pt failed neurontin. pt takes norco and flexeril PRn and doing ok. Pt also takes flexeril PRn ADD Patient has ADD. Patient has inattentive type. Patient feels scatterbrained. Patient feel poor focus and difficulty completing tasks. Patient states that Adderall is helping with symptoms. Patient feels more focused. Pt feels more energy. Patient denies any headache, dry mouth, headache, chest pain. Patient denies any appetite loss. pain Pt has chronic l ow back pain. Pt denies any worsening pain. Pt denies any loss of bladder control. Pt has 7/10 pain pt failed NSAID and ultram. Pt has DDD ,Pt takes norco PRN for pain. Pt denies any saddle area paresthesia. Pt failed neurontin. pt takes norco and flexeril PRn and doing ok. Pt also takes flexeril PRn GERD1 Pt has been havi ng GERD due to ASA and she tried pepcid which makes her tired and she is on alternative omeprazole and pepcid which works ok anxiety1 Pt has chronic a nxiety pt denies any depression or any suicidal or homicidal thought Pt denies any crying spells Pt takes valium PRN and she needs valium refilled . physical Pt needs annual physical pt has chronic low back pain pt denies any loss of bowel or bladder control Pt denies any saddle area paresthesia Pt takes norco PRN for pain and doing ok. Pt has ADD pt doing ok with adderall. Pt has polycythemia vera and she is seeing electronics repair technician now and she is on asa and she is getting phlebotomy regularly. .Pt has hirsutism and she is on spironolactone and dong ok Pt has asthma and allergy. Pt takes singulair Pt denies any acute sob. Pt has been taking ASA and she has been having GERD and she feels that omeprazole made her dizzy and she is afraid of the [facility] side effects of omeprazole. pt denies any abd pain. Pt denies any other complaints P vera1 pt has P vera an d she sees hematology and she is on daily 81 mg ASA which is causing GERD and stomach upset .Her GI started her on omeprazole and she has not started yet Pt has been taking tums Pt denies any ab pain or early satiety anxiety1 Pt has chronic a nxiety Pt denies any depression or any suicidal or homicidal thought pt denies any crying spells Pt takes valium occasionally ADD Patient has ADD. Patient has inattentive type. Patient feels scatterbrained. Patient feel poor focus and difficulty completing tasks. Patient states that Adderall is helping with symptoms. Patient feels more focused. Pt feels more energy. Patient denies any headache, dry mouth, headache, chest pain. Patient denies any appetite loss. pain Pt has chronic l ow back pain. Pt denies any worsening pain. Pt denies any loss of bladder control. Pt has 7/10 pain pt failed NSAID and ultram. Pt has DDD ,Pt takes norco PRN for pain. Pt denies any saddle area paresthesia. Pt failed neurontin. pt takes norco and flexeril PRn and doing ok. Pt also takes flexeril PRn hirsutism1 Pt has hirsutism . Pt doing well with spironolactone ADD Patient has ADD. Patient has inattentive type. Patient feels scatterbrained. Patient feel poor focus and difficulty completing tasks. Patient states that Adderall is helping with symptoms. Patient feels more focused. Pt feels more energy. Patient denies any headache, dry mouth, headache, chest pain. Patient denies any appetite loss. pain Pt has chronic l ow back pain. Pt denies any worsening pain. Pt denies any loss of bladder control. Pt has 7/10 pain pt failed NSAID and ultram. Pt has DDD ,Pt takes norco PRN for pain. Pt denies any saddle area paresthesia. Pt failed neurontin. pt takes norco and flexeril PRn and doing ok ADD Patient has ADD. Patient has inattentive type. Patient feels scatterbrained. Patient feel poor focus and difficulty completing tasks. Patient states that Adderall is helping with symptoms. Patient feels more focused. Pt feels more energy. Patient denies any headache, dry mouth, headache, chest pain. Patient denies any appetite loss. pain Pt has chronic l ow back pain. Pt denies any worsening pain. Pt denies any loss of bladder control. Pt has 7/10 pain pt failed NSAID and ultram. Pt has DDD ,Pt takes norco PRN for pain. Pt denies any saddle area paresthesia. Pt failed neurontin. pt takes norco and flexeril PRn and doing ok P vera1 Pt has P vera. P t is seeing oncology Pt had negative liver ultrasound and she had phlebotomy recently and her CBC is ok. her platelet is borderline high. toothache1 Pt c/o left uppe r molar toothache for a while Pt c/o throbbing pain Pt wants some abx Pt denies any facial pain P vera1 Pt has P vera .P t does not want chemo and she is getting ASA and phlebotomy only. Pt sees oncology ADD Patient has ADD. Patient has inattentive type. Patient feels scatterbrained. Patient feel poor focus and difficulty completing tasks. Patient states that Adderall is helping with symptoms. Patient feels more focused. Pt feels more energy. Patient denies any headache, dry mouth, headache, chest pain. Patient denies any appetite loss. pain Pt has chronic l ow back pain. Pt denies any worsening pain. Pt denies any loss of bladder control. Pt has 7/10 pain pt failed NSAID and ultram. Pt has DDD ,Pt takes norco PRN for pain. Pt denies any saddle area paresthesia. Pt failed neurontin. pt takes norco and flexeril PRn and doing ok ADD Patient has ADD. Patient has inattentive type. Patient feels scatterbrained. Patient feel poor focus and difficulty completing tasks. Patient states that Adderall is helping with symptoms. Patient feels more focused. Pt feels more energy. Patient denies any headache, dry mouth, headache, chest pain. Patient denies any appetite loss. pain Pt has chronic l ow back pain. Pt denies any worsening pain. Pt denies any loss of bladder control. Pt has 7/10 pain pt failed NSAID and ultram. Pt has DDD ,Pt takes norco PRN for pain. Pt denies any saddle area paresthesia. Pt failed neurontin. pt takes norco and flexeril PRn and doing ok ADD Patient has ADD. Patient has inattentive type. Patient feels scatterbrained. Patient feel poor focus and difficulty completing tasks. Patient states that Adderall is helping with symptoms. Patient feels more focused. Pt feels more energy. Patient denies any headache, dry mouth, headache, chest pain. Patient denies any appetite loss. polycythemia1 Pt has polycythe jose Vera Pt is getting phlebotomy regularly Pt was referred to another PV specialist who stopped spironolactone but she is not sure the reason anxiety1 Pt has chronic a nxiety Pt takes valium PRN Pt needs valium refilled. pt denies any depression or any suicidal ash homicidal thought. Pt denies any crying spells pain Pt has chronic l ow back pain. Pt denies any worsening pain. Pt denies any loss of bladder control. Pt has 7/10 pain pt failed NSAID and ultram. Pt has DDD ,Pt takes norco PRN for pain. Pt denies any saddle area paresthesia. Pt failed neurontin. pt takes norco and flexeril PRn and doing ok ADD Patient has ADD. Patient has inattentive type. Patient feels scatterbrained. Patient feel poor focus and difficulty completing tasks. Patient states that Adderall is helping with symptoms. Patient feels more focused. Pt feels more energy. Patient denies any headache, dry mouth, headache, chest pain. Patient denies any appetite loss. pain Pt has chronic l ow back pain. Pt denies any worsening pain. Pt denies any loss of bladder control. Pt has 7/10 pain pt failed NSAID and ultram. Pt has DDD ,Pt takes norco PRN for pain. Pt denies any saddle area paresthesia. Pt failed neurontin. pt takes norco and flexeril PRn and doing ok ADD Patient has ADD. Patient has inattentive type. Patient feels scatterbrained. Patient feel poor focus and difficulty completing tasks. Patient states that Adderall is helping with symptoms. Patient feels more focused. Pt feels more energy. Patient denies any headache, dry mouth, headache, chest pain. Patient denies any appetite loss. pain Pt has chronic l ow back pain. Pt denies any worsening pain. Pt denies any loss of bladder control. Pt has 7/10 pain pt failed NSAID and ultram. Pt has DDD ,Pt takes norco PRN for pain. Pt denies any saddle area paresthesia. Pt failed neurontin. pt takes norco and flexeril PRn and doing ok asthma1 Pt has asthma an d allergy Pt is on singulair. Pt needs albuterol refilled pt rarely feels sob hirsutism1 Pt has hirsutism and she takes spironolactone and doing ok ADD Patient has ADD. Patient has inattentive type. Patient feels scatterbrained. Patient feel poor focus and difficulty completing tasks. Patient states that Adderall is helping with symptoms. Patient feels more focused. Pt feels more energy. Patient denies any headache, dry mouth, headache, chest pain. Patient denies any appetite loss. pain Pt has chronic l ow back pain. Pt denies any worsening pain. Pt denies any loss of bladder control. Pt has 7/10 pain pt failed NSAID and ultram. Pt has DDD ,Pt takes norco PRN for pain. Pt denies any saddle area paresthesia. Pt failed neurontin. pt takes norco and flexeril PRn and doing ok ADD Patient has ADD. Patient has inattentive type. Patient feels scatterbrained. Patient feel poor focus and difficulty completing tasks. Patient states that Adderall is helping with symptoms. Patient feels more focused. Pt feels more energy. Patient denies any headache, dry mouth, headache, chest pain. Patient denies any appetite loss. pain Pt has chronic l ow back pain. Pt denies any worsening pain. Pt denies any loss of bladder control. Pt has 7/10 pain pt failed NSAID and ultram. Pt has DDD ,Pt takes norco PRN for pain. Pt denies any saddle area paresthesia. Pt failed neurontin. pt takes norco and flexeril PRn and doing ok osteopenia1 Pt has osteopeni a on right femoral neck. Pt denies any fx hypothyroidism1 Pt has history o f low thyroid Pt denies any dysphagia or neck pain Pt had repeat thyroid done which is ok as well as TPO and TSI GI virus1 Pt states that s he had some mushroom supplements recently and she started to have nausea, vomiting, diarrhea and burning feeling around fingers and she went to Er and was diagnosed with gastroenteritis Pt was told that she has UTI by ER doctor but she actually did not Pt was treated with nausea meds and abx. Pt states that finger burning resolved Pt still feel some nausea without vomiting Pt denies any blood in tool or diarrhea ADD Patient has ADD. Patient has inattentive type. Patient feels scatterbrained. Patient feel poor focus and difficulty completing tasks. Patient states that Adderall is helping with symptoms. Patient feels more focused. Pt feels more energy. Patient denies any headache, dry mouth, headache, chest pain. Patient denies any appetite loss. pain Pt has chronic l ow back pain. Pt denies any worsening pain. Pt denies any loss of bladder control. Pt has 7/10 pain pt failed NSAID and ultram. Pt has DDD ,Pt takes norco PRN for pain. Pt denies any saddle area paresthesia. Pt failed neurontin. pt takes norco and flexeril PRn and doing ok thyroid1 Pt has low thyro id Pt denies any dysphagia or neck pain Pt just had lab done and result pending ADD Patient has ADD. Patient has inattentive type. Patient feels scatterbrained. Patient feel poor focus and difficulty completing tasks. Patient states that Adderall is helping with symptoms. Patient feels more focused. Pt feels more energy. Patient denies any headache, dry mouth, headache, chest pain. Patient denies any appetite loss. pain Pt has chronic l ow back pain. Pt denies any worsening pain. Pt denies any loss of bladder control. Pt has 7/10 pain pt failed NSAID and ultram. Pt has DDD ,Pt takes norco PRN for pain. Pt denies any saddle area paresthesia. Pt failed neurontin. pt takes norco and flexeril PRn and doing ok ADD Patient has ADD. Patient has inattentive type. Patient feels scatterbrained. Patient feel poor focus and difficulty completing tasks. Patient states that Adderall is helping with symptoms. Patient feels more focused. Pt feels more energy. Patient denies any headache, dry mouth, headache, chest pain. Patient denies any appetite loss. pain Pt has chronic l ow back pain. Pt denies any worsening pain. Pt denies any loss of bladder control. Pt has 7/10 pain pt failed NSAID and ultram. Pt has DDD ,Pt takes norco PRN for pain. Pt denies any saddle area paresthesia. Pt failed neurontin. pt takes norco and flexeril PRn and doing ok anxiety1 Pt has chronic a nxiety Pt finally finished valium she had from last year Pt denies any depression or any suicidal or homicidal thought Pt denies any crying spells HLP Pt has HLP. Pt i s working on diet thyroid1 Pt has low thyro id. Pt denies any dysphagia. Pt does feel fatigue with weight gain physical Pt needs annual physical pt has chronic low back pain pt denies any loss of bowel or bladder control Pt denies any saddle area paresthesia Pt takes norco PRN for pain and doing ok ,Pt failed neurontin. Pt has ADD pt doing ok with adderall. Pt has polycythemia vera and she is seeing electronics repair technician now. Pt has been gaining weight .Pt has hirsutism and she is on spironolactone and dong ok Pt has asthma and allergy. Pt takes singulair Pt denies any acute sob. pain Pt has chronic l ow back pain. Pt denies any worsening pain. Pt denies any loss of bladder control. Pt has 7/10 pain pt failed NSAID and ultram. Pt has DDD ,Pt takes norco PRN for pain. Pt denies any saddle area paresthesia. Pt failed neurontin hirsutism1 Pt has hirsutism Pt doing well with spironolactone. Pt notices improvement of extra hair sine starting spironolactone facial flushing1 pt had some den dany work one week and she was started on abx and shorty afterward, she notices face and feet swelling and some facial swelling pt denies any sob or dysphagia .Pt stopped abx two days ago. She does not remember the name of the abx. Pt denies any tongue or lip swelling or any fever ADD Patient has ADD. Patient has inattentive type. Patient feels scatterbrained. Patient feel poor focus and difficulty completing tasks. Patient states that Adderall is helping with symptoms. Patient feels more focused. Pt feels more energy. Patient denies any headache, dry mouth, headache, chest pain. Patient denies any appetite loss. ADD Patient has ADD. Patient has inattentive type. Patient feels scatterbrained. Patient feel poor focus and difficulty completing tasks. Patient states that Adderall is helping with symptoms. Patient feels more focused. Pt feels more energy. Patient denies any headache, dry mouth, headache, chest pain. Patient denies any appetite loss. pain Pt has chronic l ow back pain. Pt denies any worsening pain. Pt denies any loss of bladder control. Pt has 7/10 pain pt failed NSAID and ultram. Pt has DDD ,Pt takes norco PRN for pain. Pt denies any saddle area paresthesia. Pt failed neurontin asthma1 Pt has asthma. p t did not rock picker Asmanex Pt is not sure why and she states that her breathing is not bad and she is not interested in asmanex now. visual1 Pt wears eye gla ss and she needs referral to see the filemaker developer. Pt was told that she has some retinopathy as well. Pt denies any acute visual change. asthma1 Pt has asthma. p t could not rock picker qvar due to insurance issue. Pt feels sob frequently. Pt denies any hemoptysis. cough ADD Patient has ADD. Patient has inattentive type. Patient feels scatterbrained. Patient feel poor focus and difficulty completing tasks. Patient states that Adderall is helping with symptoms. Patient feels more focused. Pt feels more energy. Patient denies any headache, dry mouth, headache, chest pain. Patient denies any appetite loss. pain Pt has chronic l ow back pain. Pt denies any worsening pain. Pt denies any loss of bladder control. Pt has 7/10 pain pt failed NSAID and ultram. Pt has DDD ,Pt takes norco PRN for pain. Pt denies any saddle area paresthesia. Pt failed neurontin ADD Patient has ADD. Patient has inattentive type. Patient feels scatterbrained. Patient feel poor focus and difficulty completing tasks. Patient states that Adderall is helping with symptoms. Patient feels more focused. Pt feels more energy. Patient denies any headache, dry mouth, headache, chest pain. Patient denies any appetite loss. pain Pt has chronic l ow back pain. Pt denies any worsening pain. Pt denies any loss of bladder control. Pt has 7/10 pain pt failed NSAID and ultram. Pt has DDD ,Pt takes norco PRN for pain. Pt denies any saddle area paresthesia. Pt failed neurontin asthma Pt had Meth-Chol ine challenging test at pulmonary doctor and she was told that she has positive asthma Pt takes singular and she uses albuterol PRn Pt does not want to use steroid inhaler. pt states that she feels sob and wheezing almost daily neuropathy1 Pt has some neur opathy symptoms both feet for several months Pt failed neurontin Pt does not want to try lyrica. Pt states that both feet feels burning sensation and tinging when she touches them. Pt denies any redness, warmth or swelling ADD Patient has ADD. Patient has inattentive type. Patient feels scatterbrained. Patient feel poor focus and difficulty completing tasks. Patient states that Adderall is helping with symptoms. Patient feels more focused. Pt feels more energy. Patient denies any headache, dry mouth, headache, chest pain. Patient denies any appetite loss. pain Pt has chronic l ow back pain. Pt denies any worsening pain. Pt denies any loss of bladder control. Pt has 7/10 pain pt failed NSAID and ultram. Pt has DDD ,Pt takes norco PRN for pain. Pt denies any saddle area paresthesia. Pt failed neurontin ADD Patient has ADD. Patient has inattentive type. Patient feels scatterbrained. Patient feel poor focus and difficulty completing tasks. Patient states that Adderall is helping with symptoms. Patient feels more focused. Pt feels more energy. Patient denies any headache, dry mouth, headache, chest pain. Patient denies any appetite loss. pain Pt has chronic l ow back pain. Pt denies any worsening pain. Pt denies any loss of bladder control. Pt has 7/10 pain pt failed NSAID and ultram. Pt has DDD ,Pt takes norco PRN for pain. Pt denies any saddle area paresthesia. Pt failed neurontin granuloma1 Pt has chronic s ob Pt has granuloma on chest CT, Pt saw pulmonary and she supposes to do PFT and cardiac echo and she supposes to have shahana with pulmonary on 05/03 but the shahana was canceled as well the cardiac echo and PFT .Pt is not sure why the shahana was canceled. Pt states that inhaler does not help. pt also feels dizzy sometimes when she feels sob Pt denies any acute sob Pt denies any chest pain. Pt does not feel that inhaler is helping her. ADD Patient has ADD. Patient has inattentive type. Patient feels scatterbrained. Patient feel poor focus and difficulty completing tasks. Patient states that Adderall is helping with symptoms. Patient feels more focused. Pt feels more energy. Patient denies any headache, dry mouth, headache, chest pain. Patient denies any appetite loss. pain Pt has chronic l ow back pain. Pt denies any worsening pain. Pt denies any loss of bladder control. Pt has 7/10 pain pt failed NSAID and ultram. Pt has DDD ,Pt takes norco PRN for pain. Pt denies any saddle area paresthesia. Pt failed neurontin P vera1 Pt has ? p vera Pt still does not have a definitive diagnosis yet by hematology ADD Patient has ADD. Patient has inattentive type. Patient feels scatterbrained. Patient feel poor focus and difficulty completing tasks. Patient states that Adderall is helping with symptoms. Patient feels more focused. Pt feels more energy. Patient denies any headache, dry mouth, headache, chest pain. Patient denies any appetite loss. pain Pt has chronic l ow back pain. Pt denies any worsening pain. Pt denies any loss of bladder control. Pt has 7/10 pain pt failed NSAID and ultram. Pt has DDD ,Pt takes norco PRN for pain. Pt denies any saddle area paresthesia. Pt failed neurontin lung nodule1 Pt has multiple lung nodule Pt is seeing pulmonary and she will do PFT and cardiac echo. Pt denies any hemoptysis, cough fatigue1 Pt has chronic f atigue Pt will do in lab sleep study soon Pt also has ? P vera Pt had bone marrow biopsy done joesph she is still being worked up for p vera by hematology P vera1 pt may have poly cythemia vera .Pt had more blood drawn and she will have bone biopsy soon by hematology pt also has shahana with pulmonary due to granuloma on lung CT. Pt denies any sob hirustism1 Pt has mild hirs utism. Pt takes spironolactone and doing well Pt needs refill ADD Patient has ADD. Patient has inattentive type. Patient feels scatterbrained. Patient feel poor focus and difficulty completing tasks. Patient states that Adderall is helping with symptoms. Patient feels more focused. Pt feels more energy. Patient denies any headache, dry mouth, headache, chest pain. Patient denies any appetite loss. pain Pt has chronic l ow back pain. Pt denies any worsening pain. Pt denies any loss of bladder control. Pt has 7/10 pain pt failed NSAID and ultram. Pt has DDD ,Pt takes norco PRN for pain. Pt denies any saddle area paresthesia. 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 Pt also had chest Ct done which showed some granuloma and she was referred to pulmonary by hematology. Pt denies any sob or wheezing Pt denies any bone or joint pain pain Pt has chronic l ow back pain. Pt denies any worsening pain. Pt denies any loss of bladder control. Pt has 7/10 pain pt failed NSAID and ultram. Pt has DDD ,Pt takes norco PRN for pain. Pt denies any saddle area paresthesia. Pt failed neurontin ADD Patient has ADD. Patient has inattentive type. Patient feels scatterbrained. Patient feel poor focus and difficulty completing tasks. Patient states that Adderall is helping with symptoms. Patient feels more focused. Pt feels more energy. Patient denies any headache, dry mouth, headache, chest pain. Patient denies any appetite loss. ADD Patient has ADD. Patient has inattentive type. Patient feels scatterbrained. Patient feel poor focus and difficulty completing tasks. Patient states that Adderall is helping with symptoms. Patient feels more focused. Pt feels more energy. Patient denies any headache, dry mouth, headache, chest pain. Patient denies any appetite loss. pain Pt has chronic l ow back pain. Pt denies any worsening pain. Pt denies any loss of bladder control. Pt has 7/10 pain pt failed NSAID and ultram. Pt has DDD ,Pt takes norco PRN for pain. Pt denies any saddle area paresthesia. Pt failed neurontin polycythemia1 Pt has polycythe jose Pt saw hematology and had more lab work pain pt c/o intermitt ent let hand swelling with numbness and tingling. Pt denies any weakness pt feels left hand stiffness sometimes pt denies any elbow or hand issue. Pt denies any night time issue constipation1 Pt has chronic c onstipation Pt could not tolerate linzess. Pt feels more tired with linzess with non blood diarrhea constipation1 Pt has chronic c onstipation Pt denies any abd pain Pt denies any blood in stool. pt had benign colonoscopy 2018. Pt has been having constipation issue for years Pt has BM 1-2 per week and she has hard stool every time Pt denies any diarrhea or blood in stool pt denies any abd pain pt tried metamucil and also other fiber and vitamins but has not helped. ADD Patient has ADD. Patient has inattentive type. Patient feels scatterbrained. Patient feel poor focus and difficulty completing tasks. Patient states that Adderall is helping with symptoms. Patient feels more focused. Pt feels more energy. Patient denies any headache, dry mouth, headache, chest pain. Patient denies any appetite loss. pain Pt has chronic l ow back pain. Pt denies any worsening pain. Pt denies any loss of bladder control. Pt has 7/10 pain pt failed NSAID and ultram. Pt has DDD ,Pt takes norco PRN for pain. Pt denies any saddle area paresthesia. Pt failed neurontin physical Pt needs annual physical pt has chronic low back pain pt denies any loss of bowel or bladder control Pt denies any saddle area paresthesia Pt takes norco PRN for pain and doing ok ,Pt failed neurontin. Pt has ADD pt doing ok with adderall. Pt has mild HLP and proteinuria, Pt has polycythemia and borderline high platelet. Pt denies any bleeding or bruising Pt c/o bilateral eye floaters with poor vision Pt has been seeing filemaker developer and was told that she has nerve damage and she may lose her eyesight anytime Pt is concerned. ADD Patient has ADD. Patient has inattentive type. Patient feels scatterbrained. Patient feel poor focus and difficulty completing tasks. Patient states that Adderall is helping with symptoms. Patient feels more focused. Pt feels more energy. Patient denies any headache, dry mouth, headache, chest pain. Patient denies any appetite loss. pain Pt has chronic l ow back pain. Pt denies any worsening pain. Pt denies any loss of bladder control. Pt has 7/10 pain pt failed NSAID and ultram. Pt has DDD ,Pt takes norco PRN for pain. Pt denies any saddle area paresthesia. Pt failed neurontin hand pain1 pt c/o intermitt ent let hand swelling without numbness and tingling. Pt denies any weakness pt feels left hand stiffness sometimes pt denies any elbow or hand issue. Pt denies any night time issue hirsutism1 pt is noncomplia nt with spironolactone. Pt stopped again hand swelling1 Pt notices acute onset of rash and swelling left hand 3 weeks ago and she denies any throat swelling, sob or dysphagia. Pt did have some small itching bumps on left hand as well. Pt went to er and she received steroid injection and some oral prednisone and her hand symptoms resolved. ADD Patient has ADD. Patient has inattentive type. Patient feels scatterbrained. Patient feel poor focus and difficulty completing tasks. Patient states that Adderall is helping with symptoms. Patient feels more focused. Pt feels more energy. Patient denies any headache, dry mouth, headache, chest pain. Patient denies any appetite loss. pain Pt has chronic l ow back pain. Pt denies any worsening pain. Pt denies any loss of bladder control. Pt has 7/10 pain pt failed NSAID and ultram. Pt has DDD ,Pt takes norco PRN for pain. Pt denies any saddle area paresthesia. Pt failed neurontin pain Pt has chronic l ow back pain. Pt denies any worsening pain. Pt denies any loss of bladder control. Pt has 7/10 pain pt failed NSAID and ultram. Pt has DDD ,Pt takes norco PRN for pain. Pt denies any saddle area paresthesia. Pt failed neurontin ADd Patient has ADD. Patient has inattentive type. Patient feels scatterbrained. Patient feel poor focus and difficulty completing tasks. Patient states that Adderall is helping with symptoms. Patient feels more focused. Pt feels more energy. Patient denies any headache, dry mouth, headache, chest pain. Patient denies any appetite loss. hirsutism1 Pt has hirsutism . Pt started spironolactone and she notices improvement of chin hair. pt has not done lab yet . hirsutism1 Pt has chronic h irsutism around her chin. Pt used to take spironolactone. Pt has to shave under her chin all the time. Pt denies any acne. Pt no longer has period pain Pt has chronic l ow back pain. Pt denies any worsening pain. Pt denies any loss of bladder control. Pt has 7/10 pain pt failed NSAID and ultram. Pt has DDD ,Pt takes norco PRN for pain. Pt denies any saddle area paresthesia. Pt wants TENS unit and back brace ADD Patient has ADD. Patient has inattentive type. Patient feels scatterbrained. Patient feel poor focus and difficulty completing tasks. Patient states that Adderall is helping with symptoms. Patient feels more focused. Pt feels more energy. Patient denies any headache, dry mouth, headache, chest pain. Patient denies any appetite loss. pain Pt has chronic l ow back pain. Pt denies any worsening pain. Pt denies any loss of bladder control. Pt has 7/10 pain pt failed NSAID and ultram. Pt has DDD ,Pt takes norco PRN for pain. Pt denies any saddle area paresthesia. ADD Patient has ADD. Patient has inattentive type. Patient feels scatterbrained. Patient feel poor focus and difficulty completing tasks. Patient states that Adderall is helping with symptoms. Patient feels more focused. Pt feels more energy. Patient denies any headache, dry mouth, headache, chest pain. Patient denies any appetite loss. weight gain1 Pt gained a lot of weight recently. Pt did not report accurate weight on tele visit. Pt is not very active HLP Pt has HLP Pt liu s not been on any diet pain Pt has chronic l ow back pain. Pt denies any worsening pain. Pt denies any loss of bladder control. Pt has 7/10 pain pt failed NSAID and ultram. Pt has DDD ,Pt takes norco PRN for pain. Pt denies any saddle area paresthesia. ADD Patient has ADD. Patient has inattentive type. Patient feels scatterbrained. Patient feel poor focus and difficulty completing tasks. Patient states that Adderall is helping with symptoms. Patient feels more focused. Pt feels more energy. Patient denies any headache, dry mouth, headache, chest pain. Patient denies any appetite loss. ADD Patient has ADD. Patient has inattentive type. Patient feels scatterbrained. Patient feel poor focus and difficulty completing tasks. Patient states that Adderall is helping with symptoms. Patient feels more focused. Pt feels more energy. Patient denies any headache, dry mouth, headache, chest pain. Patient denies any appetite loss. asthma1 Pt has allergy a nd asthma. pt notices worsening allergy symptoms lately with frequent wheezing and sob Pt denies any hemoptysis or cough. Pt takes OTC anti-histamines. pain Pt has chronic l ow back pain. Pt denies any worsening pain. Pt denies any loss of bladder control. Pt has 7/10 pain pt failed NSAID and ultram. Pt has DDD ,Pt takes norco PRN for pain. Pt denies any saddle area paresthesia. ADD Patient has ADD. Patient has inattentive type. Patient feels scatterbrained. Patient feel poor focus and difficulty completing tasks. Patient states that Adderall is helping with symptoms. Patient feels more focused. Pt feels more energy. Patient denies any headache, dry mouth, headache, chest pain. Patient denies any appetite loss. pain Pt has chronic l ow back pain. Pt denies any worsening pain. Pt denies any loss of bladder control. Pt has 7/10 pain pt failed NSAID and ultram. Pt has DDD ,Pt takes norco PRN for pain. Pt denies any saddle area paresthesia. pain Pt has chronic l ow back pain Pt denies any worsening pain Pt denies any loss of bladder control. Pt has 7/10 pain pt failed NSAID and ultram. Pt has DDD ,Pt takes norco PRN for pain but her pain is not well controlled . Pt has been off neurontin since it does not help her pain. Pt nicholas any saddle area paresthesia ADD Patient has ADD. Patient has inattentive type. Patient feels scatterbrained. Patient feel poor focus and difficulty completing tasks. Patient states that Adderall is helping with symptoms. Patient feels more focused. Pt feels more energy. Patient denies any headache, dry mouth, headache, chest pain. Patient denies any appetite loss. sick Pt c/o productiv e cough with green phlegm x 1 week Pt denies any sob or chest pain Pt denies any sore throat. Pt has sinus congestion. pt denies any fever. Pt denies any sick contact pain Pt has chronic l ow back pain. Pt denies any worsening pain. Pt denies any loss of bladder control. Pt has 7/10 pain pt failed NSAID and ultram. Pt has DDD ,Pt takes norco PRN for pain. Pt denies any saddle area paresthesia. ADD Patient has ADD. Patient has inattentive type. Patient feels scatterbrained. Patient feel poor focus and difficulty completing tasks. Patient states that Adderall is helping with symptoms. Patient feels more focused. Pt feels more energy. Patient denies any headache, dry mouth, headache, chest pain. Patient denies any appetite loss. pain Pt has chronic l ow back pain Pt denies any worsening pain Pt denies any loss of bladder control. Pt has 7/10 pain pt failed NSAID and ultram. Pt has DDD ,Pt takes norco PRN for pain but her pain is not well controlled . Pt has mild neuropathy symptoms but she tried and failed neurontin Pt is off neurontin ADD Patient has ADD. Patient has inattentive type. Patient feels scatterbrained. Patient feel poor focus and difficulty completing tasks. Patient states that Adderall is helping with symptoms. Patient feels more focused. Pt feels more energy. Patient denies any headache, dry mouth, headache, chest pain. Patient denies any appetite loss. anxiety1 Pt has anxiety P t denies any depression or any suicidal thought, Pt denies any crying spells. Pt has been using marijuana for her anxiety and she weaned herself off valium and doing ok pain Pt has chronic l ow back pain Pt denies any worsening pain Pt denies any loss of bladder control. Pt has 7/10 pain pt failed NSAID and ultram. Pt has DDD ,Pt takes norco PRN for pain but her pain is not well controlled . Pt has mild neuropathy symptoms and she took neurontin PRN only since last month. Pt states that neurontin BID did not help very much for her pain ADD Patient has ADD. Patient has inattentive type. Patient feels scatterbrained. Patient feel poor focus and difficulty completing tasks. Patient states that Adderall is helping with symptoms. Patient feels more focused. Pt feels more energy. Patient denies any headache, dry mouth, headache, chest pain. Patient denies any appetite loss. anxiety1 Pt has anxiety P t denies any depression or any suicidal thought, Pt denies any crying spells Pt takes valium and doing ok. Pt failed SSRIs. Pt wants to try medical marijuana for her anxiety and wean off valium pain Pt has chronic l ow back pain Pt denies any worsening pain Pt denies any loss of bladder control. Pt has 7/10 pain pt failed NSAID and ultram. Pt has DDD ,Pt takes norco PRN for pain but her pain is not well controlled . Pt has mild neuropathy symptoms and she took neurontin PRN only since last month. Pt states that neurontin PRN seems to help with pain ADD Patient has ADD. Patient has inattentive type. Patient feels scatterbrained. Patient feel poor focus and difficulty completing tasks. Patient states that Adderall is helping with symptoms. Patient feels more focused. Pt feels more energy. Patient denies any headache, dry mouth, headache, chest pain. Patient denies any appetite loss. anxiety1 Pt has anxiety P t denies any depression or any suicidal thought, Pt denies any crying spells Pt takes valium and doing ok. Pt failed SSRIs anxiety1 Pt has anxiety P t denies any depression or any suicidal thought, Pt denies any crying spells Pt takes valium and doing ok. Pt failed SSRIs pain Pt has chronic l ow back pain Pt denies any worsening pain Pt denies any loss of bladder control. Pt has 7/10 pain pt failed NSAID and ultram. Pt has DDD ,Pt takes norco PRN for pain and doing ok. Pt c/o sciatica and leg numbness Pt denies any saddle area paresthesia. Pt failed injection. pt wants to try neurontin again. She really did not give neurontin a good chance last time ADD Patient has ADD. Patient has inattentive type. Patient feels scatterbrained. Patient feel poor focus and difficulty completing tasks. Patient states that Adderall is helping with symptoms. Patient feels more focused. Pt feels more energy. Patient denies any headache, dry mouth, headache, chest pain. Patient denies any appetite loss. pain Pt has chronic l ow back pain Pt denies any worsening pain Pt denies any loss of bladder control. Pt has 7/10 pain pt failed NSAID and ultram. Pt has DDD ,Pt takes norco PRN for pain and doing ok. Pt failed neurontin. anxiety1 Pt has anxiety P t denies any depression or any suicidal thought, Pt denies any crying spells Pt takes valium and doing ok. Pt failed SSRIs ADD Patient has ADD. Patient has inattentive type. Patient feels scatterbrained. Patient feel poor focus and difficulty completing tasks. Patient states that Adderall is helping with symptoms. Patient feels more focused. Pt feels more energy. Patient denies any headache, dry mouth, headache, chest pain. Patient denies any appetite loss. anxiety1 Pt has anxiety P t denies any depression or any suicidal thought, Pt denies any crying spells Pt takes valium and doing ok. Pt failed SSRIs pain Pt has chronic l ow back pain Pt denies any worsening pain Pt denies any loss of bladder control. Pt has 7/10 pain pt failed NSAID and ultram. Pt has DDD ,Pt takes norco PRN for pain and doing ok. Pt failed neurontin. Pt tried water therapy in the past which helped her low back pain Pt wants to get a therapy pool and installed in her basement and she wants me to give her an order for tax purposes. ADD Patient has ADD. Patient has inattentive type. Patient feels scatterbrained. Patient feel poor focus and difficulty completing tasks. Patient states that Adderall is helping with symptoms. Patient feels more focused. Pt feels more energy. Patient denies any headache, dry mouth, headache, chest pain. Patient denies any appetite loss. anxiety1 Pt has anxiety P t denies any depression or any suicidal thought, Pt denies any crying spells Pt takes valium and doing ok. Pt failed SSRIs pain Pt has chronic l ow back pain Pt denies any worsening pain Pt denies any loss of bladder control. Pt has 7/10 pain pt failed NSAID and ultram. Pt has DDD ,Pt takes norco PRN for pain and doing ok. Pt failed neurontin. Pt tried water therapy in the past which helped her low back pain Pt wants to get a therapy pool and installed in her basement and she wants me to give her an order for tax purposes. ADD Patient has ADD. Patient has inattentive type. Patient feels scatterbrained. Patient feel poor focus and difficulty completing tasks. Patient states that Adderall is helping with symptoms. Patient feels more focused. Pt feels more energy. Patient denies any headache, dry mouth, headache, chest pain. Patient denies any appetite loss. ADD Patient has ADD. Patient has inattentive type. Patient feels scatterbrained. Patient feel poor focus and difficulty completing tasks. Patient states that Adderall is helping with symptoms. Patient feels more focused. Pt feels more energy. Patient denies any headache, dry mouth, headache, chest pain. Patient denies any appetite loss. pain Pt has chronic l ow back pain Pt denies any worsening pain Pt denies any loss of bladder control. Pt has 7/10 pain pt failed NSAID and ultram. Pt has DDD ,Pt takes norco PRN for pain and doing ok. Pt failed neurontin. Pt got a TENS from boyfriend and she is using it at home now sinus1 Pt has chronic s inus allergy symptoms. Pt takes anti-histamine and singulair and she does not want flonase .Pt c/o acute onset of purulent sinus drainage, sinus pain for one week pt wants abx. Pt denies any fever or cough or sob anxiety1 Pt has anxiety P t denies any depression or any suicidal thought, Pt denies any crying spells Pt takes valium and doing ok. Pt failed SSRIs pain Pt has chronic l ow back pain Pt denies any worsening pain Pt denies any loss of bladder control. Pt has 7/10 pain pt failed NSAID and ultram. Pt has DDD ,Pt takes norco PRN for pain and doing ok. Pt failed neurontin. pt wants TENS unit ADD Patient has ADD. Patient has inattentive type. Patient feels scatterbrained. Patient feel poor focus and difficulty completing tasks. Patient states that Adderall is helping with symptoms. Patient feels more focused. Pt feels more energy. Patient denies any headache, dry mouth, headache, chest pain. Patient denies any appetite loss. anxiety1 Pt has anxiety P t denies any depression or any suicidal thought, Pt denies any crying spells Pt takes valium and doing ok. Pt failed SSRIs HLP Pt has HLP .Pt i s not on any diet amenorrhea1 Pt has not been having period. .Hormone showed that she is postmenopausal ear pain1 pt c/o acute ons et of right ear pain since one week ago after swimming several times at [employer] Pt denies any drainage. Pt notices muffled sound from right ear and she feels something swelling. itching1 Pt notices diffu se itching with small follicular type of rash since one week ago after swimming at the [employer]. Pt denies any sick contact or fever pain Pt has chronic l ow back pain Pt denies any worsening pain Pt denies any loss of bladder control. Pt has 7/10 pain pt failed NSAID and ultram. Pt has DDD ,Pt takes norco PRN for pain and doing ok. Pt failed neurontin anxiety1 Pt has anxiety P t denies any depression or any suicidal thought, Pt denies any crying spells Pt takes valium and doing ok. Pt failed SSRIs ADD Patient has ADD. Patient has inattentive type. Patient feels scatterbrained. Patient feel poor focus and difficulty completing tasks. Patient states that Adderall is helping with symptoms. Patient feels more focused. Pt feels more energy. Patient denies any headache, dry mouth, headache, chest pain. Patient denies any appetite loss. ADD Patient has ADD. Patient has inattentive type. Patient feels scatterbrained. Patient feel poor focus and difficulty completing tasks. Patient states that Adderall is helping with symptoms. Patient feels more focused. Pt feels more energy. Patient denies any headache, dry mouth, headache, chest pain. Patient denies any appetite loss. pain Pt has chronic l ow back pain Pt denies any worsening pain Pt denies any loss of bladder control. Pt has 7/10 pain pt failed NSAID and ultram. Pt has DDD ,Pt takes norco PRN for pain and doing ok. Pt wants to apply for handicap parking permit due to back pain anxiety Pt has anxiety P t denies any depression or any suicidal thought, Pt denies any crying spells Pt takes valium and doing ok. Pt failed SSRIs anxiety1 Pt has anxiety P t denies any depression or any suicidal thought, Pt denies any crying spells Pt takes valium and doing ok. Pt failed SSRIs ADD Patient has ADD. Patient has inattentive type. Patient feels scatterbrained. Patient feel poor focus and difficulty completing tasks. Patient states that Adderall is helping with symptoms. Patient feels more focused. Pt feels more energy. Patient denies any headache, dry mouth, headache, chest pain. Patient denies any appetite loss. pain Pt has chronic l ow back pain Pt denies any worsening pain Pt denies any loss of bladder control. Pt has 7/10 pain pt failed NSAID and ultram. Pt has DDD ,Pt takes norco PRN for pain and doing ok. Pt wants to apply for handicap parking permit due to back pain ADD Patient has ADD. Patient has inattentive type. Patient feels scatterbrained. Patient feel poor focus and difficulty completing tasks. Patient states that Adderall is helping with symptoms. Patient feels more focused. Pt feels more energy. Patient denies any headache, dry mouth, headache, chest pain. Patient denies any appetite loss. pain Pt has chronic l ow back pain Pt denies any worsening pain Pt denies any loss of bladder control. Pt has 7/10 pain pt failed NSAID and ultram. Pt has DDD ,Pt takes norco PRN for pain and doing ok anxiety1 Pt has anxiety P t denies any depression or any suicidal thought, Pt denies any crying spells Pt takes valium and doing ok. Pt failed SSRIs ADD Patient has ADD. Patient has inattentive type. Patient feels scatterbrained. Patient feel poor focus and difficulty completing tasks. Patient states that Adderall is helping with symptoms. Patient feels more focused. Pt feels more energy. Patient denies any headache, dry mouth, headache, chest pain. Patient denies any appetite loss. pain Pt has chronic l ow back pain Pt denies any worsening pain Pt denies any loss of bladder control. Pt has 7/10 pain pt failed NSAID and ultram. Pt has DDD ,Pt takes norco PRN for pain and doing ok anxiety1 Pt has anxiety P t denies any depression or any suicidal thought, Pt denies any crying spells Pt takes valium and doing ok. Pt failed SSRIs asthma1 pt has allergy a nd asthma pt takes singulair daily pt uses albuterol 1-2 per week for wheezing and sob Pt denies any hemoptysis. anxiety1 Pt has anxiety P t denies any depression or any suicidal thought, Pt denies any crying spells Pt takes valium and doing ok. Pt failed SSRIs pain Pt has chronic l ow back pain Pt denies any worsening pain Pt denies any loss of bladder control. Pt has 7/10 pain pt failed NSAID and ultram. Pt has DDD ,Pt takes norco PRN for pain and doing ok ADD Patient has ADD. Patient has inattentive type. Patient feels scatterbrained. Patient feel poor focus and difficulty completing tasks. Patient states that Adderall is helping with symptoms. Patient feels more focused. Pt feels more energy. Patient denies any headache, dry mouth, headache, chest pain. Patient denies any appetite loss. pain Pt has chronic l ow back pain Pt denies any worsening pain Pt denies any loss of bladder control. Pt has 7/10 pain pt failed NSAID and ultram. Pt has DDD ,Pt takes norco PRN for pain and doing ok ear pain1 Pt c/oo right ea r pain radiating down to right side of jaw and throat area for two days Pt denies any fever pt denies any dysphagia. Pt denies any hearing loss or drainage. anxity1 Pt has anxiety P t denies any depression or any suicidal thought, Pt denies any crying spells Pt takes valium and doing ok. Pt failed SSRIs ADD Patient has ADD. Patient has inattentive type. Patient feels scatterbrained. Patient feel poor focus and difficulty completing tasks. Patient states that Adderall is helping with symptoms. Patient feels more focused. Pt feels more energy. Patient denies any headache, dry mouth, headache, chest pain. Patient denies any appetite loss. irregular period1 Pt has irregul ar period. Pt has not had period for two months and then she restarted two weeks. Pt wonders if she is going through the changes ADD Patient has ADD. Patient has inattentive type. Patient feels scatterbrained. Patient feel poor focus and difficulty completing tasks. Patient states that Adderall is helping with symptoms. Patient feels more focused. Pt feels more energy. Patient denies any headache, dry mouth, headache, chest pain. Patient denies any appetite loss. pain Pt has chronic l ow back pain Pt denies any worsening pain Pt denies any loss of bladder control. Pt has 7/10 pain pt failed NSAID and ultram. Pt has DDD ,Pt takes norco PRN for pain and doing ok anxiety1 Pt has anxiety P t denies any depression or any suicidal thought, Pt denies any crying spells Pt takes valium and doing ok. Pt failed SSRIs HLP Pt has HLP, Pt h as not done lab yet. Pt denies any myalgia abd pain1 Pt c/o acute ons et of periumbilical abd pain occurring 30 mins ago lasted for 5 mins and went away. Pt denies any nausea, vomiting, diarrhea, blood in stool. Pt denies any fever or appetite loss. Pt states that pain feels crampy and sharp both. Pt denies any pain currently. Pt denies any urinary symptoms ADD Patient has ADD. Patient has inattentive type. Patient feels scatterbrained. Patient feel poor focus and difficulty completing tasks. Patient states that Adderall is helping with symptoms. Patient feels more focused. Pt feels more energy. Patient denies any headache, dry mouth, headache, chest pain. Patient denies any appetite loss. pain Pt has chronic l ow back pain Pt denies any worsening pain Pt denies any loss of bladder control. Pt has 7/10 pain pt failed NSAID and ultram. Pt has DDD ,Pt takes norco PRN for pain and doing ok anxiety1 Pt has anxiety P t denies any depression or any suicidal thought, Pt denies any crying spells Pt takes valium and doing ok. Pt failed SSRIs sob Pt has intermitt ent allergy and sob. Pt denies any hemoptysis, cough. Pt uses ventolin PRn. Pt uses on average 1-2 per week. Pt has asthma. anxiety1 Pt has anxiety P t denies any depression or any suicidal thought, Pt denies any crying spells Pt takes valium and doing ok. Pt failed SSRIs pain Pt has chronic l ow back pain Pt denies any worsening pain Pt denies any loss of bladder control. Pt has 7/10 pain pt failed NSAID and ultram. Pt has DDD ,Pt takes norco PRN for pain and doing ok ADD Patient has ADD. Patient has inattentive type. Patient feels scatterbrained. Patient feel poor focus and difficulty completing tasks. Patient states that Adderall is helping with symptoms. Patient feels more focused. Pt feels more energy. Patient denies any headache, dry mouth, headache, chest pain. Patient denies any appetite loss. ADD Patient has ADD. Patient has inattentive type. Patient feels scatterbrained. Patient feel poor focus and difficulty completing tasks. Patient states that Adderall is helping with symptoms. Patient feels more focused. Pt feels more energy. Patient denies any headache, dry mouth, headache, chest pain. Patient denies any appetite loss. anxiety1 Pt has anxiety P t denies any depression or any suicidal thought, Pt denies any crying spells Pt takes valium and doing ok. Pt failed SSRIs pain Pt has chronic l ow back pain Pt denies any worsening pain Pt denies any loss of bladder control. Pt has 7/10 pain pt failed NSAID and ultram. Pt has DDD ,Pt takes norco PRN for pain and doing ok HLP Pt has HLP .Pt i s working on low fat and low carb diet hemorrhoid1 Pt has internal hemorrhoid Pt denies any rectal bleeding Pt got a letter from [facility] reminding her about some kind of procedure. Pt is not sure what she need Pt denies any rectal pain .Pt denies any palpable external hemorrhoid. physical Pt needs annual physical Pt has chronic low back pain Pt has sciatica and leg numbness, but not worse Pt denies any loss of bladder control. PT has ADD Pt doing ok with adderall Pt has chronic anxiety Pt denies any depression or any suicidal thought Pt takes valium and doing ok Pt has allergy and asthma and she takes singulair and zyrtec and she uses ventolin 1-2 per week Pt denies any acute sob .Pt states that her low back muscle has been tight and she wants to try other meds than flexeril. ADD Patient has ADD. Patient has inattentive type. Patient feels scatterbrained. Patient feel poor focus and difficulty completing tasks. Patient states that Adderall is helping with symptoms. Patient feels more focused. Pt feels more energy. Patient denies any headache, dry mouth, headache, chest pain. Patient denies any appetite loss. pain Pt has chronic l ow back pain Pt denies any worsening pain Pt denies any loss of bladder control. Pt has 7/10 pain pt failed NSAID and ultram. Pt has DDD ,Pt takes norco PRN for pain and doing ok anxiety1 Pt has anxiety P t denies any depression or any suicidal thought, Pt denies any crying spells Pt takes valium and doing ok. Pt failed SSRIs ADD Patient has ADD. Patient has inattentive type. Patient feels scatterbrained. Patient feel poor focus and difficulty completing tasks. Patient states that Adderall is helping with symptoms. Patient feels more focused. Pt feels more energy. Patient denies any headache, dry mouth, headache, chest pain. Patient denies any appetite loss. pain1 Pt has chronic l ow back pain Pt denies any worsening pain Pt denies any loss of bladder control. Pt has 7/10 pain pt failed NSAID and ultram. Pt has DDD ,Pt takes norco PRN for pain and doing ok anxiety1 Pt has anxiety P t denies any depression or any suicidal thought, Pt denies any crying spells Pt takes valium and doing ok. Pt failed SSRIs pain Pt has chronic l ow back pain Pt denies any worsening pain Pt denies any loss of bladder control. Pt has 7/10 pain pt failed NSAID and ultram. Pt has DDD ,Pt takes norco PRN for pain and doing ok anxiety1 Pt has anxiety P t denies any depression or any suicidal thought, Pt denies any crying spells Pt takes valium and doing ok. Pt failed SSRIs asthma1 Pt has allergy a nd asthma. Pt supposes to take zyrtec and singulair daily but she does not take them daily ,Pt does not want to use steroid inhaler Pt states that she feels sob and wheezing almost daily. Pt does have more dry cough recently Pt denies any fever or travel fatigue1 Patient has ADD. Patient has inattentive type. Patient feels scatterbrained. Patient feel poor focus and difficulty completing tasks. Patient states that Adderall is helping with symptoms. Patient feels more focused. Pt feels more energy. Patient denies any headache, dry mouth, headache, chest pain. Patient denies any appetite loss. fatigue1 Patient has ADD. Patient has inattentive type. Patient feels scatterbrained. Patient feel poor focus and difficulty completing tasks. Patient states that Adderall is helping with symptoms. Patient feels more focused. Pt feels more energy. Patient denies any headache, dry mouth, headache, chest pain. Patient denies any appetite loss. her sleep study is negative. HLP Pt has HLP Pt is working on low fat and low carb diet anxiety1 Pt has anxiety P t denies any depression or any suicidal thought, Pt denies any crying spells Pt takes valium and doing ok. Pt failed SSRIs pain Pt has chronic l ow back pain Pt denies any worsening pain Pt denies any loss of bladder control. Pt has 7/10 pain pt failed NSAID and ultram. Pt has DDD ,Pt takes norco PRN for pain and doing ok anxiety1 Pt has anxiety P t denies any depression or any suicidal thought, Pt denies any crying spells Pt takes valium and doing ok. Pt failed SSRIs pain Pt has chronic l ow back pain Pt denies any worsening pain Pt denies any loss of bladder control. Pt has 7/10 pain pt failed NSAID and ultram. Pt has DDD ,Pt takes norco PRN for pain and doing ok ADD Patient has ADD. Patient has inattentive type. Patient feels scatterbrained. Patient feel poor focus and difficulty completing tasks. Patient states that Adderall is helping with symptoms. Patient feels more focused. Pt feels more energy. Patient denies any headache, dry mouth, headache, chest pain. Patient denies any appetite loss. anxiety1 Pt has anxiety , Pt denies any depression or any suicidal thought .Pt denies any crying spells pT takes valium and doing ok Pt failed SSRIs fatigue Additional infor mation: Pt has chronic fatigue and ADD. Pt doing ok with adderall. pain Pt has chronic l ow back pain Pt denies any worsening pain Pt denies any loss of bladder control. Pt has 7/10 pain pt failed NSAID and ultram. Pt takes norco PRN for pain and doing ok anxiety1 Pt has anxiety , Pt denies any depression or any suicidal thought .Pt denies any crying spells pT takes valium and doing ok Pt failed SSRIs fatigue1 Pt has chronic f atigue and ADD. Pt doing ok with adderall. pain Pt has chronic l ow back pain Pt denies any worsening pain Pt denies any loss of bladder control. Pt has 7/10 pain pt failed NSAID and ultram. Pt takes norco PRN for pain and doing ok chronic pain Pt has chronic l ow back pain Pt denies any worsening pain Pt denies any loss of bladder control. Pt has 7/10 pain pt failed NSAID and ultram. Pt has DDD ,Pt takes norco PRN for pain and doing ok ADD Patient has ADD. Patient has inattentive type. Patient feels scatterbrained. Patient feel poor focus and difficulty completing tasks. Patient states that Adderall is helping with symptoms. Patient feels more focused. Pt feels more energy. Patient denies any headache, dry mouth, headache, chest pain. Patient denies any appetite loss. anxiety1 Pt has anxiety P t denies any depression or any suicidal thought, Pt denies any crying spells Pt takes valium and doing ok. Pt failed SSRIs anxiety1 Pt has anxiety P t denies any depression or any suicidal thought, Pt denies any crying spells Pt takes valium and doing ok fatigue1 Patient has ADD and chronic fatigue. Patient has inattentive type. Patient feels scatterbrained. Patient feel poor focus and difficulty completing tasks. Patient states that Adderall is helping with symptoms. Patient feels more focused. Pt feels more energy. Patient denies any headache, dry mouth, headache, chest pain. Patient denies any appetite loss. pt does snore and she wakes up in the morning and feels fatigue and throughout the day pain1 Pt has chronic l ow back pain Pt denies any worsening pain Pt denies any loss of bladder control. Pt has 7/10 pain pt failed NSAID and ultram ADD Patient has ADD. Patient has inattentive type. Patient feels scatterbrained. Patient feel poor focus and difficulty completing tasks. Patient states that Adderall is helping with symptoms. Patient feels more focused. Pt feels more energy. Patient denies any headache, dry mouth, headache, chest pain. Patient denies any appetite loss. HTN Pt has intermitt ent HTn pt also has glaucoma. Pt is seeing eye doctor now. Pt denies any headache or chest pain. anxiety1 Pt has anxiety P t denies any depression or any suicidal thought, Pt denies any crying spells Pt takes valium and doing ok chronic pain1 Pt has chronic l ow back pain Pt denies any worsening pain Pt denies any loss of bladder control. Pt has 7/10 pain pt failed NSAID and ultram asthma1 Pt has asthma an d allergy. Pt is taking zyrtec. Pt states that qvar never went through so she did not get it. Pt states that her breathing is ok now and she does not want to try qvar anymore. Pt denies any sob or wheezing ADD Pt has add, inat tentive type Pt doing ok with adderall. Pt denies any appetite loss, palpitation. Pt feels more focused. asthma1 Pt has asthma an d allergy Pt has worsening symptoms during fall season Pt has sinus congestion, itching eyes, mild dry cough and wheezing Pt uses ventolin daily, singulair, cromolyn, which helps. Pt still needs more help on that. Pt denies any acute sob. pt denies any calf pain Pt denies any recent travel or bedrest chronic pain1 Pt has chronic l ow back pain Pt denies any worsening pain Pt denies any loss of bladder control. Pt has 7/10 pain pt failed NSAID and ultram anxiety1 Pt has anxiety P t denies any depression or any suicidal thought, Pt denies any crying spells Pt takes valium and doing ok anxiety1 Pt has chronic a nxiety. Pt denies any depression or any suicidal thought. Pt takes valium PRN and doing ok. 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 Patient complained of mild sciatica with leg numbness and tingling. Patient denies any loss of bowel bladder control. Patient failed NSAID and tramadol. Patient has 6 out of 10 pain daily. Patient complained of sharp pain. Patient denies any worsening pain. ADD Patient has ADD. Patient has inattentive type. Patient feels scatterbrained. Patient feel poor focus and difficulty completing tasks. Patient states that Adderall is helping with symptoms. Patient feels more focused. Pt feels more energy. Patient denies any headache, dry mouth, headache, chest pain. Patient denies any appetite loss. ADD Pt has add, inat tentive type Pt doing ok with adderall. Pt denies any appetite loss, palpitation. Pt feels more focused. chronic pain1 Pt has chronic l ow back pain Pt denies any worsening pain Pt denies any loss of bladder control. Pt has 7/10 pain pt failed NSAID and ultram anxiety1 Pt has anxiety P t denies any depression or any suicidal thought, Pt denies any crying spells Pt takes valium and doing ok allergy1 Pt has chronic s inus allergy with itchy eyes. Pt wants refill of singulair and also eye drop. pt denies any eye pain or vision loss. Pt does not want nasal spray. Pt failed OTC anti histamine. Pt denies any purulent sinus drainage or sore throat or cough. pt denies any wheezing and she has not needed to use albuterol for a while fatigue1 Pt snores and sh e feels fatigue and she still has not done sleep study yet cough1 Pt has persisten t productive coughing with yellow phlegm for one week. Pt did not think singulair helped. Pt uses ventolin PRN and she has been using ventolin 1-2 per week since feeling sick recently Pt usually does not use ventolin at all. Pt denies any chest pain or hemoptysis anxiety1 Pt has chronic a nxiety. Pt denies any depression or any suicidal thought. Pt takes valium PRN and doing ok. 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 Patient complained of mild sciatica right leg numbness and tingling. Patient denies any loss of bowel bladder control. Patient failed NSAID and tramadol. Patient has 6 out of 10 pain daily. Patient complained of sharp pain. Patient denies any worsening pain. ADD1 Patient has ADD. Patient has inattentive type. Patient feels scatterbrained. Patient feel poor focus and difficulty completing tasks. Patient states that Adderall is helping with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 Pt denies any abd pain or any appetite loss lumbago Pt has chronic L BP. Pt denies any loss of bowel or bladder control. Pt has sciatica. Pt has leg numbness. Pt states that her pain is constant and persistent Pt has 7/10 pain daily Anxiety The patient pres ents with anxious/fearful thoughts but denies fatigue. The patient denies any headache and vomiting. Additional information: Pt has chronic anxiety. Pt denies any depression or any suicidal thought. Pt takes valuim and doing ok. ADD Pt has ADD. Pt t akes adderall. Pt denies any abd pain HTN PT has HTN. Pt i s stressed out with family sitation Pt denies any chest pain or headache back pain Additional infor mation: Pt has chronic low back pain. Pt denies any loss of bowel or bladder control. ADD Pt has ADD Pt do ing ok. Anxeity Pt has chronic a nxiety. Pt denies any depression or any suicidal thought Pt takes valium ADD Pt has ADD Pt de nies any abd pain or any appetite loss Anxiety Additional infor mation: Pt has chronic anxiety. PT denies any depression or any suicdial thought. Pt takes valium. lumbago Pt has chornic L BP. Pt denies any loss of bowel or bladder control back pain Additional infor mation: Pt has chronic LBP Pt denies any loss of bowel or bladder control. ADD Pt has ADD. Pt t akes adderall. Pt denies any abd pain or any appetite loss Anxiety Additional infor mation: Pt has chronic anxiety. Pt denies any depression or any suicidal thought, Pt takes valium. Pt doing ok. Instructions Date Instruction Additional Infor mation Follow a low sodium diet. Relate d to Essential (primary) hypertension Special diet education Related t o Body mass index (BMI) 36.0-36.9, adult Increase activity. Related to Es sential (primary) hypertension Special diet education Related t o Body mass index (BMI) 36.0-36.9, adult Increase physical activity Relat ed to Asthma Weight management Related to Ast hma Special diet education Related t o Body mass index (BMI) 35.0-35.9, adult Increase physical activity Relat ed to Chronic pain syndrome Weight management Related to Chr onic pain syndrome Special diet education Related t o Body mass index (BMI) 36.0-36.9, adult Increase physical activity Relat ed to Attention deficit Weight management Related to Att ention deficit Weight management Related to Chr onic pain syndrome Weight management Related to Chr onic pain syndrome Special diet education Related t o Body mass index (BMI) 36.0-36.9, adult Special diet education Related t o Body mass index (BMI) 36.0-36.9, adult Increase physical activity Relat ed to Acute bronchitis Weight management Related to Acu te bronchitis Prescribed dietary intake Relate d to Body mass index (BMI) 37.0-37.9, adult Increase physical activity Relat ed to Fatigue Weight management Related to Fat igue Follow a low sodium diet. Relate d to Essential (primary) hypertension Special diet education Related t o Body mass index (BMI) 37.0-37.9, adult Increase activity. Related to Es sential (primary) hypertension Special diet education Related t o Body mass index (BMI) 37.0-37.9, adult Increase physical activity Relat ed to Encounter for general adult medical exam w abnormal findings Weight management Related to Enc ounter for general adult medical exam w abnormal findings Special diet education Related t o Body mass index (BMI) 38.0-38.9, adult Increase physical activity Relat ed to Abnormal weight gain Special diet education Related t o Body mass index (BMI) 37.0-37.9, adult Weight management Related to Abn ormal weight gain Special diet education Related t o Body mass index (BMI) 37.0-37.9, adult Increase activity. Related to Es sential (primary) hypertension Special diet education Related t o Body mass index (BMI) 37.0-37.9, adult Increase activity. Related to Es sential (primary) hypertension Follow a low sodium diet. Relate d to Essential (primary) hypertension Special diet education Related t o Body mass index (BMI) 37.0-37.9, adult Increase physical activity Relat ed to Dysphagia Weight management Related to Dys phagia Special diet education Related t o Body mass index (BMI) 37.0-37.9, adult Increase physical activity Relat ed to Dysphagia Weight management Related to Dys phagia Prescribed dietary intake Relate d to Body mass index (BMI) 37.0-37.9, adult Increase physical activity Relat ed to Chronic pain syndrome Weight management Related to Chr onic pain syndrome Special diet education Related t o Body mass index (BMI) 36.0-36.9, adult Weight management Related to Chr onic pain syndrome Weight management Related to Chr onic pain syndrome Special diet education Related t o Body mass index (BMI) 36.0-36.9, adult Increase physical activity Relat ed to Asthma Weight management Related to Ast hma Special diet education Related t o Body mass index (BMI) 36.0-36.9, adult Weight management Related to Chr onic pain syndrome Special diet education Related t o Body mass index (BMI) 36.0-36.9, adult Weight management Related to Abn ormal weight gain Increase physical activity Relat ed to Chronic pain syndrome Weight management Related to Chr onic pain syndrome Special diet education Related t o Body mass index (BMI) 36.0-36.9, adult Special diet education Related t o Body mass index (BMI) 37.0-37.9, adult Increase physical activity Relat ed to Dietary surveillance and counseling Weight management Related to tary surveillance and counseling Prescribed Activity and Exercise Education Related to Dietary Surveillance and Counseling Prescribed Diet Educ ation/Lifestyle Education Regarding Diet Related to Dietary Surveillance and Counseling Weight management Related to Chr onic pain syndrome Prescribed Activity and Exercise Education Related to Dietary Surveillance and Counseling Prescribed Diet Educ ation/Lifestyle Education Regarding Diet Related to Dietary Surveillance and Counseling Increase physical activity Relat ed to Chronic pain syndrome Weight management Related to Chr onic pain syndrome Prescribed Activity and Exercise Education Related to Dietary Surveillance and Counseling Prescribed Diet Educ ation/Lifestyle Education Regarding Diet Related to Dietary Surveillance and Counseling Prescribed Activity and Exercise Education Related to Dietary Surveillance and Counseling Prescribed Diet Educ ation/Lifestyle Education Regarding Diet Related to Dietary Surveillance and Counseling Increase physical activity Relat ed to Chronic pain syndrome Weight management Related to Chr onic pain syndrome Prescribed Activity and Exercise Education Related to Dietary Surveillance and Counseling Prescribed Diet Educ ation/Lifestyle Education Regarding Diet Related to Dietary Surveillance and Counseling Increase physical activity Relat ed to Chronic pain syndrome Weight management Related to Chr onic pain syndrome Prescribed Diet Educ ation/Lifestyle Education Regarding Diet Related to Dietary Surveillance and Counseling Increase physical activity Relat ed to Insomnia Weight management Related to Ins omnia Prescribed Activity and Exercise Education Related to Dietary Surveillance and Counseling Prescribed Activity and Exercise Education Related to Dietary Surveillance and Counseling Prescribed Diet Educ ation/Lifestyle Education Regarding Diet Related to Dietary Surveillance and Counseling Patient instructed o n use of saline sprays. Related to Allergic rhinitis Allergy testing information give n. Related to Allergic rhinitis Instructions given f or sinus irrigation. Related to Allergic rhinitis Prescribed Activity and Exercise Education Related to Dietary Surveillance and Counseling Prescribed Diet Educ ation/Lifestyle Education Regarding Diet Related to Dietary Surveillance and Counseling Increase physical activity Relat ed to Chronic pain syndrome Weight management Related to Chr onic pain syndrome Prescribed Activity and Exercise Education Related to Dietary Surveillance and Counseling Prescribed Diet Educ ation/Lifestyle Education Regarding Diet Related to Dietary Surveillance and Counseling Prescribed Diet Educ ation/Lifestyle Education Regarding Diet Related to Dietary Surveillance and Counseling Prescribed Activity and Exercise Education Related to Dietary Surveillance and Counseling Prescribed Activity and Exercise Education Related to Dietary Surveillance and Counseling Prescribed Diet Educ ation/Lifestyle Education Regarding Diet Related to Dietary Surveillance and Counseling Prescribed Diet Educ ation/Lifestyle Education Regarding Diet Related to Dietary Surveillance and Counseling Prescribed Activity and Exercise Education Related to Dietary Surveillance and Counseling Prescribed Activity and Exercise Education Related to Dietary Surveillance and Counseling Prescribed Diet Educ ation/Lifestyle Education Regarding Diet Related to Dietary Surveillance and Counseling Prescribed Activity and Exercise Education Related to Dietary Surveillance and Counseling Prescribed Diet Educ ation/Lifestyle Education Regarding Diet Related to Dietary Surveillance and Counseling Prescribed Activity and Exercise Education Related to Dietary Surveillance and Counseling Prescribed Diet Educ ation/Lifestyle Education Regarding Diet Related to Dietary Surveillance and Counseling Prescribed Activity and Exercise Education Related to Dietary Surveillance and Counseling Prescribed Diet Educ ation/Lifestyle Education Regarding Diet Related to Dietary Surveillance and Counseling Prescribed Diet Educ ation/Lifestyle Education Regarding Diet Related to Dietary Surveillance and Counseling Prescribed Activity and Exercise Education Related to Dietary Surveillance and Counseling Prescribed Activity and Exercise Education Related to Dietary Surveillance and Counseling Prescribed Diet Educ ation/Lifestyle Education Regarding Diet Related to Dietary Surveillance and Counseling Prescribed Diet Educ ation/Lifestyle Education Regarding Diet Related to Dietary Surveillance and Counseling Prescribed Activity and Exercise Education Related to Dietary Surveillance and Counseling Prescribed Activity and Exercise Education Related to Dietary Surveillance and Counseling Prescribed Diet Educ ation/Lifestyle Education Regarding Diet Related to Dietary Surveillance and Counseling Prescribed Activity and Exercise Education Related to Dietary Surveillance and Counseling Prescribed Diet Educ ation/Lifestyle Education Regarding Diet Related to Dietary Surveillance and Counseling Prescribed Activity and Exercise Education Related to Dietary Surveillance and Counseling Prescribed Diet Educ ation/Lifestyle Education Regarding Diet Related to Dietary Surveillance and Counseling Prescribed Activity and Exercise Education Related to Dietary Surveillance and Counseling Prescribed Diet Educ ation/Lifestyle Education Regarding Diet Related to Dietary Surveillance and Counseling Prescribed Activity and Exercise Education Related to Dietary Surveillance and Counseling Prescribed Diet Educ ation/Lifestyle Education Regarding Diet Related to Dietary Surveillance and Counseling Prescribed Activity and Exercise Education Related to Dietary Surveillance and Counseling Prescribed Diet Educ ation/Lifestyle Education Regarding Diet Related to Dietary Surveillance and Counseling Prescribed Activity and Exercise Education Related to Dietary Surveillance and Counseling Prescribed Diet Educ ation/Lifestyle Education Regarding Diet Related to Dietary Surveillance and Counseling Prescribed Activity and Exercise Education Related to Dietary Surveillance and Counseling Prescribed Diet Educ ation/Lifestyle Education Regarding Diet Related to Dietary Surveillance and Counseling Prescribed Activity and Exercise Education Related to Dietary Surveillance and Counseling Prescribed Diet Educ ation/Lifestyle Education Regarding Diet Related to Dietary Surveillance and Counseling Prescribed Diet Educ ation/Lifestyle Education Regarding Diet Related to Dietary Surveillance and Counseling Prescribed Activity and Exercise Education Related to Dietary Surveillance and Counseling Prescribed Activity and Exercise Education Related to Dietary Surveillance and Counseling Prescribed Diet Educ ation/Lifestyle Education Regarding Diet Related to Dietary Surveillance and Counseling Prescribed Activity and Exercise Education Related to Dietary Surveillance and Counseling Prescribed Diet Educ ation/Lifestyle Education Regarding Diet Related to Dietary Surveillance and Counseling Prescribed Activity and Exercise Education Related to Dietary Surveillance and Counseling Prescribed Diet Educ ation/Lifestyle Education Regarding Diet Related to Dietary Surveillance and Counseling Prescribed Activity and Exercise Education Related to Dietary Surveillance and Counseling Prescribed Diet Educ ation/Lifestyle Education Regarding Diet Related to Dietary Surveillance and Counseling Prescribed Activity and Exercise Education Related to Dietary Surveillance and Counseling Prescribed Diet Educ ation/Lifestyle Education Regarding Diet Related to Dietary Surveillance and Counseling Prescribed activity/ exercise education Related to Dietary surveillance and counseling Special diet education Related t o Dietary surveillance and counseling Physical activity counseling Rel ated to Dietary surveillance counseling Decrease caloric intake Related to Dietary surveillance counseling Physical activity counseling Rel ated to Dietary surveillance counseling Decrease caloric intake Related to Dietary surveillance counseling Physical activity counseling Rel ated to Dietary surveillance counseling Decrease caloric intake Related to Dietary surveillance counseling Physical activity counseling Rel ated to Dietary surveillance counseling Decrease caloric intake Related to Dietary surveillance counseling Physical activity counseling Rel ated to Dietary surveillance counseling Decrease caloric intake Related to Dietary surveillance counseling Physical activity counseling Rel ated to Dietary surveillance counseling Decrease caloric intake Related to Dietary surveillance counseling Decrease caloric intake Related to Dietary surveillance counseling Dietary counseling Related to Di etary surveillance counseling Decrease caloric intake Related to Dietary surveillance counseling Dietary counseling Related to Di etary surveillance counseling Decrease caloric intake Related to Dietary surveillance counseling Dietary counseling Related to Di etary surveillance counseling Dietary counseling Related to Di etary surveillance counseling Decrease caloric intake Related to Dietary surveillance counseling Dietary counseling Related to Di etary surveillance counseling Decrease caloric intake Related to Dietary surveillance counseling Dietary counseling Related to Di etary surveillance counseling Decrease caloric intake Related to Dietary surveillance counseling Dietary counseling Related to Di etary surveillance counseling Decrease caloric intake Related to Dietary surveillance counseling Dietary counseling Related to Di etary surveillance counseling Decrease caloric intake Related to Dietary surveillance counseling Dietary counseling Related to Di etary surveillance counseling Decrease caloric intake Related to Dietary surveillance counseling Dietary counseling Related to Di etary surveillance counseling Decrease caloric intake Related to Dietary surveillance counseling Dietary counseling Related to Di etary surveillance counseling Decrease caloric intake Related to Dietary surveillance counseling Dietary counseling Related to Di etary surveillance counseling Decrease caloric intake Related to Dietary surveillance counseling Dietary counseling Related to Di etary surveillance counseling Decrease caloric intake Related to Dietary surveillance counseling Dietary counseling Related to Di etary surveillance counseling Decrease caloric intake Related to Dietary surveillance counseling Dietary counseling Related to Di etary surveillance counseling Decrease caloric intake Related to Dietary surveillance counseling Dietary counseling Related to Di etary surveillance counseling Decrease caloric intake Related to Dietary surveillance counseling Dietary counseling Related to Di etary surveillance counseling Decrease caloric intake Related to Dietary surveillance counseling Dietary counseling Related to Di etary surveillance counseling Decrease caloric intake Related to Dietary surveillance counseling Dietary counseling Related to Di etary surveillance counseling Decrease caloric intake Related to Dietary surveillance counseling Decrease caloric intake Related to Dietary surveillance counseling Dietary counseling Related to Di etary surveillance counseling Dietary counseling Related to Di etary surveillance counseling Decrease caloric intake Related to Dietary surveillance counseling Dietary counseling Related to Di etary surveillance counseling Decrease caloric intake Related to Dietary surveillance counseling Decrease caloric intake Related to Dietary surveillance counseling Dietary counseling Related to Di etary surveillance counseling Decrease caloric intake Related to Dietary surveillance counseling Dietary counseling Related to Di etary surveillance counseling Decrease caloric intake Related to Dietary surveillance counseling Dietary counseling Related to Di etary surveillance counseling Dietary counseling Related to Di etary surveillance counseling Decrease caloric intake Related to Dietary surveillance counseling Dietary counseling Related to Di etary surveillance counseling Decrease caloric intake Related to Dietary surveillance counseling Decrease caloric intake Related to Dietary surveillance counseling Dietary counseling Related to Di etary surveillance counseling Dietary counseling Related to Di etary surveillance counseling Decrease caloric intake Related to Dietary surveillance counseling Assessments Type Assessment Date assessment Chronic pain syndrome assessment Attention deficit assessment GERD w/o esophagitis assessment Mild intermittent asthma, uncomp licated assessment Hirsutism Mental Status Date Cognitive Assessment Orientation - [place] ed to time, place, person, situation.
--- OUTSIDE RECORDS SUMMARY | 2025-01-10 01:10 | XMS_ITS | Clinical Summary ---
Author Organization [facility] Address [address] [place] [address] Care Team Providers Care Corporation Officer Name Role Phone Referral, Self Unavailable Unavailable Rosy Cote MD Unavailable [phone] Charla Brothers MD Unavailable Tal Rosario MD Primary Care Provider Allergies Active Allergy Reactions Criticality Noted Date [...] Obesity, morbid 05/24/2024 JAK2 gene mutation 05/03/2024 Surgical History Surgery Date Site/Laterality Comments DILATION AND CURETTAGE OF UTERUS 09/22/1987 - 09/21/1988 SECTION 09/22/1995 - 09/21/1996 and 2004 ABLATION 09/22/2012 - 09/21/2013 Medical History Medical History Date Comments Anxiety Asthma Depression Cancer (HCC) Family History Medical History Relation Name Comments Colon cancer Brother Pancreatic cancer Father Non-Hodgkin's Lymphoma Mother Relation Name Status Comments Brother Father Mother Social History Tobacco Use Types Packs/Day [...] on file Legal Sex Female 7:07 PM .NET ARCHITECT Gender Identity Not on file Sexual Orientation Not on file Obstetrics History Last Filed Vital Signs Vital Sign Reading Time Taken Comments Blood Pressure 136/90 08/16/2024 2:19 PM .NET ARCHITECT Pulse 91 08/16/2024 2:19 PM .NET ARCHITECT Temperature 36.7 C (98.1 F) 08/16/2024 2:19 PM .NET ARCHITECT Respiratory Rate 19 08/16/2024 2:19 PM .NET ARCHITECT Oxygen Saturation 97% 08/16/2024 2:19 PM .NET ARCHITECT Inhaled Oxygen Concentration - - Weight 129 kg (284 lb 6.4 oz) 08/16/2024 2:19 PM .NET ARCHITECT Height 172.7 cm (5' 8 ) 05/07/2024 2:46 PM CDT Body Mass Index 43.24 05/07/2024 2:46 PM CDT Plan of Treatment Health Maintenance Due Date Last Done Comments Breast Cancer Screening-Mammogram 1968 Cervical Cancer Screening 1968 Colon Cancer Screening-Colonoscopy 1968 Depression Screening 1968 Hepatitis C Screening 1968 DTaP/Tdap/Td Vaccine (1 - Tdap) 1979 Hepatitis B Screening 1986 Regular Well Visit/Exam 18-64 1986 Pneumococcal vaccine <65 (1 of 2 - PCV) 1987 Zoster Vaccine (1 of 2) 2018 Influenza Vaccine (#1) 2024 Insurance [facility] MEDICARE [place] [employer] MEDICARE [employer] Care Teams Corporation Officer Relationship Specialty Start Date End Date Tal Rosario MD [address] [place] [address] PCP - General Family Medicine 05/07/24 Referral, Self 04/30/24 Rosy Cote MD Consulting Physician Hematology 04/30/24 Charla Brothers MD [address] [facility] [address] [place] [address] Referring Physician Hematology 05/05/24
--- OUTSIDE RECORDS SUMMARY | 2025-01-10 01:10 | XMS_ITS | Clinical Summary ---
Author Organization [facility] Address [address] [place] [address] Care Team Providers Care Billiard Player Name Role Phone Tal Rosario MD Primary Care Provider [phone] Allergies Active Allergy Reactions Criticality Noted Date Comments Penicillin G Rash Low 02/20/2023 Medications spironolactone (ALDACTONE) 50 MG tablet Take 1 tablet (50 mg total) by mouth daily. 3 Active albuterol sulfate HFA (VENTOLIN HFA) 108 (90 Base) MCG/ACT inhaler inhale 2 puff by inhalation route every 4 - 6 hours as needed as needed 2 Active amphetamine-dex troamphetamine (ADDERALL) 15 MG tablet Take 1 tablet (15 mg total) by mouth 2 (two) times daily. 3 Active cyclobenzaprine (FLEXERIL) 10 MG tablet Take 1 tablet (10 mg total) by mouth 2 (two) times daily as needed. 3 Active diazePAM (VALIUM) 10 MG tablet Take 1 tablet (10 mg total) by mouth. Active HYDROcodone-rickey taminophen (NORCO) 7.5-325 MG tablet Take 1 tablet by mouth 3 (three) times daily as needed. 3 Active diphenhydrAMINE (BENADRYL) 25 MG capsule Take 1 capsule (25 mg total) by mouth every 6 (six) hours as needed for Itching. 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/19 15 Malaise and fatigue 06/17/2014 Essential hypertension 12/10/2012 Obesity 09/17/2012 HLD (hyperlipidemia) 08/20/2012 Child attention deficit disorder 06/25/2012 SHAHRIAR (generalized anxiety disorder) 06/25/2012 Low back pain 06/25/2012 Social History Tobacco Use Types Packs/Day Years Used Date Smoking Tobacco: Never Smokeless Tobacco: Never Tobacco Cessation:Counseling Given: Not Answered Alcohol Use Standard Drinks/Week Comments Not Currently 0 (1 standard drink = 0.6 oz pur e alcohol) Comments Unknown Sex and Gender Information Value Date Recorded Sex Assigned at Not on file Legal Sex Female 8:16 PM CDT Gender Identity Not on file Sexual Orientation Not on file Last Filed Vital Signs Vital Sign Reading Time Taken Comments Blood Pressure 138/87 02/21/2023 9:10 AM CDT Pulse 57 02/21/2023 9:10 AM CDT Temperature 36.5 C (97.7 F) 02/21/2023 9:00 AM CDT Respiratory Rate 17 02/21/2023 9:10 AM CDT Oxygen Saturation - - Inhaled Oxygen Concentration - - Weight 127 kg (280 lb) 02/20/2023 3:08 PM CDT Height 172.7 cm (5' 8 ) 02/20/2023 3:08 PM CDT Body Mass Index 42.57 02/20/2023 3:08 PM CDT Plan of Treatment Health Maintenance Due Date Last Done Comments Cervical Cancer Screening Pa p Smear (Age 30 to 64) Every 3 Years 1968 Colorectal Cancer Screening Colonoscopy (10 Years) 1968 Annual Physical 1971 Hepatitis C 1986 DTaP, Tdap and Td Vaccines ( 1 - Tdap) 1987 Hepatitis B Vaccines (1 of 3 - 19+ 3-dose series) 1987 Cervical Cancer Screening Pa p with HPV Testing (Age 30 to 64) Every 5 Years 1998 Cervical Cancer Screening with HPV 1998 Mammogram Screening 2008 Pneumococcal Vaccine: 50+ Ye ars (1 of 1 - PCV) 2018 Zoster Vaccines (1 of 2) 2018 COVID-19 Vaccine ( - 2023-2 5 season) 2024 Meningococcal B Vaccine Aged Out No l onger eligible based on patient's age to complete this topic Meningococcal Vaccine Aged Out No luis f ambar eligible based on patient's age to complete this topic RSV Immunizations Under 20 Months Aged Out No longer eligible based on patient's age to complete this topic Insurance [employer] Care Teams Billiard Player Relationship Specialty Start Date End Date Tal Rosario MD [address] [place] [id number] PCP - General FAMILY PRACTICE 12/09/22
[2025-01-10 11:02] VITALS: BP 134/92; PULSE 80; RESP 18; TEMP 36.1; O2SAT 100
[2025-01-10] MEDS: LACTATED RINGERS 1,000 ML 150 ML IV CONT (11:16)
--- NOTE | 2025-01-10 11:32 | P.PNAN_ITS ---
Anes - Initial Pre Proc Eval Procedure: Operation Date: 01/10/25 11:45 Proposed Procedures p Esophagogastroduodenoscopy - Wilder Holcomb MD Date/Time: 01/10/25 11:32 Surgeon: Wilder Holcomb MD Pre Op Diagnosis: Foreign body sensation, throat, GERD Patient Data Age: 54 Gender: F Height: 1.73 m Weight: 133.5 kg Last Vital Signs Temp 36.1 C L 01/10/25 11:02 Pulse 80 01/10/25 11:02 Resp 18 01/10/25 11:02 BP 134/92 H 01/10/25 11:02 Pulse Ox 100 01/10/25 11:02 O2 Del Method Room Air 01/10/25 11:02 Allergies Allergy/AdvReac Type Severity Reaction Status Date / Time naproxen Allergy Mild ITCHING Verified 01/10/25 11:01 AND RASH Penicillins Allergy Mild RASH WITH Verified 01/10/25 11:01 ITCHING fentanyl AdvReac Unknown N&V Verified 01/10/25 11:01 Home Medications ?Medication ?Instructions ?Recorded ?Confirmed ?Type cyclobenzaprine 10 mg tablet 10 mg PO BID PRN Spasms 03/04/24 01/07/25 History dextroamphetamine-amphetamine 15 15 mg PO BID 03/04/24 01/07/25 History mg tablet hydrocodone 7.5 mg-acetaminophen 1 tablet PO TID PRN Pain 03/04/24 01/07/25 History 325 mg tablet albuterol sulfate 90 mcg/actuation 1 puff inhalation PRN PRN 05/31/24 01/07/25 History aerosol inhaler Shortness Of Breath Or Wheezing diazepam 10 mg tablet 10 mg PO BID PRN muscle spasms 05/31/24 01/07/25 History omeprazole 20 mg capsule,delayed 20 mg PO DAILY 12/28/24 01/07/25 History release aspirin 81 mg tablet,delayed 81 mg PO DAILY 01/07/25 01/07/25 History release (Enteric Coated Aspirin) spironolactone 50 mg tablet 50 mg PO DAILY 01/07/25 01/07/25 History Patient hx anesthesia problems: none Family hx anesthesia problems: none Results Review: All pre-operative results and documents have been reviewed as part of the pre- operative evaluation. [facility] Past Medical History Medical History (Updated 01/10/25 @ 11:33 by [place] Feliz MD) PTSD (post-traumatic stress disorder) Depression Polycythemia Morbid obesity Family history of colon cancer Surgical History Surgical History (Updated 01/10/25 @ 11:32 by West Feliz MD) H/O colonoscopy Social History Social History Smoking status: Never smoker Alcohol intake: never Substance use: former Substance use type: marijuana Other substance usage details: Frequency varies, patient has not used recently Last use: Pt unsure Living arrangements: with family Spiritual care concerns: No Anes - Eval Final PreProcedure Day of Procedure 01/10/25 11:32 Patient weight: morbidly obese Heart: regular rate and rhythm Lungs: clear to auscultation Airway: Mallampati scale class II Neurological: alert and oriented Last oral intake: >/= 8 hours ASA classification: III Emergent: no Anesthetic plan: proceed Anesthesia type and monitoring: general GIVS and standard monitoring Results Review: All pre-operative results and documents have been reviewed as part of the pre- operative evaluation. Informed Consent: The patient's anesthetic plan and its attendant risks and benefits were discussed with the patient/family/POA. Questions were solicited and answers provided to the satisfaction of the patient/family/POA.
--- NOTE | 2025-01-10 12:28 | WPDHPUPDATE1 ---
History and Physical Update Update Date/Time: 01/10/25 12:28 History and Physical has been reviewed, including an updated exam of the patient. There are NO changes in the patient's condition. Risks, benefits, and alternatives have been discussed and questions answered. Patient agrees to proceed with procedure.
[2025-01-10 12:42] VITALS: BP 145/85; PULSE 68; RESP 17; O2SAT 100
[2025-01-10 12:52] VITALS: BP 160/80; PULSE 66; RESP 17; O2SAT 100
[2025-01-10 13:02] VITALS: BP 145/76; PULSE 60; RESP 23; O2SAT 100
--- NOTE | 2025-01-10 13:15 | SUR.PHASEII ---
pt stated felt nausea after waking up. Offered the patient to have a drink to help with nausea. Patient stated I still feel nausea after having some of the drink. Offered the option to get an order from anesthesia for medication to help with symptom. Patient stated don't want medication through IV, Ill just take my nausea pill when I get home . Patient also stated to have nausea all the time and that it is common for her. Patient was educated to call the physicans number if she has any concerns or questions.
== END 2025-01-10 13:23 | disposition home or self-care (01) ==
PROVIDERS: PCP Emergency Medicine; Referring Provider Nurse Practitioner Family; Visit Provider Internal Medicine Gastroenterology
PROC: 0DJ08ZZ Inspection of Upper Intestinal Tract, Via Natural or Artificial Opening Endoscopic (ICD-10-PCS; CPT 43239; principal; 2025-01-10 11:45)
DX: K21.9 Gastro-esophageal reflux disease without esophagitis (principal); K22.2 Esophageal obstruction; K44.9 Diaphragmatic hernia without obstruction or gangrene; I10 Essential (primary) hypertension; E78.5 Hyperlipidemia, unspecified; K59.04 Chronic idiopathic constipation; F43.10 Post-traumatic stress disorder, unspecified; F32.A Depression, unspecified; F12.90 Cannabis use, unspecified, uncomplicated; E66.01 Morbid (severe) obesity due to excess calories; Z68.41 Body mass index [BMI] 40.0-44.9, adult; Z79.891 Long term (current) use of opiate analgesic; Z79.51 Long term (current) use of inhaled steroids; Z79.82 Long term (current) use of aspirin; Z98.890 Other specified postprocedural states; Z80.0 Family history of malignant neoplasm of digestive organs
CPT/HCPCS: 43239; 43249; 88305; C1726; J2003; J2704; J7120